=== PATIENT | male | born 1965 | race Caucasian/White ===

== ENCOUNTER 2017-10-27 00:10 | Inpatient (IN) | payer OTHER ==
--- NOTE | 2017-10-27 00:38 | PDOC ---
History of Present Illness - General History Source: Patient, Family Exam Limitations: Intoxication - History of Present Illness Initial Comments: 10/27/17 01:08 The patient is a 52 year old male, with a significant past medical history of colitis, who presents to the emergency department s/p syncopal episode at approximately 23:00 yesterday night. As per partner, the patient returned home from work intoxicated. Partner reports, patient went in to shower, when she heard a thud and a gurgling noise. Partner reports opening the bathroom door where she found the patient unconscious and cyanotic at the upper and lower extremities. EMS was activated. When EMS arrived on scene, patient was given 0.4 mg of Narcan. During transport patient admits to taking 4 Percocets and drinking 1.5 pints of alcohol. Patient states his Percocet was prescribed after a tooth extraction 6 months ago. However, as per partner, patient was only given Tylenol at the time. Partner also notes patient hit his head and was bleeding from his forehead at the time of the incident. Patient denies any headache, dizziness, or lightheadedness. He denies any abdominal pain, nausea, or vomiting. He reports some shortness of breath, but denies any chest pain, diaphoresis, or palpitations. He denies any fever, chills, or cough. Patient is not on any blood thinners. Allergies: NKDA Past Surgical History: Colon surgery Social History: Current everyday smoker( 1 pack per day since the age of 14.) ETOH abuse. Percocet use. <Hugo Lam - Last Filed: 10/27/17 02:15> <Madalyn Jiménez - Last Filed: 10/28/17 10:10> - General Stated Complaint: FALL Time Seen by Provider: 10/27/17 00:38 Past History <Hugo Lam - Last Filed: 10/27/17 02:15> - Past Medical History GI Disorders: Yes (COLITIS) - Surgical History Abdominal Surgery: Yes (COLON SURGERY 1989) - Suicide/Smoking/Psychosocial Hx Smoking Status: Yes Smoking History: Current every day smoker Number of Cigarettes Smoked Daily: 5 Hx Alcohol Use: Yes (OCCASIONALLY) Substance Use Type: Alcohol <Madalyn Jiménez - Last Filed: 10/28/17 10:10> - Past Medical History Allergies/Adverse Reactions: Allergies Allergy/AdvReac Type Severity Reaction Status Date / Time shellfish derived Allergy Verified 11/24/13 14:27 Home Medications: Ambulatory Orders No Home Medications 0 dose .ROUTE UTDICT 12/31/12 Review of Systems - Review of Systems Able to Perform ROS?: Yes Comments:: 10/27/17 01:09 GENERAL/CONSTITUTIONAL: +Intoxication. No fever or chills. No weakness. HEAD, EYES, EARS, NOSE AND THROAT: +Forehead laceration. No change in vision. No ear pain or discharge. No sore throat. CARDIOVASCULAR: +Shortness of breath. No chest pain or palpitations. RESPIRATORY: No cough, wheezing, or hemoptysis. GASTROINTESTINAL: No nausea, vomiting, diarrhea or constipation. GENITOURINARY: No dysuria, frequency, or change in urination. MUSCULOSKELETAL: No joint or muscle swelling or pain. No neck or back pain. SKIN: +Cyanotic. No rash NEUROLOGIC: +Loss of consciousness. No headache, vertigo, or change in strength/ sensation. ENDOCRINE: No increased thirst. No abnormal weight change. HEMATOLOGIC/LYMPHATIC: No anemia, easy bleeding, or history of blood clots. ALLERGIC/IMMUNOLOGIC: No hives or skin allergy. <Hugo Lam - Last Filed: 10/27/17 02:15> *Physical Exam - Physical Exam Comments: 10/27/17 01:45 GENERAL: Lethargic, arousable to sternal rub. In no acute distress HEAD: 2 lacerations above right eyebrow 2 cm and 1.5 cm respectively. No other signs of trauma EYES: PERRLA, EOMI, sclera anicteric, conjunctiva clear ENT: Auricles normal inspection, hearing grossly normal, nares patent, oropharynx clear without exudates. Moist mucosa NECK: Normal ROM, supple, no lymphadenopathy, JVD, or masses. No midline tenderness. LUNGS: +Diffuse ronchi bilaterally. No wheezes, rales, and no crackles HEART: +Tachycardic. Regular rhythm, normal S1 and S2, no murmurs, rubs or gallops ABDOMEN: Soft, nontender, normoactive bowel sounds. No guarding, no rebound. No masses EXTREMITIES: +Clubbing of fingers bilaterally. Normal range of motion, no edema. No cords, erythema, or tenderness NEUROLOGICAL: Lethargic, but arousable. Moving all extremities. Orientedx2. Cranial nerves II through XII grossly intact. SKIN: Warm, Dry, normal turgor, no rashes or lesions noted. <Hugo Lam - Last Filed: 10/27/17 02:15> ED Treatment Course - LABORATORY CBC & Chemistry Diagram: 10/27/17 00:50 10/27/17 00:50 - ADDITIONAL ORDERS Additional order review: Laboratory Results 10/27/17 00:42 Urine Color Yellow Urine Appearance Slcloudy Urine pH 5.0 Ur Specific [place] 1.017 Urine Protein 3+ H Urine Glucose (UA) 1+ H Urine Ketones Negative Urine Blood Negative Urine Nitrite Negative Urine Bilirubin Negative Urine Urobilinogen Negative Ur Leukocyte Esterase Negative Urine WBC (Auto) 10 Urine RBC (Auto) 7 Ur Epithelial Cells Few Hyaline Casts 3 Urine Mucus Rare 10/27/17 00:50 RBC 4.83 MCV 95.0 MCHC 33.7 RDW 13.3 MPV 8.0 Neutrophils % 55.1 Lymphocytes % 35.6 Monocytes % 7.3 Eosinophils % 1.4 Basophils % 0.6 - RADIOLOGY Radiograph Interpretation: 10/27/17 02:16 EXAM: Head CT INTERPRETED BY: Dr. Puma French REVIEWED BY: Dr. Jiménez IMPRESSION:1. There is no intracranial bleed, extra-axial fluid collection, mass effect, midline shift, hydrocephalus, acute territorial infarct or depressed skull fracture. 2. Left maxillary sinus disease/sinusitis. <Hugo Lam - Last Filed: 10/27/17 02:15> - LABORATORY CBC & Chemistry Diagram: 10/27/17 06:00 10/27/17 06:00 <Madalyn Jiménez - Last Filed: 10/28/17 10:10> Medical Decision Making - Medical Decision Making 10/27/17 01:51 pt presents to the ED after found minimally responsive by his family. Awoke after narcan by EMS. In the ED, patient is lethargic, requiring repeat doses of narcan. + diffuse rhonchi. CXR checked to rule out PNA and is positive for diffuse left sided infiltrate. Will check Ct head and C spine to rule out intracranial or cervical spinal injury. Will check labs and treat PNA with antibiotics. Will likely admit for inpatient treatemnt of PNA given the extent of the pnumonia and his persistent hypoxia. <Madalyn Jiménez - Last Filed: 10/28/17 10:10> *DC/Admit/Observation/Transfer - Attestations Scribe Attestion: 10/27/17 01:18 Documentation prepared by Hugo Lam, acting as medical practice administrator for Madalyn Jiménez MD. <Hugo Lam - Last Filed: 10/27/17 02:15> - Discharge Dispostion Admit: Yes <Madalyn Jiménez - Last Filed: 10/28/17 10:10> Diagnosis at time of Disposition: Intoxication, Laceration Pneumonia Qualifiers: Pneumonia type: due to unspecified organism Laterality: left Lung location: lower lobe of lung Qualified Code(s): J18.1 - Lobar pneumonia, unspecified organism - Discharge Dispostion Condition at time of disposition: Stable
[2017-10-27] MEDS ORDERED: NALOXONE HCL 0.4 MG/ML VIAL ONE ×2 (00:55→02:07)
[2017-10-27 00:56] LABS: URINE APPEARANCE SLCLOUDY; URINE BILIRUBIN NEGATIVE (NEGATIVE); URINE BLOOD NEGATIVE (NEGATIVE); URINE COLOR YELLOW; URINE GLUCOSE (UA) 1+ (NEGATIVE); URINE KETONE NEGATIVE (NEGATIVE); URINE LEUK ESTERASE NEGATIVE (NEGATIVE); URINE NITRITE NEGATIVE (NEGATIVE); URINE UROBILINOGEN NEGATIVE mg/dL (0.2-1.0)
[2017-10-27 00:58] LABS: URINE PROTEIN 3+ (NEGATIVE)
[2017-10-27 00:59] LABS: BASO % 0.6 % (0-2.0); EOS % 1.4 % (0-4.5); HEMATOCRIT 45.9 % (35.4-49); HEMOGLOBIN 15.5 GM/dL (11.7-16.9); LYMPH % 35.6 % (8-40); MCHC 33.7 g/dl (32.0-35.9); MONO % 7.3 % (3.8-10.2); NEUT % 55.1 % (42.8-82.8); PLATELET COUNT 302 K/MM3 (134-434); RBC 4.83 M/mm3 (4.00-5.60); RDW 13.3 % (11.9-15.9); WHITE BLOOD COUNT 16.1 K/mm3 (4.0-10.0)
[2017-10-27 01:01] LABS: EPI CELLS FEW /HPF (FEW); URINE HYALINE CAST 3 /lpf; URINE MUCUS RARE
[2017-10-27] MEDS ORDERED: NALOXONE HCL 0.4 MG/ML VIAL IVPUSH ONE (01:19)
[2017-10-27] MEDS ORDERED: ALBUTEROL SO4 2.5/IPRATROPIUM 0.5 INH SOL 3 ML VIAL.NEB. NEB ONE (01:27)
[2017-10-27 01:30] LABS: ALBUMIN 4.3 g/dl (3.4-5.0); ANION GAP 12 (8-16); BILIRUBIN,TOTAL 0.6 mg/dL (0.2-1.0); BLOOD UREA NITROGEN 16 mg/dL (7-18); CALCIUM 8.5 mg/dL (8.5-10.1); CHLORIDE 104 mmol/L (98-107); CO2 24 mmol/L (21-32); CREATININE 0.8 mg/dL (0.7-1.3); GLUCOSE,RANDOM 192 mg/dL (74-106); POTASSIUM 3.5 mmol/L (3.5-5.1); SGOT/AST 148 U/L (15-37); SGPT/ALT 111 U/L (12-78); SODIUM 140 mmol/L (136-145); TOT PROT 7.7 g/dl (6.4-8.2)
[2017-10-27 01:31] LABS: ALK PHOS 98 U/L (45-117)
[2017-10-27] MEDS ORDERED: CEFTRIAXONE 1 GM in DEXTROSE 5%-WATER - 50 ML IVPB ONE (01:44)
[2017-10-27] MEDS ORDERED: AZITHROMYCIN IVPB 500 MG in DEXTROSE 5%-WATER - 250 ML IVPB ONE (01:44)
[2017-10-27] MEDS ORDERED: LIDOCAINE 1%/EPI 1:100000 (20 ML MULTI DOSE VIAL) INF ONE (01:47)
[2017-10-27] MEDS ORDERED: LIDOCAINE 1%/EPI 1:100000 (20 ML MULTI DOSE VIAL) ONE (01:47)
[2017-10-27] MEDS ORDERED: CEFTRIAXONE 1 GM/50 ML BAG ONE (01:48)
[2017-10-27] MEDS ORDERED: AZITHROMYCIN IVPB 250 ML IVPB ONE (01:48)
[2017-10-27] MEDS ORDERED: DIPHTH,PERTUSS(ACELL),TET 0.5 ML DISP.SYRIN IM ONE (01:51)
[2017-10-27 02:28] LABS: METHADONE, UR NEGATIVE ng/ml (CUTOFF=300); PHENCYCLIDINE,URINE NEGATIVE ng/ml (CUTOFF=25); URINE AMPHETAMINES NEGATIVE ng/ml (CUTOFF=500); URINE BARBITURATES NEGATIVE ng/ml (CUTOFF=200); URINE BENZODIAZEPINES NEGATIVE ng/ml (CUTOFF=200)
[2017-10-27 02:34] LABS: COCAINE, UR POSITIVE ng/ml (CUTOFF=300)
[2017-10-27 02:35] LABS: OPIATES, URI POSITIVE ng/ml (CUTOFF=300)
--- NOTE | 2017-10-27 03:07 | PDOC ---
*Physical Exam - Vital Signs Last Vital Signs Temp Pulse Resp BP Pulse Ox 98.6 F 113 H 14 150/70 95 10/27/17 01:02 10/27/17 02:20 10/27/17 02:20 10/27/17 02:20 10/27/17 02:20 ED Treatment Course - LABORATORY CBC & Chemistry Diagram: 10/27/17 00:50 10/27/17 00:50 - ADDITIONAL ORDERS Additional order review: Laboratory Results 10/27/17 10/27/17 10/27/17 01:42 00:50 00:50 Sodium 140 Potassium 3.5 Chloride 104 Carbon Dioxide 24 Anion Gap 12 BUN 16 Creatinine 0.8 Creat Clearance w eGFR > 60 Random Glucose 192 H Calcium 8.5 Total Bilirubin 0.6 AST 148 H ALT 111 H Alkaline Phosphatase 98 Creatine Kinase 333 H Creatine Kinase Index 1.2 CK-MB (CK-2) 4.117 H Troponin I < 0.02 Total Protein 7.7 Albumin 4.3 Urine Color Urine Appearance Urine pH Ur Specific [place] Urine Protein Urine Glucose (UA) Urine Ketones Urine Blood Urine Nitrite Urine Bilirubin Urine Urobilinogen Ur Leukocyte Esterase Urine WBC (Auto) Urine RBC (Auto) Ur Epithelial Cells Hyaline Casts Urine Mucus Opiates Screen Methadone Screen Acetaminophen < 2 L Barbiturate Screen Phencyclidine Screen Ur Amphetamines Screen MDMA (Ecstasy) Screen Benzodiazepines Screen Cocaine Screen U Marijuana (THC) Screen Alcohol, Quantitative 123.9 H* 10/27/17 10/27/17 00:42 00:42 Sodium Potassium Chloride Carbon Dioxide Anion Gap BUN Creatinine Creat Clearance w eGFR Random Glucose Calcium Total Bilirubin AST ALT Alkaline Phosphatase Creatine Kinase Creatine Kinase Index CK-MB (CK-2) Troponin I Total Protein Albumin Urine Color Yellow Urine Appearance Slcloudy Urine pH 5.0 Ur Specific [place] 1.017 Urine Protein 3+ H Urine Glucose (UA) 1+ H Urine Ketones Negative Urine Blood Negative Urine Nitrite Negative Urine Bilirubin Negative Urine Urobilinogen Negative Ur Leukocyte Esterase Negative Urine WBC (Auto) 10 Urine RBC (Auto) 7 Ur Epithelial Cells Few Hyaline Casts 3 Urine Mucus Rare Opiates Screen Positive Methadone Screen Negative Acetaminophen Barbiturate Screen Negative Phencyclidine Screen Negative Ur Amphetamines Screen Negative MDMA (Ecstasy) Screen Negative Benzodiazepines Screen Negative Cocaine Screen Positive U Marijuana (THC) Screen Negative Alcohol, Quantitative 10/27/17 00:50 RBC 4.83 MCV 95.0 MCHC 33.7 RDW 13.3 MPV 8.0 Neutrophils % 55.1 Lymphocytes % 35.6 Monocytes % 7.3 Eosinophils % 1.4 Basophils % 0.6 - Medications Given in the ED: ED Medications Discontinued Medications Generic Name Dose Route Start Last Admin Trade Name Elvinq PRN Reason Stop Dose Admin Albuterol/Ipratropium 1 amp 10/27/17 01:27 10/27/17 01:32 Duoneb - NEB 10/27/17 01:28 1 amp ONCE ONE Administration Diphtheria/Tetanus/Acell Pertussis 0.5 ml 10/27/17 01:51 10/27/17 02:04 Boostrix - IM 10/27/17 01:52 0.5 ml .ONCE ONE Administration Azithromycin 500 mg/ Dextrose 250 mls @ 250 mls/hr 10/27/17 01:44 10/27/17 02 :03 IVPB 10/27/17 02:43 250 mls/hr ONCE ONE Administration Ceftriaxone Sodium 1 gm/ 50 mls @ 100 mls/hr 10/27/17 01:44 10/27/17 02:03 Dextrose IVPB 10/27/17 02:13 100 mls/hr ONCE ONE Administration Lidocaine/Epinephrine 10 ml 10/27/17 01:47 10/27/17 02:04 Xylocaine 1%-Epi 1:100,000 INF 10/27/17 01:48 10 ml ONCE ONE Administration Naloxone HCl 0.4 mg 10/27/17 01:19 10/27/17 01:19 Narcan - IVPUSH 10/27/17 01:20 0.4 mg NOW ONE Administration Medical Decision Making - Medical Decision Making 10/27/17 03:[address] butts agree with admission for further management of pna and hypoxia, and intoxication Case discussed in detail with admitting physician including history, physical exam and ancillary studies. Admitting physician has assumed care for the patient, will follow all pending diagnostics and will complete the evaluation and treatment. *DC/Admit/Observation/Transfer Diagnosis at time of Disposition: Intoxication, Laceration Pneumonia Qualifiers: Pneumonia type: due to unspecified organism Laterality: left Lung location: lower lobe of lung Qualified Code(s): J18.1 - Lobar pneumonia, unspecified organism - Discharge Dispostion Condition at time of disposition: Stable Admit: Yes - Referrals - Patient Instructions - Post Discharge Activity
--- NOTE | 2017-10-27 03:29 | HP ---
CHIEF COMPLAINT: " brought in by EMS after he was found unconscious in the bathroom floor" PCP: Dr. Frost HISTORY OF PRESENT ILLNESS: Patient is a 52 year old male was brought in by EMS after he was found unconscious in the bathroom floor last night. As per the patient, he has a green party after work where he drank alcohol, snorted a bag of heroine and cocaine, came home and was in the bathroom to take shower and passed out. Doesn't remember the incidences post fall. Denies headache, shaking of the body, urine or stool incontinence, tongue bite. Patients reports she heard a loud noise in the bathroom and found the patient lying on the floor, making a gurgling sound with cyanosis of the tips of the extremities. EMS was called immediately, saturation was in mid 80's, narcan was given and patient regained consciouness. Complaints of dry cough, dry cough, night sweats on /off since a couple of months . No sick contacts. Denies fever, chills, rigors, sweating, chest pain, sob, palpitation, abdominal pain. Had one episode of vomiting in the ED. Bowel/Bladder habit normal; sleep/Appetite normal prior illness. Patient had a laceration in the right eyebrow approx 2 x 1.5 cm and it was sutured in the ED. ER course was notable for: (1) Afebrile, hemodynamically stable, leukocytosis of 16.1, HR 113 bpm, u tox positive for cocaine, opiates, alcohol level 123.9 (2) CT head, CXR, CT spine (3) Azithromycin, Ceftriaxone, Tetanus, Duoneb. 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 Drugs: Cocaine, heroine Family History: Non contributory Allergies shellfish derived Allergy (Verified 11/24/13 14:27) HOME MEDICATIONS: Home Medications Medication Instructions Recorded No Home Medications 0 dose .ROUTE UTDICT 12/31/12 REVIEW OF SYSTEMS CONSTITUTIONAL: Absent: fever, chills, diaphoresis, generalized weakness, malaise, loss of appetite, weight change HEENT: Absent: rhinorrhea, nasal congestion, throat pain, throat swelling, difficulty swallowing, mouth swelling, ear pain, eye pain, visual changes CARDIOVASCULAR: Absent: chest pain, syncope, palpitations, irregular heart rate, lightheadedness , peripheral edema RESPIRATORY: Absent: cough, shortness of breath, dyspnea with exertion, orthopnea, wheezing, stridor, hemoptysis GASTROINTESTINAL: Present: Nausea Absent: abdominal pain, abdominal distension, nausea, vomiting, diarrhea, constipation, melena, hematochezia GENITOURINARY: Absent: dysuria, frequency, urgency, hesitancy, hematuria, flank pain, genital pain MUSCULOSKELETAL: Absent: myalgia, arthralgia, joint swelling, back pain, neck pain SKIN: Absent: rash, itching, pallor HEMATOLOGIC/IMMUNOLOGIC: Absent: easy bleeding, easy bruising, lymphadenopathy, frequent infections ENDOCRINE: Absent: unexplained weight gain, unexplained weight loss, heat intolerance, cold intolerance NEUROLOGIC: Present: LOC Absent: headache, focal weakness or paresthesias, dizziness, unsteady gait, seizure, mental status changes, bladder or bowel incontinence PSYCHIATRIC: Absent: anxiety, depression, suicidal or homicidal ideation, hallucinations. PHYSICAL EXAMINATION Vital Signs - 24 hr 10/27/17 10/27/17 01:02 02:20 Temperature 98.6 F Pulse Rate 113 H Pulse Rate [ 113 H Apical] Respiratory 17 14 Rate Blood Pressure 165/89 Blood Pressure 150/70 [Left Arm] O2 Sat by Pulse 95 95 Oximetry (%) GENERAL: Patient is sitting in bed, comfortably, drowsy but arousable, slurring of speech due to intoxication and fully oriented, in no acute distress. HEAD: Laceration on the right eyebrow approx 2x 1.5 cm, Normal with no signs of trauma. EYES: EOM intact, no pallor or icterus. EARS, NOSE, THROAT: Ears normal. Moist mucous membranes. NECK: Supple. LUNGS: Breath sounds equal, clear to auscultation bilaterally. No wheezes, and no crackles. No accessory muscle use. HEART: Tachycardic, Regular rate and rhythm, normal S1 and S2 without murmur. ABDOMEN: Soft, nontender, not distended, normoactive bowel sounds, no guarding, no rebound, no masses. No hepatomegaly or splenomegaly. MUSCULOSKELETAL: Normal range of motion at all joints. No bony deformities or tenderness. No CVA tenderness. UPPER EXTREMITIES: 2+ pulses, warm, well-perfused. No cyanosis. No clubbing. No peripheral edema. LOWER EXTREMITIES: 2+ pulses, warm, well-perfused. No calf tenderness. No peripheral edema. NEUROLOGICAL: No facial droop, power 5/5 in all extremities. slurring of speech likely due to intoxication. Gait not observed. PSYCHIATRIC: Cooperative. Good eye contact. Appropriate mood and affect. SKIN: Warm, dry, normal turgor, no rashes or lesions noted, normal capillary refill. Laboratory Results - last 24 hr 10/27/17 10/27/17 10/27/17 00:42 00:42 00:50 WBC RBC Hgb Hct MCV MCH MCHC RDW Plt Count MPV Neutrophils % Lymphocytes % Monocytes % Eosinophils % Basophils % Sodium Potassium Chloride Carbon Dioxide Anion Gap BUN Creatinine Creat Clearance w eGFR Random Glucose Calcium Total Bilirubin AST ALT Alkaline Phosphatase Creatine Kinase Creatine Kinase Index CK-MB (CK-2) Troponin I Total Protein Albumin Urine Color Yellow Urine Appearance Slcloudy Urine pH 5.0 Ur Specific [place] 1.017 Urine Protein 3+ H Urine Glucose (UA) 1+ H Urine Ketones Negative Urine Blood Negative Urine Nitrite Negative Urine Bilirubin Negative Urine Urobilinogen Negative Ur Leukocyte Esterase Negative Urine WBC (Auto) 10 Urine RBC (Auto) 7 Ur Epithelial Cells Few Hyaline Casts 3 Urine Mucus Rare Opiates Screen Positive Methadone Screen Negative Acetaminophen Barbiturate Screen Negative Phencyclidine Screen Negative Ur Amphetamines Screen Negative MDMA (Ecstasy) Screen Negative Benzodiazepines Screen Negative Cocaine Screen Positive U Marijuana (THC) Screen Negative Alcohol, Quantitative 123.9 H* 10/27/17 10/27/17 10/27/17 00:50 00:50 01:42 WBC 16.1 H RBC 4.83 Hgb 15.5 Hct 45.9 MCV 95.0 MCH 32.0 MCHC 33.7 RDW 13.3 Plt Count 302 MPV 8.0 Neutrophils % 55.1 Lymphocytes % 35.6 Monocytes % 7.3 Eosinophils % 1.4 Basophils % 0.6 Sodium 140 Potassium 3.5 Chloride 104 Carbon Dioxide 24 Anion Gap 12 BUN 16 Creatinine 0.8 Creat Clearance w eGFR > 60 Random Glucose 192 H Calcium 8.5 Total Bilirubin 0.6 AST 148 H ALT 111 H Alkaline Phosphatase 98 Creatine Kinase 333 H Creatine Kinase Index 1.2 CK-MB (CK-2) 4.117 H Troponin I < 0.02 Total Protein 7.7 Albumin 4.3 Urine Color Urine Appearance Urine pH Ur Specific [place] Urine Protein Urine Glucose (UA) Urine Ketones Urine Blood Urine Nitrite Urine Bilirubin Urine Urobilinogen Ur Leukocyte Esterase Urine WBC (Auto) Urine RBC (Auto) Ur Epithelial Cells Hyaline Casts Urine Mucus Opiates Screen Methadone Screen Acetaminophen < 2 L Barbiturate Screen Phencyclidine Screen Ur Amphetamines Screen MDMA (Ecstasy) Screen Benzodiazepines Screen Cocaine Screen U Marijuana (THC) Screen Alcohol, Quantitative ASSESSMENT/PLAN: Patient is a 52 year old male with significant past medical history of polysubstance abuse (active smoker, alcohol abuse, cocaine and opiate abuse) and colitis presented to the ED after a syncopal episode following intoxication and was found to have Pneumonia. # Sepsis secondary to possible Community acquired Pneumonia vs aspiration pneumonia Leukocytosis 16.1; Tachycardic 113 bpm with a possible left lower infiltrate vs aspiration Was given Ceftriaxone and Azithromycin in the ED Admitted in Med-Surg/Inpatient IV Banana bag x 1 followed by IV NS @ 100 mls/hr Continue with IV Ceftriaxone and IV Azithromycin (EKG not done, please check Qtc and give azithro only if its normal) Flu swab to be sent to r/o flu Sputum cultures/Blood cultures Urine for legionella antigen repeat cbc in am # Acute hypoxic respiratory failure secondary to possible CAP vs opiate abuse As mentioned above Albuterol PRN Oxygen PRN # Possible maxillary sinusitis no tenderness on palpation of the sinuses Treating with # Alcohol intoxication Alcohol level of 123 Librium protocol cannot be started due to elevated liver enzymes. He is now still intoxicated and no signs of withdrawal at this time. Will give ativan PO 2mg Q4H PRN and Ativan 2mg IV Q2H PRN Banana bag x 1 Detox consult # Elevated liver enzymes Likely secondary to alcohol intake repeat CMP in am. Avoid hepatotoxic drugs. # Polysubstance abuse U tox positive for opiates and cocaine Counseling for cessation Detox consult and once stable to transfer to detox. would like to send patient for a detox # Laceration of forehead s/p mechanical fall after alcohol intoxication Tetanus shot given in the ED Head CT: negative for Bleed or shift, (official read pending) # FEN IV Banana bag x 1 then IV NS @ 100mls/hr Electrolytes to be repeated in AM Regular diet # Prophylaxis For DVT: Heparin 5000 IU sq TID For GI: Not indicated # Code Status: Full Code # Dispo: Admitted in Med-Surg. Duration of stay unknown. Illness, Investigation and Plan of care explained to the patient. He verbalized understanding. Case discussed with Dr. Stokes. Visit type - Emergency Visit Emergency Visit: Yes ED Registration Date: 10/27/17 Care time: The patient presented to the Emergency Department on the above date and was hospitalized for further evaluation of their emergent condition. - New Patient This patient is new to me today: Yes Date on this admission: 10/27/17 - Critical Care Critical Care patient: No
[2017-10-27] MEDS ORDERED: ALBUTEROL SO4 0.083% IH SOL 2.5 MG/3 ML VIAL.NEB. NEB PRN (04:14)
[2017-10-27 04:15] LABS: PHOSPHOROUS 5.1 mg/dL (2.5-4.9)
[2017-10-27] MEDS ORDERED: chlordiazePOXIDE HCL 25 MG CAPSULE PO PRN ×2 (04:25→10:22)
[2017-10-27] MEDS ORDERED: FOLIC ACID INJECTION - 1 MG, THIAMINE HCL 100 MG, MULTIVIT INJECTION ADULT 10 ML in SOD... IVPB ONE (04:30)
--- NOTE | 2017-10-27 04:42 | HP ---
CHIEF COMPLAINT: Intoxicated History taken from both patient and . HISTORY OF PRESENT ILLNESS: Patient is a 52 yo m with a history of Colitis s/p colectomy (), polysubstance abuse, JAYLYN, BIBA after his found him unconscious on bathroom floor. said she was in the room and heard gurgling noises for 5 min. She went to go check on her in the bathroom and found him unconscious and bleeding on the right side of his head. Patient does not remember how he fell. denies shaking body movements. Patient said he drank at work and admitted to snorting cocaine and a bag of heroine. He also admits to taking 4 percocets with 1.5 L of alcohol. Multiple rounds of Narcan given. Patient presented to the ED with O2 sat in the mid 80's. Patient also endorses a dry cough that started 2 days ago. 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 Patient denies headache, chest pain, dizziness, lightheadedness, nausea, vomiting, diarrhea, cough, sore throat or runny nose. ER course was notable for: (1) Afebrile, WBC: 16.1, Tachy 113, possible left lower lobe infiltrate on CXR (2) Azithromycin, Ceftriaxone (3) CT Head, Spine: no acute pathology, pending official read Recent Travel: n/a PAST MEDICAL HISTORY: per HPI PAST SURGICAL HISTORY: s/p colectomy in Social History: Smokin PPD Alcohol: 4-5 times a week, at least 1 pint Drugs: Cocaine, heroine, suboxone Family History: Allergies shellfish derived Allergy (Verified 11/24/13 14:27) HOME MEDICATIONS: Home Medications Medication Instructions Recorded No Home Medications 0 dose .ROUTE UTDICT 12/31/12 REVIEW OF SYSTEMS CONSTITUTIONAL: Absent: fever, chills, diaphoresis, generalized weakness, malaise, loss of appetite, weight change HEENT: Absent: rhinorrhea, nasal congestion, throat pain, throat swelling, difficulty swallowing, mouth swelling, ear pain, eye pain, visual changes CARDIOVASCULAR: syncope Absent: chest pain, palpitations, irregular heart rate, lightheadedness, peripheral edema RESPIRATORY: Absent: cough, shortness of breath, dyspnea with exertion, orthopnea, wheezing, stridor, hemoptysis GASTROINTESTINAL: Absent: abdominal pain, abdominal distension, nausea, vomiting, diarrhea, constipation, melena, hematochezia GENITOURINARY: Absent: dysuria, frequency, urgency, hesitancy, hematuria, flank pain, genital pain MUSCULOSKELETAL: Absent: myalgia, arthralgia, joint swelling, back pain, neck pain SKIN: Absent: rash, itching, pallor HEMATOLOGIC/IMMUNOLOGIC: Absent: easy bleeding, easy bruising, lymphadenopathy, frequent infections ENDOCRINE: Absent: unexplained weight gain, unexplained weight loss, heat intolerance, cold intolerance NEUROLOGIC: Absent: headache, focal weakness or paresthesias, dizziness, unsteady gait, seizure, mental status changes, bladder or bowel incontinence PSYCHIATRIC: Absent: anxiety, depression, suicidal or homicidal ideation, hallucinations. PHYSICAL EXAMINATION Vital Signs - 24 hr 10/27/17 10/27/17 01:02 02:20 Temperature 98.6 F Pulse Rate 113 H Pulse Rate [ 113 H Apical] Respiratory 17 14 Rate Blood Pressure 165/89 Blood Pressure 150/70 [Left Arm] O2 Sat by Pulse 95 95 Oximetry (%) GENERAL: Awake, alert, and fully oriented, in no acute distress. Somnolent towards end of physical. HEAD: sutured 2cm and 1cm laceration above right eyebrow. No signs of other trauma. EYES: Pupils equal, round and reactive to light, extraocular movements intact, sclera anicteric, conjunctiva clear. EARS, NOSE, THROAT: oropharynx clear without exudates, poor dentition. Moist mucous membranes. NECK: supple without lymphadenopathy, JVD, or masses. LUNGS: Breath sounds equal, clear to auscultation bilaterally. No wheezes, and no crackles. HEART: tachy, regular rhythm, normal S1 and S2 without murmur, rub or gallop. ABDOMEN: Soft, nontender, not distended, normoactive bowel sounds, no guarding, no rebound, no masses. UPPER EXTREMITIES: 2+ pulses, warm, well-perfused. No tremors. No cyanosis. No clubbing. No peripheral edema. LOWER EXTREMITIES: 2+ pulses, warm, well-perfused. No calf tenderness. No peripheral edema. NEUROLOGICAL: Cranial nerves II-XII intact. Normal speech. Normal gait. SKIN: Warm, dry, normal turgor, no rashes or lesions noted, normal capillary refill. Laboratory Results - last 24 hr 10/27/17 10/27/17 10/27/17 00:42 00:42 00:50 WBC RBC Hgb Hct MCV MCH MCHC RDW Plt Count MPV Neutrophils % Lymphocytes % Monocytes % Eosinophils % Basophils % Sodium Potassium Chloride Carbon Dioxide Anion Gap BUN Creatinine Creat Clearance w eGFR Random Glucose Calcium Phosphorus Magnesium Total Bilirubin AST ALT Alkaline Phosphatase Creatine Kinase Creatine Kinase Index CK-MB (CK-2) Troponin I Total Protein Albumin Urine Color Yellow Urine Appearance Slcloudy Urine pH 5.0 Ur Specific [place] 1.017 Urine Protein 3+ H Urine Glucose (UA) 1+ H Urine Ketones Negative Urine Blood Negative Urine Nitrite Negative Urine Bilirubin Negative Urine Urobilinogen Negative Ur Leukocyte Esterase Negative Urine WBC (Auto) 10 Urine RBC (Auto) 7 Ur Epithelial Cells Few Hyaline Casts 3 Urine Mucus Rare Opiates Screen Positive Methadone Screen Negative Acetaminophen Barbiturate Screen Negative Phencyclidine Screen Negative Ur Amphetamines Screen Negative MDMA (Ecstasy) Screen Negative Benzodiazepines Screen Negative Cocaine Screen Positive U Marijuana (THC) Screen Negative Alcohol, Quantitative 123.9 H* 10/27/17 10/27/17 10/27/17 00:50 00:50 00:50 WBC 16.1 H RBC 4.83 Hgb 15.5 Hct 45.9 MCV 95.0 MCH 32.0 MCHC 33.7 RDW 13.3 Plt Count 302 MPV 8.0 Neutrophils % 55.1 Lymphocytes % 35.6 Monocytes % 7.3 Eosinophils % 1.4 Basophils % 0.6 Sodium 140 Potassium 3.5 Chloride 104 Carbon Dioxide 24 Anion Gap 12 BUN 16 Creatinine 0.8 Creat Clearance w eGFR > 60 Random Glucose 192 H Calcium 8.5 Phosphorus 5.1 H Magnesium 2.0 Total Bilirubin 0.6 AST 148 H ALT 111 H Alkaline Phosphatase 98 Creatine Kinase 333 H Creatine Kinase Index 1.2 CK-MB (CK-2) 4.117 H Troponin I < 0.02 Total Protein 7.7 Albumin 4.3 Urine Color Urine Appearance Urine pH Ur Specific [place] Urine Protein Urine Glucose (UA) Urine Ketones Urine Blood Urine Nitrite Urine Bilirubin Urine Urobilinogen Ur Leukocyte Esterase Urine WBC (Auto) Urine RBC (Auto) Ur Epithelial Cells Hyaline Casts Urine Mucus Opiates Screen Methadone Screen Acetaminophen Barbiturate Screen Phencyclidine Screen Ur Amphetamines Screen MDMA (Ecstasy) Screen Benzodiazepines Screen Cocaine Screen U Marijuana (THC) Screen Alcohol, Quantitative 10/27/17 01:42 WBC RBC Hgb Hct MCV MCH MCHC RDW Plt Count MPV Neutrophils % Lymphocytes % Monocytes % Eosinophils % Basophils % Sodium Potassium Chloride Carbon Dioxide Anion Gap BUN Creatinine Creat Clearance w eGFR Random Glucose Calcium Phosphorus Magnesium Total Bilirubin AST ALT Alkaline Phosphatase Creatine Kinase Creatine Kinase Index CK-MB (CK-2) Troponin I Total Protein Albumin Urine Color Urine Appearance Urine pH Ur Specific [place] Urine Protein Urine Glucose (UA) Urine Ketones Urine Blood Urine Nitrite Urine Bilirubin Urine Urobilinogen Ur Leukocyte Esterase Urine WBC (Auto) Urine RBC (Auto) Ur Epithelial Cells Hyaline Casts Urine Mucus Opiates Screen Methadone Screen Acetaminophen < 2 L Barbiturate Screen Phencyclidine Screen Ur Amphetamines Screen MDMA (Ecstasy) Screen Benzodiazepines Screen Cocaine Screen U Marijuana (THC) Screen Alcohol, Quantitative CT HEAD: Pending official read. No acute bleeding. Suspicious for Left maxillary sinusitis. ASSESSMENT/PLAN: Patient is a 52 year old male with significant past medical history of colitis s /p colectomy, polysubstance abuse (active smoker, alcohol abuse, cocaine, suboxone ,heroine) presented to the ED after a syncopal episode following drug and alcohol intoxication and was found to have Pneumonia. #Sepsis secondary to CAP vs Aspiration -Leukocytosis 16.1, Tachy -CXR with possible LLL infiltrate -Cont. IV Abx: Azithromycin, Ceftriaxone (Day 1) -FU Bcx, Ucx, urine antigens, sputum cultures -IV Fluids NS @100 ml/hour -Flu swab to be sent -FU am labs #Acute Hypoxic Respiratory failure -likely secondary to drug overdose and superimposed CAP -02 sat in the mid 80's on arrival, 97% on non-rebreather -Cont. IV abx -Cont. Duonebs -Cont. O2 -Maintain O2 sat >90% #Alcohol intoxication -CIWA 2 -Alcohol Level 123 -No withrdrawals at this time -Monitor for signs of withdrawal -Consider Librium protocol -Banana bag #Polysubstance abuse -Cocaine, heroine, suboxone -consulted [facility] -counseling for cessation #Elevated LFT's -liver U/S -follow up AM labs #Laceration of forehead -s/p mechanical fall after alcohol intoxication -Tetanus shot given in the ED -Head CT: negative for Bleed or shift, (official read pending) #FEN -NS @ 100 NS, 1x Banana bag -WNL -Regular diet #DVT -Hep SQ Dispo: Med-surge, unknown duration of stay Visit type - Emergency Visit Emergency Visit: Yes ED Registration Date: 10/27/17 Care time: The patient presented to the Emergency Department on the above date and was hospitalized for further evaluation of their emergent condition. - New Patient This patient is new to me today: No - Critical Care Critical Care patient: No
[2017-10-27 05:05] VITALS: BMI 26.2
--- NOTE | 2017-10-27 05:47 | PN ---
Teaching Attending Note Name of Resident: Kassie Kaye ATTENDING PHYSICIAN STATEMENT I saw and evaluated the patient. I reviewed the resident's note and discussed the case with the resident. I agree with the resident's findings and plan as documented. SUBJECTIVE:52 y/o M Brought in by who found him unconscious on bathroom floor. Patient states he drank at work and used suboxone, cocaine and heroine. PMH:Colitis s/p colectomy , polysubstance abuse, JAYLYN, OBJECTIVE: GEN: Arousable, cooperative, fidgety Heent: right supraorbital lacertions s/p sutures, PERRLA, EOMI, dry mucous membranes Lungs: CTA CVS: Tachycardic Abd: Soft, NT, ND, BS+ Ext: Nl ROM, 2+pulse CBCD WBC 16.1 K/mm3 (4.0-10.0) H 10/27/17 00:50 RBC 4.83 M/mm3 (4.00-5.60) 10/27/17 00:50 Hgb 15.5 GM/dL (11.7-16.9) 10/27/17 00:50 Hct 45.9 % (35.4-49) 10/27/17 00:50 MCV 95.0 fl (80-96) 10/27/17 00:50 MCHC 33.7 g/dl (32.0-35.9) 10/27/17 00:50 RDW 13.3 % (11.9-15.9) 10/27/17 00:50 Plt Count 302 K/MM3 (134-434) 10/27/17 00:50 MPV 8.0 fl (7.5-11.1) 10/27/17 00:50 CMP Sodium 140 mmol/L (136-145) 10/27/17 00:50 Potassium 3.5 mmol/L (3.5-5.1) 10/27/17 00:50 Chloride 104 mmol/L (98-107) 10/27/17 00:50 Carbon Dioxide 24 mmol/L (21-32) 10/27/17 00:50 Anion Gap 12 (8-16) 10/27/17 00:50 BUN 16 mg/dL (7-18) 10/27/17 00:50 Creatinine 0.8 mg/dL (0.7-1.3) 10/27/17 00:50 Creat Clearance w eGFR > 60 (>60) 10/27/17 00:50 Random Glucose 192 mg/dL (74-106) H 10/27/17 00:50 Calcium 8.5 mg/dL (8.5-10.1) 10/27/17 00:50 Total Bilirubin 0.6 mg/dL (0.2-1.0) 10/27/17 00:50 AST 148 U/L (15-37) H 10/27/17 00:50 ALT 111 U/L (12-78) H 10/27/17 00:50 Alkaline Phosphatase 98 U/L (45-117) 10/27/17 00:50 Total Protein 7.7 g/dl (6.4-8.2) 10/27/17 00:50 Albumin 4.3 g/dl (3.4-5.0) 10/27/17 00:50 CARDIAC ENZYMES Creatine Kinase 333 IU/L (39-308) H 10/27/17 00:50 Troponin I < 0.02 ng/ml (0.00-0.05) 10/27/17 00:50 ASSESSMENT AND PLAN: Admitted for acute hypoxic respiratory failure secondary to drug abuse with fall. Patient also found to be septic possibly secondary to CAP continue ceftriaxone and azithromycin. Impending alcohol withdrawal IVF banana bag, MVT, Folate and thiamine. Patient counselled on polysubstance abuse. Continue care as documented in H&P.
[2017-10-27] MEDS: HEPARIN NA (PORCINE) 5,000 UNITS/ML 1ML VIAL SQ SCH ×3 (05:51→22:07)
[2017-10-27] MEDS ORDERED: LORazepam 2 MG/ML SDV VIAL IVPUSH PRN (06:48)
[2017-10-27] MEDS ORDERED: LORazepam 1 MG TABLET PO PRN (06:48)
[2017-10-27 07:48] LABS: HEMATOCRIT 47.4 % (35.4-49); HEMOGLOBIN 15.4 GM/dL (11.7-16.9); MCH 31.4 pg (25.7-33.7); MCHC 32.5 g/dl (32.0-35.9); MEAN CELL VOLUME 96.8 fl (80-96); MEAN PLT VOLUME 8.7 fl (7.5-11.1); PLATELET COUNT 284 K/MM3 (134-434); RDW 13.2 % (11.9-15.9); WHITE BLOOD COUNT 25.3 K/mm3 (4.0-10.0)
[2017-10-27 08:41] LABS: ALBUMIN 4.5 g/dl (3.4-5.0); ANION GAP 11 (8-16); BILIRUBIN,TOTAL 0.5 mg/dL (0.2-1.0); BLOOD UREA NITROGEN 17 mg/dL (7-18); CALCIUM 8.5 mg/dL (8.5-10.1); CHLORIDE 103 mmol/L (98-107); CO2 26 mmol/L (21-32); CREATININE 0.9 mg/dL (0.7-1.3); GLUCOSE,RANDOM 96 mg/dL (74-106); POTASSIUM 4.4 mmol/L (3.5-5.1); SGOT/AST 95 U/L (15-37); SGPT/ALT 103 U/L (12-78); SODIUM 140 mmol/L (136-145); TOT PROT 8.1 g/dl (6.4-8.2)
[2017-10-27 08:42] LABS: ALK PHOS 98 U/L (45-117)
--- NOTE | 2017-10-27 08:50 | EKG ---
Test Reason : Blood Pressure : / mmHG Vent. Rate : 098 BPM Atrial Rate : 098 BPM P-R Int : 140 ms QRS Dur : 088 ms QT Int : 366 ms P-R-T Axes : 053 -29 067 degrees QTc Int : 467 ms NORMAL SINUS RHYTHM POSSIBLE LEFT ATRIAL ENLARGEMENT LEFT VENTRICULAR HYPERTROPHY ABNORMAL ECG NO PREVIOUS ECGS AVAILABLE Confirmed by SUSAN CASE MD ([id number]) on 10/27/2017 8:49:58 AM Referred By: Confirmed By:SUSAN CASE MD
--- NOTE | 2017-10-27 10:12 | CONSULT ---
"Consult Detox [facility] Reason for Current Admission/Consult: polysubstance use Referred by:: Anabell Fairchild - History History of Present Illness: Osmin Fermin | Reference #: [id number] Others' Prescriptions Patient Name: Tony Ellis Date: 1965 Address: [address] [place] [address] Sex: Male Rx Written Rx Dispensed Drug Quantity Days Supply Prescriber Name 08/20/2017 08/20/2017 acetaminophen-cod #3 tablet 15 5 Elvi Conrad DDS 07/11/2017 07/11/2017 acetaminophen-cod #3 tablet 10 3 Elvi Conrad DDS 52 yo m who overdosed on opioids, benzodiazepines, cocaine and alcohol, brought to ed od shawn Leong admitted for treatment of pneumonia. Pateint reports opioid use, prescription medications in past and daily alcohol use. with occasional benzo and cocaine abuse. has been in treatment in past, reports withdrawal sx when he deos nto use and was tremulous in ED and on floor . inititally responded well to detox regimen ordered meth/librium for opioid dependence but became drowsy and methadone d/c and libirum dose decreased becasue or presumed low opioid tolerance. now doing well no complaints. smokes 1 PPD, requesting patch/gum - History Source History Provided By: Patient, Medical Record, Caregiver Limitations to Obtaining History: No Limitations - Alcohol/Substance Use Hx Alcohol Use: Yes (daily) Hx Substance Use: Yes (coaine, prescription opioids, benzodiazepines abuse) Hx Substance Use Treatment: Yes (yes, new focus) - Current Drug/Alcohol Use Alcohol Route: Oral Frequency: Daily Amount used: 6 beers Age of first use: 22 Date of Last Use: 10/27/17 - Significant Medical Findings: 52 yo m with h/o chronic alcoholism and polysubstance use overdoed from opioids , benzodiazepines, cocaien and alcohol now admitted for treatment of aspiration pneumonia and alcohol detox and possible opioid withdrawla sx. COWS - Scale Resting Pulse: 1= LA 81-100 Sweatin= Chills/Flushing Restless Observation: 1= Difficult to Sit Still Pupil Size: 1= Pupils >than Normal Bone or Joint Aches: 1= Mild Discomfort Runny Nose/ Eye Tearin= Nasal Congestion GI Upset > 30mins: 1= Stomach Cramp Tremor Observation: 1= Tremor [place], Not Seen Yawning Observation: 0= None Anxiety or Irritability: 1=Feels Anxious/Irritable Goose Flesh Skin: 0=Smooth Skin COWS Score: 9 CIWA Score - CIWA Score Nausea/Vomitin-No Nausea/No Vomiting Muscle Tremors: 1-None Visible, but [place] Anxiety: 1-Mildly Anxious Agitation: 1-Slight > Activity Paroxysmal Sweats: No Perspiration Orientation: 0-Oriented Tacttile Disturbances: 0-None Auditory Disturbances: 0-None Visual Disturbances: 0-None Headache: 0-None Present CIWA-Ar Total Score: 3 Assessment Plan - Diagnosis (1) Acute hypoxemic respiratory failure Status: Acute (2) Alcohol dependence with uncomplicated withdrawal Status: Acute (3) Cocaine abuse Status: Acute (4) Elevated liver enzymes Status: Acute (5) Intoxication Status: Acute (6) Nicotine dependence Status: Acute (7) Opioid abuse Status: Acute (8) Pneumonia Status: Acute - Plan Plan: Chart reviewed, labs and imaging reviewed. Patient examined and history taken, Called by nurse over weekend, patient appears drowsy on current methadone and librium detox regimen. Recommend: 1. Fluids, mvi, folic acid thiamine as ordered. 2. will d/c methadone detox, hold librium dose, d/c prn medications and clonidine, decrease libirum dose used for detox/taper. Patient no longer tremulous as reported by nurse prior to detox medications being administered. 3. will follow. 4, Inpatient rehab recommended, but patient needs ot return to work and is already patient at [facility] where he would like to return. Osmin Fermin MD [phone] - Medication Detox Regimen/Protocol: Librium"
[2017-10-27] MEDS ORDERED: chlordiazePOXIDE HCL 25 MG CAPSULE PO ONE (10:22)
[2017-10-27] MEDS ORDERED: chlordiazePOXIDE HCL 25 MG CAPSULE PO SCH (11:00)
[2017-10-27] MEDS ORDERED: METHADONE HCL 10 MG TABLET (FOR DETOX USE ONLY) PO ONE (11:30)
[2017-10-27] MEDS ORDERED: METHADONE HCL 10 MG TABLET PO ONE ×2 (11:30→23:00)
[2017-10-27] MEDS: SODIUM CHLORIDE 1,000 ML IV SCH (11:36)
[2017-10-27] MEDS: chlordiazePOXIDE HCL 25 MG CAPSULE PO SCH ×3 (11:37→22:06)
[2017-10-27] MEDS: cloNIDine HCL 0.1 MG TABLET PO SCH ×2 (11:39→22:02)
--- NOTE | 2017-10-27 13:34 | PN ---
Progress Note, Physician - Current Medication List Current Medications: Active Medications Albuterol Sulfate (Ventolin 0.083% Nebulizer Soln -) 1 amp NEB Q4H PRN PRN Reason: SHORT OF BREATH/WHEEZING Chlordiazepoxide HCl (Librium -) 50 mg PO [id number] [facility] Stop: 10/28/17 05:01 Last Admin: 10/27/17 11:37 Dose: 50 mg Chlordiazepoxide HCl (Librium -) 25 mg PO [id number] [facility] Stop: 10/29/17 05:01 Chlordiazepoxide HCl (Librium -) 15 mg PO [id number] [facility] Stop: 10/30/17 05:01 Chlordiazepoxide HCl (Librium -) 25 mg PO Q4H PRN PRN Reason: WITHDRAWAL(CONT SUBST) Stop: 10/30/17 10:25 Clonidine (Catapres -) 0.1 mg PO BID [facility] Last Admin: 10/27/17 11:39 Dose: 0.1 mg Heparin Sodium (Porcine) (Heparin -) 5,000 unit SQ TID [facility] Last Admin: 10/27/17 05:51 Dose: 5,000 unit Sodium Chloride (Normal Saline -) 1,000 mls @ 100 mls/hr IV ASDIR [facility] Last Admin: 10/27/17 11:36 Dose: 100 mls/hr Azithromycin 500 mg/ Dextrose 250 mls @ 250 mls/hr IVPB DAILY [facility] CEFTRIAXONE IN IS-OSM DEXTROSE (Ceftriaxone 2 Gm-D5w Bag) 2 gm in 50 mls @ 100 mls/hr IVPB DAILY [facility] Methadone HCl (Dolophine -) 10 mg PO ONCE@2300 ONE Stop: 10/27/17 23:01 Methadone HCl (Dolophine -) 5 mg PO DAILY@0600 [facility] Stop: 11/01/17 06:01 Methadone HCl (Dolophine -) 15 mg PO DAILY [facility] Stop: 10/30/17 10:01 Methadone HCl (Dolophine -) 10 mg PO DAILY [facility] Stop: 10/31/17 10:01 Methadone HCl (Dolophine -) 20 mg PO DAILY [facility] Stop: 10/28/17 10:01 Multivit/Folic Acid/Iron ( Vitamins (Sjr) -) 1 tab PO DAILY [facility] Thiamine HCl (Vitamin B1 -) 100 mg PO [facility] - Objective Vital Signs: Vital Signs Temperature 98.5 F 10/27/17 06:00 Pulse Rate 118 H 10/27/17 06:00 Respiratory Rate 20 10/27/17 06:00 Blood Pressure 142/92 10/27/17 06:00 O2 Sat by Pulse Oximetry (%) 95 10/27/17 05:18 Cardiovascular: Yes: Regular Rate and Rhythm Respiratory: Yes: Rhonchi Gastrointestinal: Yes: Normal Bowel Sounds, Soft Labs: CBC, BMP 10/27/17 06:00 10/27/17 06:00 Assessment/Plan #Acute Hypoxic Respiratory failure -likely secondary to drug overdose and superimposed CAP -02 sat in the mid 80's on arrival, 97% on non-rebreather -pulmonary consult -Cont. IV abx -Cont. Duonebs -Cont. O2 -Maintain O2 sat >90% #Alcohol intoxication -CIWA 2 -Alcohol Level 123 -No withrdrawals at this time -Monitor for signs of withdrawal -Librium protocol -Banana bag #Polysubstance abuse -Cocaine, heroine, suboxone -consulted [facility] -counseling for cessation #Elevated LFT's -liver U/S--fatty liver -gi consult -follow up AM labs #Laceration of forehead -s/p mechanical fall after alcohol intoxication -Tetanus shot given in the ED -Head CT: negative for Bleed or shift, (official read pending) #FEN -NS @ 100 NS, 1x Banana bag -WNL -Regular diet #DVT -Hep SQ
--- NOTE | 2017-10-27 14:41 | PN ---
Progress Note (short form) - Note Progress Note: PULMONARY CONSULTATION DICTATED 10/27/17 IMP ACUTE HYPOXEMIC RESPIRATORY FAILURE S/P SYNCOPE SECONDARY TO ETOH,NARCOTICS LIKELY ASPIRATION PNEUMONIA ETOH ABUSE LIKELY OSAS TOBACCO ABUSE PLAN O2 ANTIBIOTICS F/U CHEST X-RAY INHALED BRONCHODILATORS DETOX PROTOCOL LIBRIUM,THIAMINE SLEEP STUDIES OUTPATIENT SMOKING CESSATION COUNSELED Problem List - Problems (1) Acute hypoxemic respiratory failure Code(s): J96.01 - ACUTE RESPIRATORY FAILURE WITH HYPOXIA (2) Pneumonia Code(s): J18.9 - PNEUMONIA, UNSPECIFIED ORGANISM (3) ETOH abuse Code(s): F10.10 - ALCOHOL ABUSE, UNCOMPLICATED (4) Syncope and collapse Code(s): R55 - SYNCOPE AND COLLAPSE (5) Laceration Code(s): T14.8 - OTHER INJURY OF UNSPECIFIED BODY REGION * DO NOT USE * (6) Tobacco abuse Code(s): Z72.0 - TOBACCO USE (7) Tobacco abuse counseling Code(s): Z71.6 - TOBACCO ABUSE COUNSELING
--- NOTE | 2017-10-27 15:22 | CON.GI ---
Consult Consult Specialty:: GI: Dr. Pavan Reyes (Dr. Madalyn Jones) Referred by:: Dr. Fiorella Ruffin Reason for Consultation:: Abnormal LFT's - History of Present Illness Chief Complaint: Patient found: s/p fall in shower after ingestion of unprescribed percocet x 2, alcohol, unprescribed suboxone and cocaine 2 days ago History of Present Illness: 52M BIBEMS after patient's found him passed put in the shower yesterday evening. He says that due to pain from recent dental work, he took unprescribed percocet x 2, 1.5 pints of vodka, unprescribed suboxone yesterday and cocaine 2 days ago. describes him gurgling when she found him with his face appearing purple with purple fingers. There was no vomitus. Asked to evaluate improving transaminitis. He denies any abdominal pain. On admission CPK was elevated as well. He denies IVDU. He thinks he may have been tested for infectious hepatitis in the past but is unsure. He drinks 1 pint of vodka daily for multiple years and denies h/o blood trnsfusions. There is no family history of liver disease. His maternal Grandfather had colon cancer in his 60' s and Mr. Ellis describes being told of colitis from a colonoscopy biopsy in 1990. he is not on standing medications for IBD and denies rectal bleeding, change in bowel habits, rectal bleeding, melena. Abdominal US on admission revealed fatty liver. 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 opiates, intranasal cocaine) - Past Surgical History Past Surgical History: Yes: None - Alcohol/Substance Use Hx Alcohol Use: Yes (1 pint vodka daily) History of Substance Use: reports: Cocaine, Prescription (opiates) - Smoking History Smoking history: Current every day smoker Have you smoked in the past 12 months: Yes Aproximately how many cigarettes per day: 20 - Social History Usual Living Arrangement: With Spouse (common law ) ADL: Independent Occupation: Works in [employer] Place of : [facility] History of Recent Travel: No Home Medications - Allergies Allergies/Adverse Reactions: Allergies Allergy/AdvReac Type Severity Reaction Status Date / Time shellfish derived Allergy Verified 11/24/13 14:27 - Home Medications Home Medications: Ambulatory Orders No Home Medications 0 dose .ROUTE UTDICT 12/31/12 Family Disease History - Family Disease History Family Disease History: Other: Father ( in pt. childhood. unclear age or cause), Mother (: 65 PNA), Brother (2, healthy), Sister (1, healthy), Son ( None), Daughter (None) Other Family History: Maternal GF with colon cancer age 62. No family history of liver disease Review of Systems - Review of Systems Constitutional: reports: Unintentional Wgt. Loss. denies: Chills Cardiovascular: denies: Chest Pain Respiratory: reports: SOB Gastrointestinal: denies: Abdominal Pain, Diarrhea, Dysphagia, Melena, Nausea, Rectal Bleeding, Vomiting, Vomiting Blood Physical Exam-GI Vital Signs: Vital Signs Temperature 98.5 F 10/27/17 15:05 Pulse Rate 108 H 10/27/17 15:05 Respiratory Rate 20 10/27/17 15:05 Blood Pressure 142/92 10/27/17 06:00 O2 Sat by Pulse Oximetry (%) 95 10/27/17 05:18 Constitutional: Yes: Calm Eyes: No: Sclera Icterus Cardiovascular: Yes: Regular Rate and Rhythm Respiratory: Yes: CTA Bilaterally, Wheezes (mild exp wheezing L>R) Gastrointestinal Inspection: Yes: Scars (right flank/lower abdomen (childhood injury)). No: Distention ...Auscultate: Yes: Normoactive Bowel Sounds ...Palpate: No: Hepatomegaly, Soft, Splenomegaly, Tenderness ...Percussion: No: Tympanitic Edema: No (No LE edema) Neurological: Yes: Alert, Oriented Labs: CBC, BMP 10/27/17 06:00 10/27/17 06:00 Imaging - Results Ultrasound: Report Reviewed Problem List - Problems (1) Transaminitis Assessment/Plan: Isolated transaminitis: Suspect multifactorial including recent alcohol ingestion, ? component of hypoxia given description of presentation, medication induced and component of rhabdomyolysis given CPK elevation and description of presentation Advise: Avoidance of hepatotoxic agents Monitor liver chemistries Screening for infectious hepatitis: Hepatitis A/B panel, hepatitis C antibody Outpatient follow-up for further liver work-up pending the above Outpatient follow-up to discuss age appropriate screening colonoscopy Advised complete alcohol abstinence as well as cessation of his prescription/ illicit drug use Eval of hematuria/proteinuria per PMD Code(s): R74.0 - NONSPEC ELEV OF LEVELS OF TRANSAMNS & LACTIC ACID DEHYDRGNSE
[2017-10-27] MEDS: THIAMINE HCL 100 MG TABLET (FP) PO SCH (22:02)
[2017-10-28] MEDS: SODIUM CHLORIDE 1,000 ML IV SCH ×3 (01:00→11:55)
[2017-10-28] MEDS: chlordiazePOXIDE HCL 25 MG CAPSULE PO SCH (05:58)
[2017-10-28] MEDS: HEPARIN NA (PORCINE) 5,000 UNITS/ML 1ML VIAL SQ SCH ×3 (05:58→22:18)
--- NOTE | 2017-10-28 07:29 | CONS ---
DATE OF CONSULTATION: 10/27/2017 PULMONARY CONSULTATION REFERRING PHYSICIAN: Fiorella Ruffin M.D. HISTORY OF PRESENT ILLNESS: The patient is A 52-year-old white male with a past medical history of colitis, status post colectomy in 1989; history of tobacco use, 1 pack per day since age 14, currently still smoking; ethanol abuse. He was admitted to [facility] status post syncopal episode. According to the patient's partner, the patient returned home from work intoxicated. He apparently had a tooth extracted recently. Apparently he had pain secondary to the extraction and took some old Percocet. He also was drinking excessively. The patient's partner heard a gurgling sound. When she went to open the bathroom door, she found the patient unconscious and cyanotic in the upper and lower extremities. EMS was called, and the patient was given 0.4 mg of Narcan, with good response. The patient denied any fever or chills. He denied any chest pain or palpitations prior to this episode. According to the patient's partner, he has a history of excessive snoring and has witnessed apneic episodes, although he has never been tested for sleep apnea. He denies a history of occupational exposure to chemicals or fumes. There is no history of DVT or PE in the past. There is no history of recent travel. The patient also apparently hit his head and was bleeding from his forehead at the time of the incident. PAST MEDICAL HISTORY: Again includes colitis, status post colon surgery in 1989. SOCIAL HISTORY: History of tobacco use, 1 pack per day since age 14, currently still smoking. Positive ethanol. REVIEW OF SYSTEMS: No orthopnea. No PND. No chest pain. No palpitations at this time. No cough. No hemoptysis. No fevers. No chills. Positive nausea and vomiting x1. CURRENT MEDICATIONS: Zithromax, heparin, Librium, albuterol, Catapres, ceftriaxone, methadone. LABORATORY STUDIES: WBC 25.3, hemoglobin 15.4, hematocrit 7.4; platelet count 284,000. Chemistries: BUN 17, creatinine 0.9. AST 95, ALT 103. MB fraction 4.11. CK index 1.2. Troponin less than Toxicology screen positive for alcohol 123.9, also positive for cocaine as well as opiates. PHYSICAL EXAMINATION: General: The patient is a well-developed, well-nourished male, awake, alert, currently in no acute distress. Vitals: He is currently afebrile. Blood pressure 142/92, respiratory rate 20. O2 saturation 96% on 2 L nasal cannula. HEENT: Normocephalic, atraumatic. Neck: Supple. Heart: Regular S1, S2. Chest: A few crackles on the left. Abdomen: Soft. Bowel sounds are positive. Extremities: No cyanosis or edema. DIAGNOSTIC STUDIES: Chest x-ray reveals congestive changes, poor inspiratory effort, mild congestion, and increased markings on the left lung field. IMPRESSION: 1. Acute hypoxemia. 2. Respiratory failure secondary to problem 1. 3. Drug overdose, which includes opiates, ethanol as well as cocaine. 4. Likely aspiration pneumonia. 5. Ethanol withdrawal, ethanol abuse. 6. Tobacco abuse. PLAN: Continue antibiotic therapy. Obtain a follow-up chest x-ray. Supplemental oxygen, inhaled bronchodilators. Agree with Librium. Detox consultation. DEYANIRA NAZARIO M.D. [id number]
[2017-10-28 08:04] LABS: ALBUMIN 3.5 g/dl (3.4-5.0)
[2017-10-28 08:10] LABS: BILIRUBIN,DIRECT 0.3 mg/dL (0.0-0.2); BILIRUBIN,TOTAL 0.8 mg/dL (0.2-1.0); TOT PROT 6.5 g/dl (6.4-8.2)
[2017-10-28] MEDS ORDERED: PIPERACILLIN/TAZOB 4.5 GM/100 ML PRE-DOCKED IVPB SCH (09:00)
--- NOTE | 2017-10-28 09:00 | CON.ID ---
Consult Consult Specialty:: infectious disease Referred by:: sivakumar Reason for Consultation:: leukocytosis - History of Present Illness Chief Complaint: syncope History of Present Illness: 52 year old man admitted fo home after bieing found passed out in the shower. He had used ETOH (vodka) and percocet. No IVDU he reports one episode of vomiting after admission constipation for 2 days noted to have elevated wbc, no fevers reports 2 days of coughing prior to admission +cigarette smoker was in an accident in the fall and has lost some teeth no dental infections drinks one pint of vodka daily had a right eyebrow laceration sutured in ED question of left sided pneumonia on cxray head ct with left maxillary sinusitis with small air fluid level - History Source History Provided By: Patient, Medical Record Limitations to Obtaining History: No Limitations - Past Medical History Gastrointestinal: Yes: Other (colitis) Psych: Yes: Addictions (Alcohol, ? opiates, intranasal cocaine) - Past Surgical History Past Surgical History: Yes: Colectomy (1998) - Alcohol/Substance Use Hx Alcohol Use: Yes (1 pint vodka daily) History of Substance Use: reports: Cocaine, Prescription (opiates) - Smoking History Smoking history: Current every day smoker Have you smoked in the past 12 months: Yes Aproximately how many cigarettes per day: 20 - Social History Usual Living Arrangement: With Spouse (common law ) ADL: Independent Occupation: Works in [id number] History of Recent Travel: No Home Medications - Allergies Allergies/Adverse Reactions: Allergies Allergy/AdvReac Type Severity Reaction Status Date / Time shellfish derived Allergy Verified 11/24/13 14:27 - Home Medications Home Medications: Ambulatory Orders No Home Medications 0 dose .ROUTE UTDICT 12/31/12 Family Disease History - Family Disease History Family Disease History: Other: Father ( in pt. childhood. unclear age or cause), Mother (: 65 PNA), Brother (2, healthy), Sister (1, healthy), Son ( None), Daughter (None) Other Family History: Maternal GF with colon cancer age 62. No family history of liver disease Review of Systems - Review of Systems Constitutional: denies: Chills, Fever Eyes: reports: No Symptoms HENT: reports: No Symptoms Neck: reports: No Symptoms Cardiovascular: denies: Chest Pain Respiratory: reports: Cough Gastrointestinal: reports: No Symptoms, Constipation. denies: Abdominal Pain, Diarrhea Genitourinary: reports: No Symptoms. denies: Burning, Discharge Physical Exam Vital Signs: Vital Signs Temperature 100 F H 10/28/17 06:00 Pulse Rate 98 H 10/28/17 06:00 Respiratory Rate 20 10/28/17 06:00 Blood Pressure 120/85 10/28/17 06:00 O2 Sat by Pulse Oximetry (%) 95 10/27/17 21:00 Constitutional: Yes: Well Nourished, No Distress, Calm Eyes: Yes: Conjunctiva Clear, EOM Intact HENT: Yes: Atraumatic, Normocephalic. No: Pharyngeal Erythema, Thrush Neck: Yes: Supple, Trachea Midline Cardiovascular: Yes: Regular Rate and Rhythm Respiratory: Yes: Regular, Other (crackles right base) Gastrointestinal: Yes: Normal Bowel Sounds, Soft. No: Tenderness, Tenderness, Epigastrium ...Rectal Exam: Yes: Deferred Renal/: No: CVA Tenderness - Left, CVA Tenderness - Right Musculoskeletal: Yes: WNL Extremities: Yes: WNL Edema: No Integumentary: No: Rash Neurological: Yes: Alert, Oriented Labs: CBC, BMP 10/27/17 06:00 10/27/17 06:00 Microbiology 10/27/17 03:53 Blood - Peripheral Venous Blood Culture - Preliminary Pending Organism 10/27/17 03:53 Blood - Peripheral Venous Blood Culture - Preliminary NO GROWTH OBTAINED AFTER 24 HOURS, INCUBATION TO CONTINUE FOR 4 DAYS. Imaging - Results Chest X-ray: Report Reviewed, Image Reviewed Problem List - Problems (1) Gram-negative bacteremia Code(s): R78.81 - BACTEREMIA (2) Syncope and collapse Code(s): R55 - SYNCOPE AND COLLAPSE (3) Pneumonia Code(s): J18.9 - PNEUMONIA, UNSPECIFIED ORGANISM (4) ETOH abuse Code(s): F10.10 - ALCOHOL ABUSE, UNCOMPLICATED (5) Tobacco abuse Code(s): Z72.0 - TOBACCO USE Assessment/Plan gram negative bacteremia not sure of source ?aspiration for repeat cxray today would consider ct scan of abd/pelvis to look for source of bacteremia (prior history of colitis0 switch to zosyn f/u cultures on librium taper for ETOH use should be HIV tested- will d/w patient when is not present
[2017-10-28] MEDS ORDERED: AZITHROMYCIN IVPB 500 MG in DEXTROSE 5%-WATER - 250 ML IVPB SCH (10:00)
[2017-10-28] MEDS ORDERED: METHADONE HCL 10 MG TABLET PO SCH (10:00)
[2017-10-28] MEDS ORDERED: CEFTRIAXONE IN IS-OSM DEXTROSE 2 GM/50 ML BAG IVPB SCH (10:00)
[2017-10-28] MEDS ORDERED: CEFTRIAXONE 2 GM in DEXTROSE 5%-WATER - 100 ML IVPB SCH (10:00)
--- NOTE | 2017-10-28 10:09 | PN ---
Progress Note, Physician Chief Complaint: syncope, fall History of Present Illness: NAD, seen for detox GI for abn liver enz, elevated bilirubin -seen by ID for leukocytosis -CXR possible left infiltrate, aspiration? - Current Medication List Current Medications: Active Medications Albuterol Sulfate (Ventolin 0.083% Nebulizer Soln -) 1 amp NEB Q4H PRN PRN Reason: SHORT OF BREATH/WHEEZING Chlordiazepoxide HCl (Librium -) 25 mg PO [id number] [facility] Stop: 10/29/17 05:01 Chlordiazepoxide HCl (Librium -) 15 mg PO Q6M-UNP [facility] Stop: 10/30/17 05:01 Chlordiazepoxide HCl (Librium -) 25 mg PO Q4H PRN PRN Reason: WITHDRAWAL(CONT SUBST) Stop: 10/30/17 10:25 Clonidine (Catapres -) 0.1 mg PO BID [facility] Last Admin: 10/27/17 22:02 Dose: 0.1 mg Heparin Sodium (Porcine) (Heparin -) 5,000 unit SQ TID [facility] Last Admin: 10/28/17 05:58 Dose: 5,000 unit Sodium Chloride (Normal Saline -) 1,000 mls @ 100 mls/hr IV ASDIR [facility] Last Admin: 10/28/17 01:00 Dose: 100 mls/hr Piperacillin Sod/Tazobactam (Sod 4.5 gm/ Dextrose) 100 mls @ 200 mls/hr IVPB Q8H-IV [facility] Vancomycin HCl 1,000 mg/ (Dextrose) 250 mls @ 250 mls/hr IVPB BID [facility] PRN Reason: Protocol Methadone HCl (Dolophine -) 5 mg PO DAILY@0600 [facility] Stop: 11/01/17 06:01 Methadone HCl (Dolophine -) 15 mg PO DAILY [facility] Stop: 10/30/17 10:01 Methadone HCl (Dolophine -) 10 mg PO DAILY [facility] Stop: 10/31/17 10:01 Multivit/Folic Acid/Iron ( Vitamins (Sjr) -) 1 tab PO DAILY [facility] Thiamine HCl (Vitamin B1 -) 100 mg PO HS [facility] Last Admin: 10/27/17 22:02 Dose: 100 mg - Objective Vital Signs: Vital Signs Temperature 100 F H 10/28/17 06:00 Pulse Rate 98 H 10/28/17 06:00 Respiratory Rate 20 10/28/17 06:00 Blood Pressure 120/85 10/28/17 06:00 O2 Sat by Pulse Oximetry (%) 95 10/27/17 21:00 Constitutional: Yes: Well Nourished, No Distress, Calm Cardiovascular: Yes: Regular Rate and Rhythm Respiratory: Yes: Regular Gastrointestinal: Yes: Normal Bowel Sounds Musculoskeletal: Yes: WNL Extremities: Yes: WNL Edema: No Peripheral Pulses WNL: Yes Integumentary: Yes: Laceration (right brow) Neurological: Yes: Alert, Oriented Psychiatric: Yes: Alert, Oriented Labs: CBC, BMP 10/27/17 06:00 10/27/17 06:00 Problem List - Problems (1) ETOH abuse Assessment/Plan: -Detox -on methadone,librium,thiamine, multivitamin Code(s): F10.10 - ALCOHOL ABUSE, UNCOMPLICATED (2) Pneumonia Assessment/Plan: -seen by ID -IV abx -repeat cxr in AM Code(s): J18.9 - PNEUMONIA, UNSPECIFIED ORGANISM (3) Transaminitis Assessment/Plan: -seen by GI -monitor bili and liver enz -U/S abd reviewed Code(s): R74.0 - NONSPEC ELEV OF LEVELS OF TRANSAMNS & LACTIC ACID DEHYDRGNSE (4) Laceration Assessment/Plan: -sutures Code(s): T14.8 - OTHER INJURY OF UNSPECIFIED BODY REGION * DO NOT USE * Assessment/Plan see problem list
[2017-10-28] MEDS ORDERED: chlordiazePOXIDE HCL 25 MG CAPSULE PO SCH ×2 (11:00)
[2017-10-28] MEDS: VANCOMYCIN 1,000 MG in DEXTROSE 5%-WATER - 250 ML IVPB SCH ×2 (11:55→22:19)
[2017-10-28] MEDS: PRENATAL VITAMINS W/ FOLIC ACID TABLET (FP) PO SCH (11:55)
--- NOTE | 2017-10-28 14:59 | PN ---
Progress Note, Physician History of Present Illness: pulmonary alert,no distress,-sob,mild cough - Current Medication List Current Medications: Active Medications Albuterol Sulfate (Ventolin 0.083% Nebulizer Soln -) 1 amp NEB Q4H PRN PRN Reason: SHORT OF BREATH/WHEEZING Chlordiazepoxide HCl (Librium -) 15 mg PO [id number] [facility] Stop: 10/29/17 05:01 Chlordiazepoxide HCl (Librium -) 10 mg PO [id number] [facility] Stop: 10/30/17 05:01 Heparin Sodium (Porcine) (Heparin -) 5,000 unit SQ TID [facility] Last Admin: 10/28/17 05:58 Dose: 5,000 unit Sodium Chloride (Normal Saline -) 1,000 mls @ 100 mls/hr IV ASDIR [facility] Last Admin: 10/28/17 11:55 Dose: 100 mls/hr Piperacillin Sod/Tazobactam (Sod 4.5 gm/ Dextrose) 100 mls @ 200 mls/hr IVPB Q8H-IV [facility] Vancomycin HCl 1,000 mg/ (Dextrose) 250 mls @ 166.667 mls/hr IVPB BID [facility] PRN Reason: Protocol Last Admin: 10/28/17 11:55 Dose: 166.667 mls/hr Multivit/Folic Acid/Iron ( Vitamins (Sjr) -) 1 tab PO DAILY [facility] Last Admin: 10/28/17 11:55 Dose: 1 tab Thiamine HCl (Vitamin B1 -) 100 mg PO HS [facility] Last Admin: 10/27/17 22:02 Dose: 100 mg - Objective Vital Signs: Vital Signs Temperature 99.9 F H 10/28/17 11:52 Pulse Rate 91 H 10/28/17 11:52 Respiratory Rate 18 10/28/17 11:52 Blood Pressure 123/71 10/28/17 11:52 O2 Sat by Pulse Oximetry (%) 95 10/27/17 21:00 Constitutional: Yes: Well Nourished, Calm Eyes: Yes: WNL HENT: Yes: WNL Neck: Yes: WNL Cardiovascular: Yes: Regular Rate and Rhythm, S1, S2 Respiratory: Yes: Rhonchi (scattered enrique rhonchi) Gastrointestinal: Yes: Normal Bowel Sounds, Soft Extremities: Yes: WNL Edema: No Labs: CBC, BMP 10/27/17 06:00 02/10/18 06:00 - ....Imaging Chest X-ray: Report Reviewed, Image Reviewed (improving infiltrates) Problem List - Problems (1) Acute hypoxemic respiratory failure Code(s): J96.01 - ACUTE RESPIRATORY FAILURE WITH HYPOXIA (2) Pneumonia Code(s): J18.9 - PNEUMONIA, UNSPECIFIED ORGANISM (3) ETOH abuse Code(s): F10.10 - ALCOHOL ABUSE, UNCOMPLICATED (4) Syncope and collapse Code(s): R55 - SYNCOPE AND COLLAPSE (5) Laceration Code(s): T14.8 - OTHER INJURY OF UNSPECIFIED BODY REGION * DO NOT USE * (6) Tobacco abuse Code(s): Z72.0 - TOBACCO USE (7) Tobacco abuse counseling Code(s): Z71.6 - TOBACCO ABUSE COUNSELING Assessment/Plan IMP ACUTE HYPOXEMIC RESPIRATORY FAILURE IMPROVED S/P SYNCOPE SECONDARY TO ETOH,NARCOTICS LIKELY ASPIRATION PNEUMONIA ETOH ABUSE LIKELY OSAS TOBACCO ABUSE PLAN O2 ANTIBIOTICS PER ID F/U CHEST X-RAY INHALED BRONCHODILATORS DETOX PROTOCOL LIBRIUM,THIAMINE SLEEP STUDIES OUTPATIENT SMOKING CESSATION COUNSELED Problem List - Problems (1) Acute hypoxemic respiratory failure Code(s): J96.01 - ACUTE RESPIRATORY FAILURE WITH HYPOXIA (2) Pneumonia Code(s): J18.9 - PNEUMONIA, UNSPECIFIED ORGANISM (3) ETOH abuse Code(s): F10.10 - ALCOHOL ABUSE, UNCOMPLICATED (4) Syncope and collapse Code(s): R55 - SYNCOPE AND COLLAPSE (5) Laceration Code(s): T14.8 - OTHER INJURY OF UNSPECIFIED BODY REGION * DO NOT USE * (6) Tobacco abuse Code(s): Z72.0 - TOBACCO USE (7) Tobacco abuse counseling Code(s): Z71.6 - TOBACCO ABUSE COUNSELING
[2017-10-28] MEDS ORDERED: PT OWN MED DRAWER 7, Y5N ONE ×2 (15:25→20:31)
[2017-10-28] MEDS: cloNIDine HCL 0.1 MG TABLET PO SCH (15:34)
[2017-10-28] MEDS: PIPERACILLIN/TAZOB 4.5 GM 4.5 GM in DEXTROSE 5%-WATER - 100 ML IVPB SCH ×2 (18:05→18:07)
[2017-10-28] MEDS: chlordiazePOXIDE 5 MG CAPSULE PO SCH ×3 (18:09→23:26)
[2017-10-28] MEDS: ALBUTEROL SO4 2.5/IPRATROPIUM 0.5 INH SOL 3 ML VIAL.NEB. NEB SCH (21:10)
[2017-10-28] MEDS: THIAMINE HCL 100 MG TABLET (FP) PO SCH (22:19)
[2017-10-29] MEDS: PIPERACILLIN/TAZOB 4.5 GM 4.5 GM in DEXTROSE 5%-WATER - 100 ML IVPB SCH ×3 (01:57→17:53)
[2017-10-29] MEDS: chlordiazePOXIDE 5 MG CAPSULE PO SCH ×4 (06:17→23:09)
[2017-10-29] MEDS: HEPARIN NA (PORCINE) 5,000 UNITS/ML 1ML VIAL SQ SCH ×3 (06:17→21:45)
[2017-10-29] MEDS: SODIUM CHLORIDE 1,000 ML IV SCH ×3 (06:21→21:39)
[2017-10-29] MEDS: ALBUTEROL SO4 2.5/IPRATROPIUM 0.5 INH SOL 3 ML VIAL.NEB. NEB SCH ×4 (07:15→21:09)
[2017-10-29 07:20] LABS: HEMATOCRIT 38.6 % (35.4-49); HEMOGLOBIN 12.8 GM/dL (11.7-16.9); MCH 31.8 pg (25.7-33.7); MCHC 33.1 g/dl (32.0-35.9); MEAN PLT VOLUME 8.7 fl (7.5-11.1); PLATELET COUNT 191 K/MM3 (134-434); RBC 4.03 M/mm3 (4.00-5.60); RDW 12.6 % (11.9-15.9); WHITE BLOOD COUNT 11.3 K/mm3 (4.0-10.0)
[2017-10-29 07:37] LABS: ALK PHOS 96 U/L (45-117); ANION GAP 7 (8-16); BILIRUBIN,TOTAL 1.6 mg/dL (0.2-1.0); BLOOD UREA NITROGEN 8 mg/dL (7-18); CALCIUM 8.4 mg/dL (8.5-10.1); CHLORIDE 102 mmol/L (98-107); CO2 30 mmol/L (21-32); CREATININE 0.6 mg/dL (0.7-1.3); GLUCOSE,RANDOM 113 mg/dL (74-106); SGOT/AST 53 U/L (15-37); SGPT/ALT 68 U/L (12-78); SODIUM 139 mmol/L (136-145); TOT PROT 6.3 g/dl (6.4-8.2)
[2017-10-29] MEDS ORDERED: PT OWN MED DRAWER 7, Y5N ONE ×2 (08:53→17:49)
[2017-10-29] MEDS: PRENATAL VITAMINS W/ FOLIC ACID TABLET (FP) PO SCH (08:59)
[2017-10-29] MEDS: VANCOMYCIN 1,000 MG in DEXTROSE 5%-WATER - 250 ML IVPB SCH ×2 (09:28→21:45)
[2017-10-29] MEDS ORDERED: METHADONE HCL 5 MG TABLET PO SCH (10:00)
--- NOTE | 2017-10-29 10:35 | PN ---
Progress Note (short form) - Note Progress Note: awake and alert today he was quite sleepy yesterday reports dental work multiple extractions about 2 weeks ago- took amox at the time Vital Signs Period Temp Pulse Resp BP Sys/Bautista Pulse Ox Last 24 Hr 97.8 F-100.1 F 85-94 18-20 123-142/68-85 cor-rrr lungs scattred rhonchi abd soft,nt ext no edema CBC, BMP 10/29/17 06:30 10/29/17 06:30 Microbiology 10/27/17 03:53 Blood - Peripheral Venous Blood Culture - Preliminary Staphylococcus Coagulase Neg 10/27/17 03:53 Blood - Peripheral Venous Blood Culture - Preliminary Gram Negative Dwight a/p gram negative bacteremia- ? aspiration pneumonia, ?gi source ct scans pending suspect SCN in blood is contaminant repeat blood cultures before vancomycin sent continue vanco/zosyn f/u cultures etoh use syncope Problem List - Problems (1) Gram-negative bacteremia Code(s): R78.81 - BACTEREMIA (2) Syncope and collapse Code(s): R55 - SYNCOPE AND COLLAPSE (3) Pneumonia Code(s): J18.9 - PNEUMONIA, UNSPECIFIED ORGANISM (4) ETOH abuse Code(s): F10.10 - ALCOHOL ABUSE, UNCOMPLICATED (5) Tobacco abuse Code(s): Z72.0 - TOBACCO USE
[2017-10-29] MEDS ORDERED: chlordiazePOXIDE 5 MG CAPSULE PO SCH ×2 (11:00)
--- NOTE | 2017-10-29 11:11 | PN ---
Progress Note, Physician Chief Complaint: syncope, fall History of Present Illness: NAD, alert and awake, just returned from [place] self ambulatory states he does not take illicit drugs. he had tooth pain so he took percocet, cocaine and subaxone given by his friend. seen by Dr Fermin CT chest confirms PNE seen by ID already on IV abx- responding well. - Current Medication List Current Medications: Active Medications Albuterol Sulfate (Ventolin 0.083% Nebulizer Soln -) 1 amp NEB Q4H PRN PRN Reason: SHORT OF BREATH/WHEEZING Albuterol/Ipratropium (Duoneb -) 1 amp NEB RQID [facility] Last Admin: 10/29/17 07:15 Dose: 1 amp Chlordiazepoxide HCl (Librium -) 10 mg PO [id number] [facility] Stop: 10/30/17 05:01 Heparin Sodium (Porcine) (Heparin -) 5,000 unit SQ TID [facility] Last Admin: 10/29/17 06:17 Dose: 5,000 unit Sodium Chloride (Normal Saline -) 1,000 mls @ 100 mls/hr IV ASDIR [facility] Last Admin: 10/29/17 08:59 Dose: Not Given Piperacillin Sod/Tazobactam (Sod 4.5 gm/ Dextrose) 100 mls @ 200 mls/hr IVPB Q8H-IV [facility] Last Admin: 10/29/17 08:59 Dose: 200 mls/hr Vancomycin HCl 1,000 mg/ (Dextrose) 250 mls @ 166.667 mls/hr IVPB BID [facility] PRN Reason: Protocol Last Admin: 10/29/17 09:28 Dose: 166.667 mls/hr Multivit/Folic Acid/Iron ( Vitamins (Sjr) -) 1 tab PO DAILY [facility] Last Admin: 10/29/17 08:59 Dose: 1 tab Thiamine HCl (Vitamin B1 -) 100 mg PO HS [facility] Last Admin: 10/28/17 22:19 Dose: 100 mg - Objective Vital Signs: Vital Signs Temperature 99.1 F 10/29/17 05:00 Pulse Rate 87 10/29/17 05:00 Respiratory Rate 20 10/29/17 05:00 Blood Pressure 134/68 10/29/17 05:00 O2 Sat by Pulse Oximetry (%) 95 10/27/17 21:00 Constitutional: Yes: Well Nourished, No Distress, Calm Cardiovascular: Yes: Regular Rate and Rhythm Respiratory: Yes: Regular Gastrointestinal: Yes: Normal Bowel Sounds, Soft Musculoskeletal: Yes: WNL Extremities: Yes: WNL Edema: No Peripheral Pulses WNL: Yes Neurological: Yes: Alert, Oriented Psychiatric: Yes: Alert, Oriented Labs: CBC, BMP 10/29/17 06:30 10/29/17 06:30 Problem List - Problems (1) ETOH abuse Assessment/Plan: -Detox -on methadone,librium,thiamine, multivitamin -recheck blood alcohol level, Nursing staff smells alcohol around him Code(s): F10.10 - ALCOHOL ABUSE, UNCOMPLICATED (2) Pneumonia Assessment/Plan: -seen by ID -IV abx -confirmed by CT chest -WBC decreasing Code(s): J18.9 - PNEUMONIA, UNSPECIFIED ORGANISM (3) Transaminitis Assessment/Plan: -seen by GI -monitor bili and liver enz -U/S abd reviewed -CT abd/pelvis reviewed -outpatient colonoscopy Code(s): R74.0 - NONSPEC ELEV OF LEVELS OF TRANSAMNS & LACTIC ACID DEHYDRGNSE (4) Laceration Assessment/Plan: -sutures Code(s): T14.8 - OTHER INJURY OF UNSPECIFIED BODY REGION * DO NOT USE * Assessment/Plan see problem list
--- NOTE | 2017-10-29 11:30 | PN ---
Progress Note, Physician History of Present Illness: No events. Comfortable. Tolerating diet. Asymptomatic. Awake and alert - Current Medication List Current Medications: Active Medications Albuterol Sulfate (Ventolin 0.083% Nebulizer Soln -) 1 amp NEB Q4H PRN PRN Reason: SHORT OF BREATH/WHEEZING Albuterol/Ipratropium (Duoneb -) 1 amp NEB RQID [facility] Last Admin: 10/29/17 07:15 Dose: 1 amp Chlordiazepoxide HCl (Librium -) 10 mg PO [id number] [facility] Stop: 10/30/17 05:01 Heparin Sodium (Porcine) (Heparin -) 5,000 unit SQ TID [facility] Last Admin: 10/29/17 06:17 Dose: 5,000 unit Sodium Chloride (Normal Saline -) 1,000 mls @ 100 mls/hr IV ASDIR [facility] Last Admin: 10/29/17 08:59 Dose: Not Given Piperacillin Sod/Tazobactam (Sod 4.5 gm/ Dextrose) 100 mls @ 200 mls/hr IVPB Q8H-IV [facility] Last Admin: 10/29/17 08:59 Dose: 200 mls/hr Vancomycin HCl 1,000 mg/ (Dextrose) 250 mls @ 166.667 mls/hr IVPB BID [facility] PRN Reason: Protocol Last Admin: 10/29/17 09:28 Dose: 166.667 mls/hr Multivit/Folic Acid/Iron ( Vitamins (Sjr) -) 1 tab PO DAILY [facility] Last Admin: 10/29/17 08:59 Dose: 1 tab Thiamine HCl (Vitamin B1 -) 100 mg PO HS [facility] Last Admin: 10/28/17 22:19 Dose: 100 mg - Objective Vital Signs: Vital Signs Temperature 99.1 F 10/29/17 05:00 Pulse Rate 87 10/29/17 05:00 Respiratory Rate 20 10/29/17 05:00 Blood Pressure 134/68 10/29/17 05:00 O2 Sat by Pulse Oximetry (%) 95 10/27/17 21:00 Constitutional: Yes: Well Nourished, No Distress, Calm Eyes: Yes: Conjunctiva Clear HENT: Yes: Atraumatic Neck: Yes: Supple Cardiovascular: Yes: Regular Rate and Rhythm Respiratory: Yes: Regular Gastrointestinal: Yes: Normal Bowel Sounds, Soft. No: Ascites, Distention, Tenderness Neurological: Yes: Alert, Oriented. No: Asterixis, Lethargy, Tremors Labs: CBC, BMP 10/29/17 06:30 10/29/17 06:30 CBCD WBC 11.3 K/mm3 (4.0-10.0) H D 10/29/17 06:30 RBC 4.03 M/mm3 (4.00-5.60) 10/29/17 06:30 Hgb 12.8 GM/dL (11.7-16.9) D 10/29/17 06:30 Hct 38.6 % (35.4-49) D 10/29/17 06:30 MCV 96.0 fl (80-96) 10/29/17 06:30 MCHC 33.1 g/dl (32.0-35.9) 10/29/17 06:30 RDW 12.6 % (11.9-15.9) 10/29/17 06:30 Plt Count 191 K/MM3 (134-434) D 10/29/17 06:30 MPV 8.7 fl (7.5-11.1) 10/29/17 06:30 CMP Sodium 139 mmol/L (136-145) 10/29/17 06:30 Potassium 4.0 mmol/L (3.5-5.1) 10/29/17 06:30 Chloride 102 mmol/L (98-107) 10/29/17 06:30 Carbon Dioxide 30 mmol/L (21-32) 10/29/17 06:30 Anion Gap 7 (8-16) L 10/29/17 06:30 BUN 8 mg/dL (7-18) D 10/29/17 06:30 Creatinine 0.6 mg/dL (0.7-1.3) L D 10/29/17 06:30 Creat Clearance w eGFR > 60 (>60) 10/29/17 06:30 Calcium 8.4 mg/dL (8.5-10.1) L 10/29/17 06:30 Total Bilirubin 1.6 mg/dL (0.2-1.0) H D 10/29/17 06:30 AST 53 U/L (15-37) H D 10/29/17 06:30 ALT 68 U/L (12-78) D 10/29/17 06:30 Alkaline Phosphatase 96 U/L (45-117) D 10/29/17 06:30 Total Protein 6.3 g/dl (6.4-8.2) L 10/29/17 06:30 Albumin 3.0 g/dl (3.4-5.0) L 10/29/17 06:30 - ....Imaging Cat Scan: Report Reviewed Ultrasound: Report Reviewed Problem List - Problems (1) Elevated liver enzymes Code(s): R74.8 - ABNORMAL LEVELS OF OTHER SERUM ENZYMES (2) Acute hypoxemic respiratory failure Code(s): J96.01 - ACUTE RESPIRATORY FAILURE WITH HYPOXIA (3) ETOH abuse Code(s): F10.10 - ALCOHOL ABUSE, UNCOMPLICATED (4) Intoxication Code(s): [id number] - (5) Pneumonia Code(s): J18.9 - PNEUMONIA, UNSPECIFIED ORGANISM Assessment/Plan A 52 yom with abnormal liver enzymes, hepatocellular patern, on admission in settings of altered mental status and history of alcohol abuse. Mild cholestasis as AST elevation still present. Normla PLT. ? PT PT/INR Direct bili CMP Will need outpatient-based screening colonoscopy
--- NOTE | 2017-10-29 11:50 | PN ---
Progress Note (short form) - Note Progress Note: Feels overall better. Some mild residual cough. No acute events overnight. Intake & Output 10/26/17 10/27/17 10/28/17 10/29/17 23:59 23:59 23:59 23:59 Intake Total 800 1750 1590 Balance 800 1750 1590 Weight 177 lb 3 oz Last Vital Signs Temp Pulse Resp BP Pulse Ox 98.3 F 86 20 119/74 95 10/29/17 09:00 10/29/17 09:00 10/29/17 09:00 10/29/17 09:00 10/27/17 21:00 Active Medications Albuterol Sulfate (Ventolin 0.083% Nebulizer Soln -) 1 amp NEB Q4H PRN PRN Reason: SHORT OF BREATH/WHEEZING Albuterol/Ipratropium (Duoneb -) 1 amp NEB RQID [facility] Last Admin: 10/29/17 11:38 Dose: 1 amp Chlordiazepoxide HCl (Librium -) 10 mg PO [id number] [facility] Stop: 10/30/17 05:01 Heparin Sodium (Porcine) (Heparin -) 5,000 unit SQ TID [facility] Last Admin: 10/29/17 06:17 Dose: 5,000 unit Sodium Chloride (Normal Saline -) 1,000 mls @ 100 mls/hr IV ASDIR [facility] Last Admin: 10/29/17 08:59 Dose: Not Given Piperacillin Sod/Tazobactam (Sod 4.5 gm/ Dextrose) 100 mls @ 200 mls/hr IVPB Q8H-IV [facility] Last Admin: 10/29/17 08:59 Dose: 200 mls/hr Vancomycin HCl 1,000 mg/ (Dextrose) 250 mls @ 166.667 mls/hr IVPB BID [facility] PRN Reason: Protocol Last Admin: 10/29/17 09:28 Dose: 166.667 mls/hr Multivit/Folic Acid/Iron ( Vitamins (Sjr) -) 1 tab PO DAILY [facility] Last Admin: 10/29/17 08:59 Dose: 1 tab Thiamine HCl (Vitamin B1 -) 100 mg PO HS [facility] Last Admin: 10/28/17 22:19 Dose: 100 mg Constitutional: Yes: NAD Eyes: Yes: WNL HENT: Yes: WNL Neck: Yes: WNL Cardiovascular: Yes: Regular Rate and Rhythm, S1, S2 Respiratory: Yes: Scattered Rhonchi Gastrointestinal: Yes: Normal Bowel Sounds, Soft Extremities: Yes: WNL Edema: No Labs: Laboratory Results - last 24 hr 10/29/17 10/29/17 10/29/17 06:30 06:30 11:25 WBC 11.3 H D RBC 4.03 Hgb 12.8 D Hct 38.6 D MCV 96.0 MCH 31.8 MCHC 33.1 RDW 12.6 Plt Count 191 D MPV 8.7 Sodium 139 Potassium 4.0 Chloride 102 Carbon Dioxide 30 Anion Gap 7 L BUN 8 D Creatinine 0.6 L D Creat Clearance w eGFR > 60 POC Glucometer 133 Random Glucose 113 H Calcium 8.4 L Total Bilirubin 1.6 H D AST 53 H D ALT 68 D Alkaline Phosphatase 96 D Total Protein 6.3 L Albumin 3.0 L Problem List - Problems (1) Acute hypoxemic respiratory failure Code(s): J96.01 - ACUTE RESPIRATORY FAILURE WITH HYPOXIA (2) Pneumonia Code(s): J18.9 - PNEUMONIA, UNSPECIFIED ORGANISM (3) ETOH abuse Code(s): F10.10 - ALCOHOL ABUSE, UNCOMPLICATED (4) Syncope and collapse Code(s): R55 - SYNCOPE AND COLLAPSE (5) Laceration Code(s): T14.8 - OTHER INJURY OF UNSPECIFIED BODY REGION * DO NOT USE * (6) Tobacco abuse Code(s): Z72.0 - TOBACCO USE (7) Tobacco abuse counseling Code(s): Z71.6 - TOBACCO ABUSE COUNSELING Assessment/Plan IMP ACUTE HYPOXEMIC RESPIRATORY FAILURE IMPROVED S/P SYNCOPE SECONDARY TO ETOH,NARCOTICS LIKELY ASPIRATION PNEUMONIA ETOH ABUSE LIKELY OSAS TOBACCO ABUSE PLAN O2 ANTIBIOTICS PER ID INHALED BRONCHODILATORS DETOX PROTOCOL LIBRIUM,THIAMINE SLEEP STUDIES OUTPATIENT SMOKING CESSATION COUNSELED DR VILLARREAL
[2017-10-29] MEDS ORDERED: NICOTINE POLACRILEX 4 MG GUM BUC PRN (12:13)
[2017-10-29 14:17] LABS: HBSAG SCREEN Negative (Negative); HEP B CORE AB, TOT Negative (Negative)
[2017-10-29] MEDS: NICOTINE 21 MG/24 HOURS TOPICAL PATCH TD SCH (15:12)
[2017-10-29 16:41] LABS: URINE APPEARANCE CLEAR; URINE BILIRUBIN NEGATIVE (NEGATIVE); URINE BLOOD NEGATIVE (NEGATIVE); URINE COLOR LTYELLOW; URINE GLUCOSE (UA) NEGATIVE (NEGATIVE); URINE KETONE NEGATIVE (NEGATIVE); URINE LEUK ESTERASE TRACE (NEGATIVE); URINE NITRITE NEGATIVE (NEGATIVE); URINE PROTEIN NEGATIVE (NEGATIVE); URINE UROBILINOGEN NEGATIVE mg/dL (0.2-1.0)
[2017-10-29 17:00] LABS: EPI CELLS RARE /HPF (FEW); URINE MUCUS RARE
[2017-10-29 17:03] LABS: COCAINE, UR NEGATIVE ng/ml (CUTOFF=300); METHADONE, UR NEGATIVE ng/ml (CUTOFF=300); OPIATES, URI NEGATIVE ng/ml (CUTOFF=300); PHENCYCLIDINE,URINE NEGATIVE ng/ml (CUTOFF=25); URINE AMPHETAMINES NEGATIVE ng/ml (CUTOFF=500); URINE BARBITURATES NEGATIVE ng/ml (CUTOFF=200)
[2017-10-29 17:04] LABS: URINE BENZODIAZEPINES POSITIVE ng/ml (CUTOFF=200)
[2017-10-29] MEDS: THIAMINE HCL 100 MG TABLET (FP) PO SCH (21:45)
[2017-10-30] MEDS: PIPERACILLIN/TAZOB 4.5 GM 4.5 GM in DEXTROSE 5%-WATER - 100 ML IVPB SCH ×3 (02:20→18:13)
[2017-10-30] MEDS: HEPARIN NA (PORCINE) 5,000 UNITS/ML 1ML VIAL SQ SCH ×3 (05:21→21:24)
[2017-10-30] MEDS: chlordiazePOXIDE 5 MG CAPSULE PO SCH (05:21)
[2017-10-30 07:29] LABS: BASO % 0.7 % (0-2.0); EOS % 2.1 % (0-4.5); HEMATOCRIT 39.4 % (35.4-49); HEMOGLOBIN 13.4 GM/dL (11.7-16.9); LYMPH % 19.8 % (8-40); MCHC 33.9 g/dl (32.0-35.9); MEAN CELL VOLUME 94.4 fl (80-96); MEAN PLT VOLUME 8.3 fl (7.5-11.1); NEUT % 64.4 % (42.8-82.8); PLATELET COUNT 216 K/MM3 (134-434); RBC 4.17 M/mm3 (4.00-5.60); RDW 12.6 % (11.9-15.9); WHITE BLOOD COUNT 9.4 K/mm3 (4.0-10.0)
[2017-10-30 07:57] LABS: ALBUMIN 2.8 g/dl (3.4-5.0); ANION GAP 8 (8-16); BILIRUBIN,DIRECT 0.5 mg/dL (0.0-0.2); BLOOD UREA NITROGEN 8 mg/dL (7-18); CALCIUM 8.8 mg/dL (8.5-10.1); CHLORIDE 104 mmol/L (98-107); CO2 30 mmol/L (21-32); CREATININE 0.6 mg/dL (0.7-1.3); GLUCOSE,RANDOM 107 mg/dL (74-106); POTASSIUM 3.7 mmol/L (3.5-5.1); SGOT/AST 34 U/L (15-37); SGPT/ALT 66 U/L (12-78); SODIUM 142 mmol/L (136-145)
[2017-10-30 07:58] LABS: ALK PHOS 109 U/L (45-117); BILIRUBIN,TOTAL 1.1 mg/dL (0.2-1.0); TOT PROT 6.3 g/dl (6.4-8.2)
[2017-10-30 08:14] LABS: INR 1.05 (0.82-1.09); PROTHROMBIN TIME (PATIENT) 11.9 SEC (9.98-11.88)
[2017-10-30] MEDS: ALBUTEROL SO4 2.5/IPRATROPIUM 0.5 INH SOL 3 ML VIAL.NEB. NEB SCH ×5 (08:50→21:40)
[2017-10-30] MEDS ORDERED: PT OWN MED DRAWER 7, Y5N ONE ×2 (09:48→18:05)
[2017-10-30] MEDS: NICOTINE 21 MG/24 HOURS TOPICAL PATCH TD SCH (09:50)
[2017-10-30] MEDS: PRENATAL VITAMINS W/ FOLIC ACID TABLET (FP) PO SCH (09:50)
[2017-10-30] MEDS: SODIUM CHLORIDE 1,000 ML IV SCH (09:51)
--- NOTE | 2017-10-30 10:36 | PN ---
Progress Note, Physician Chief Complaint: syncope, fall History of Present Illness: NAD, alert and awake, just returned from Echo self ambulatory - Current Medication List Current Medications: Active Medications Albuterol Sulfate (Ventolin 0.083% Nebulizer Soln -) 1 amp NEB Q4H PRN PRN Reason: SHORT OF BREATH/WHEEZING Last Admin: 10/30/17 06:02 Dose: 1 amp Albuterol/Ipratropium (Duoneb -) 1 amp NEB RQID [facility] Last Admin: 10/30/17 08:50 Dose: 1 amp Heparin Sodium (Porcine) (Heparin -) 5,000 unit SQ TID [facility] Last Admin: 10/30/17 05:21 Dose: 5,000 unit Sodium Chloride (Normal Saline -) 1,000 mls @ 100 mls/hr IV ASDIR [facility] Last Admin: 10/30/17 09:51 Dose: Not Given Piperacillin Sod/Tazobactam (Sod 4.5 gm/ Dextrose) 100 mls @ 200 mls/hr IVPB Q8H-IV [facility] Last Admin: 10/30/17 09:50 Dose: 200 mls/hr Vancomycin HCl 1,000 mg/ (Dextrose) 250 mls @ 166.667 mls/hr IVPB BID [facility] PRN Reason: Protocol Last Admin: 10/29/17 21:45 Dose: 166.667 mls/hr Nicotine (Nicoderm Patch -) 21 mg TD DAILY [facility] Last Admin: 10/30/17 09:50 Dose: 21 mg Nicotine Polacrilex (Nicorette Gum -) 4 mg BUC Q2H PRN PRN Reason: NICOTINE REPLACEMENT RX Multivit/Folic Acid/Iron ( Vitamins (Sjr) -) 1 tab PO DAILY [facility] Last Admin: 10/30/17 09:50 Dose: 1 tab Thiamine HCl (Vitamin B1 -) 100 mg PO HS [facility] Last Admin: 10/29/17 21:45 Dose: 100 mg - Objective Vital Signs: Vital Signs Temperature 98.9 F 10/30/17 05:37 Pulse Rate 87 10/30/17 05:37 Respiratory Rate 18 10/30/17 05:37 Blood Pressure 135/79 10/30/17 05:37 O2 Sat by Pulse Oximetry (%) 97 10/29/17 20:22 Constitutional: Yes: Well Nourished, No Distress, Calm Cardiovascular: Yes: Regular Rate and Rhythm Respiratory: Yes: Regular Labs: CBC, BMP 10/30/17 06:00 10/30/17 06:00 INR, PTT INR 1.05 (0.82-1.09) 10/30/17 06:00 Problem List - Problems (1) ETOH abuse Assessment/Plan: -Detox -on methadone,librium,thiamine, multivitamin Code(s): F10.10 - ALCOHOL ABUSE, UNCOMPLICATED (2) Pneumonia Assessment/Plan: -seen by ID -IV abx -confirmed by CT chest Code(s): J18.9 - PNEUMONIA, UNSPECIFIED ORGANISM (3) Transaminitis Assessment/Plan: -seen by GI -monitor bili and liver enz -U/S abd reviewed -CT abd/pelvis reviewed -outpatient colonoscopy Code(s): R74.0 - NONSPEC ELEV OF LEVELS OF TRANSAMNS & LACTIC ACID DEHYDRGNSE (4) Laceration Assessment/Plan: -sutures Code(s): T14.8 - OTHER INJURY OF UNSPECIFIED BODY REGION * DO NOT USE * Assessment/Plan see problem list
[2017-10-30] MEDS: VANCOMYCIN 1,000 MG in DEXTROSE 5%-WATER - 250 ML IVPB SCH (10:39)
--- NOTE | 2017-10-30 11:05 | PN ---
Progress Note, Physician History of Present Illness: No events. Comfortable. Tolerating diet. Asymptomatic. Liver chem improved - Current Medication List Current Medications: Active Medications Albuterol Sulfate (Ventolin 0.083% Nebulizer Soln -) 1 amp NEB Q4H PRN PRN Reason: SHORT OF BREATH/WHEEZING Last Admin: 10/30/17 06:02 Dose: 1 amp Albuterol/Ipratropium (Duoneb -) 1 amp NEB RQID [facility] Last Admin: 10/30/17 08:50 Dose: 1 amp Heparin Sodium (Porcine) (Heparin -) 5,000 unit SQ TID [facility] Last Admin: 10/30/17 05:21 Dose: 5,000 unit Sodium Chloride (Normal Saline -) 1,000 mls @ 100 mls/hr IV ASDIR [facility] Last Admin: 10/30/17 09:51 Dose: Not Given Piperacillin Sod/Tazobactam (Sod 4.5 gm/ Dextrose) 100 mls @ 200 mls/hr IVPB Q8H-IV [facility] Last Admin: 10/30/17 09:50 Dose: 200 mls/hr Vancomycin HCl 1,000 mg/ (Dextrose) 250 mls @ 166.667 mls/hr IVPB BID [facility] PRN Reason: Protocol Last Admin: 10/30/17 10:39 Dose: 166.667 mls/hr Nicotine (Nicoderm Patch -) 21 mg TD DAILY [facility] Last Admin: 10/30/17 09:50 Dose: 21 mg Nicotine Polacrilex (Nicorette Gum -) 4 mg BUC Q2H PRN PRN Reason: NICOTINE REPLACEMENT RX Multivit/Folic Acid/Iron ( Vitamins (Sjr) -) 1 tab PO DAILY [facility] Last Admin: 10/30/17 09:50 Dose: 1 tab Thiamine HCl (Vitamin B1 -) 100 mg PO HS [facility] Last Admin: 10/29/17 21:45 Dose: 100 mg - Objective Vital Signs: Vital Signs Temperature 98.9 F 10/30/17 05:37 Pulse Rate 87 10/30/17 05:37 Respiratory Rate 18 10/30/17 05:37 Blood Pressure 135/79 10/30/17 05:37 O2 Sat by Pulse Oximetry (%) 97 10/29/17 20:22 Constitutional: Yes: No Distress, Calm Eyes: Yes: Conjunctiva Clear Labs: CBC, BMP 10/30/17 06:00 10/30/17 06:00 INR, PTT INR 1.05 (0.82-1.09) 10/30/17 06:00 CBCD WBC 9.4 K/mm3 (4.0-10.0) 10/30/17 06:00 RBC 4.17 M/mm3 (4.00-5.60) 10/30/17 06:00 Hgb 13.4 GM/dL (11.7-16.9) 10/30/17 06:00 Hct 39.4 % (35.4-49) 10/30/17 06:00 MCV 94.4 fl (80-96) 10/30/17 06:00 MCHC 33.9 g/dl (32.0-35.9) 10/30/17 06:00 RDW 12.6 % (11.9-15.9) 10/30/17 06:00 Plt Count 216 K/MM3 (134-434) 10/30/17 06:00 MPV 8.3 fl (7.5-11.1) 10/30/17 06:00 CMP Sodium 142 mmol/L (136-145) 10/30/17 06:00 Potassium 3.7 mmol/L (3.5-5.1) 10/30/17 06:00 Chloride 104 mmol/L (98-107) 10/30/17 06:00 Carbon Dioxide 30 mmol/L (21-32) 10/30/17 06:00 Anion Gap 8 (8-16) 10/30/17 06:00 BUN 8 mg/dL (7-18) 10/30/17 06:00 Creatinine 0.6 mg/dL (0.7-1.3) L 10/30/17 06:00 Creat Clearance w eGFR > 60 (>60) 10/30/17 06:00 Calcium 8.8 mg/dL (8.5-10.1) 10/30/17 06:00 Total Bilirubin 1.1 mg/dL (0.2-1.0) H D 10/30/17 06:00 AST 34 U/L (15-37) D 10/30/17 06:00 ALT 66 U/L (12-78) 10/30/17 06:00 Alkaline Phosphatase 109 U/L (45-117) 10/30/17 06:00 Total Protein 6.3 g/dl (6.4-8.2) L 10/30/17 06:00 Albumin 2.8 g/dl (3.4-5.0) L 10/30/17 06:00 Problem List - Problems (1) Elevated liver enzymes Code(s): R74.8 - ABNORMAL LEVELS OF OTHER SERUM ENZYMES (2) Acute hypoxemic respiratory failure Code(s): J96.01 - ACUTE RESPIRATORY FAILURE WITH HYPOXIA (3) ETOH abuse Code(s): F10.10 - ALCOHOL ABUSE, UNCOMPLICATED (4) Intoxication Code(s): [id number] - (5) Pneumonia Code(s): J18.9 - PNEUMONIA, UNSPECIFIED ORGANISM Assessment/Plan Counceling PT/INR Direct bili CMP Will need outpatient-based screening colonoscopy
--- NOTE | 2017-10-30 12:03 | PN ---
Progress Note (short form) - Note Progress Note: Appears overall better. No CP or SOB. No acute events overnight. Intake & Output 10/27/17 10/28/17 10/29/17 10/30/17 23:59 23:59 23:59 23:59 Intake Total 800 1750 3020 650 Balance 800 1750 3020 650 Weight 177 lb 3 oz Last Vital Signs Temp Pulse Resp BP Pulse Ox 98.9 F 87 18 135/79 97 10/30/17 05:37 10/30/17 05:37 10/30/17 05:37 10/30/17 05:37 10/29/17 20:22 Active Medications Albuterol Sulfate (Ventolin 0.083% Nebulizer Soln -) 1 amp NEB Q4H PRN PRN Reason: SHORT OF BREATH/WHEEZING Last Admin: 10/30/17 06:02 Dose: 1 amp Albuterol/Ipratropium (Duoneb -) 1 amp NEB RQID [facility] Last Admin: 10/30/17 08:50 Dose: 1 amp Heparin Sodium (Porcine) (Heparin -) 5,000 unit SQ TID [facility] Last Admin: 10/30/17 05:21 Dose: 5,000 unit Sodium Chloride (Normal Saline -) 1,000 mls @ 100 mls/hr IV ASDIR [facility] Last Admin: 10/30/17 09:51 Dose: Not Given Piperacillin Sod/Tazobactam (Sod 4.5 gm/ Dextrose) 100 mls @ 200 mls/hr IVPB Q8H-IV [facility] Last Admin: 10/30/17 09:50 Dose: 200 mls/hr Vancomycin HCl 1,000 mg/ (Dextrose) 250 mls @ 166.667 mls/hr IVPB BID [facility] PRN Reason: Protocol Last Admin: 10/30/17 10:39 Dose: 166.667 mls/hr Nicotine (Nicoderm Patch -) 21 mg TD DAILY [facility] Last Admin: 10/30/17 09:50 Dose: 21 mg Nicotine Polacrilex (Nicorette Gum -) 4 mg BUC Q2H PRN PRN Reason: NICOTINE REPLACEMENT RX Multivit/Folic Acid/Iron ( Vitamins (Sjr) -) 1 tab PO DAILY [facility] Last Admin: 10/30/17 09:50 Dose: 1 tab Thiamine HCl (Vitamin B1 -) 100 mg PO HS [facility] Last Admin: 10/29/17 21:45 Dose: 100 mg Constitutional: Yes: NAD Eyes: Yes: WNL HENT: Yes: WNL Neck: Yes: WNL Cardiovascular: Yes: Regular Rate and Rhythm, S1, S2 Respiratory: Yes: Few scattered Rhonchi Gastrointestinal: Yes: Normal Bowel Sounds, Soft Extremities: Yes: WNL Edema: No Labs: Laboratory Results - last 24 hr 10/27/17 10/28/17 10/29/17 16:10 06:00 11:35 WBC RBC Hgb Hct MCV MCH MCHC RDW Plt Count MPV Neutrophils % Lymphocytes % Monocytes % Eosinophils % Basophils % PT with INR INR Sodium Potassium Chloride Carbon Dioxide Anion Gap BUN Creatinine Creat Clearance w eGFR Random Glucose Calcium Total Bilirubin Direct Bilirubin AST ALT Alkaline Phosphatase Total Protein Albumin Urine Color Urine Appearance Urine pH Ur Specific Vestal Urine Protein Urine Glucose (UA) Urine Ketones Urine Blood Urine Nitrite Urine Bilirubin Urine Urobilinogen Ur Leukocyte Esterase Urine WBC (Auto) Urine RBC (Auto) Ur Epithelial Cells Urine Mucus Opiates Screen Methadone Screen Barbiturate Screen Phencyclidine Screen Ur Amphetamines Screen MDMA (Ecstasy) Screen Benzodiazepines Screen Cocaine Screen U Marijuana (THC) Screen Alcohol, Quantitative < 5.0 Hepatitis A Ab Total Negative Hep Bs Antigen Negative Hep Bs Antibody Non reactive Hep B Core Total Ab Negative Hepatitis C Antibody 0.1 10/29/17 10/29/17 10/30/17 16:00 16:00 06:00 WBC 9.4 RBC 4.17 Hgb 13.4 Hct 39.4 MCV 94.4 MCH 32.0 MCHC 33.9 RDW 12.6 Plt Count 216 MPV 8.3 Neutrophils % 64.4 Lymphocytes % 19.8 D Monocytes % 13.0 H Eosinophils % 2.1 Basophils % 0.7 PT with INR INR Sodium Potassium Chloride Carbon Dioxide Anion Gap BUN Creatinine Creat Clearance w eGFR Random Glucose Calcium Total Bilirubin Direct Bilirubin AST ALT Alkaline Phosphatase Total Protein Albumin Urine Color Ltyellow Urine Appearance Clear Urine pH 7.0 D Ur Specific Vestal 1.006 Urine Protein Negative Urine Glucose (UA) Negative Urine Ketones Negative Urine Blood Negative Urine Nitrite Negative Urine Bilirubin Negative Urine Urobilinogen Negative Ur Leukocyte Esterase Trace Urine WBC (Auto) 6 Urine RBC (Auto) <1 Ur Epithelial Cells Rare Urine Mucus Rare Opiates Screen Negative Methadone Screen Negative Barbiturate Screen Negative Phencyclidine Screen Negative Ur Amphetamines Screen Negative MDMA (Ecstasy) Screen Negative Benzodiazepines Screen Positive Cocaine Screen Negative U Marijuana (THC) Screen Negative Alcohol, Quantitative Hepatitis A Ab Total Hep Bs Antigen Hep Bs Antibody Hep B Core Total Ab Hepatitis C Antibody 10/30/17 10/30/17 06:00 06:00 WBC RBC Hgb Hct MCV MCH MCHC RDW Plt Count MPV Neutrophils % Lymphocytes % Monocytes % Eosinophils % Basophils % PT with INR 11.90 H INR 1.05 Sodium 142 Potassium 3.7 Chloride 104 Carbon Dioxide 30 Anion Gap 8 BUN 8 Creatinine 0.6 L Creat Clearance w eGFR > 60 Random Glucose 107 H Calcium 8.8 Total Bilirubin 1.1 H D Direct Bilirubin 0.5 H D AST 34 D ALT 66 Alkaline Phosphatase 109 Total Protein 6.3 L Albumin 2.8 L Urine Color Urine Appearance Urine pH Ur Specific Vestal Urine Protein Urine Glucose (UA) Urine Ketones Urine Blood Urine Nitrite Urine Bilirubin Urine Urobilinogen Ur Leukocyte Esterase Urine WBC (Auto) Urine RBC (Auto) Ur Epithelial Cells Urine Mucus Opiates Screen Methadone Screen Barbiturate Screen Phencyclidine Screen Ur Amphetamines Screen MDMA (Ecstasy) Screen Benzodiazepines Screen Cocaine Screen U Marijuana (THC) Screen Alcohol, Quantitative Hepatitis A Ab Total Hep Bs Antigen Hep Bs Antibody Hep B Core Total Ab Hepatitis C Antibody Problem List - Problems (1) Acute hypoxemic respiratory failure Code(s): J96.01 - ACUTE RESPIRATORY FAILURE WITH HYPOXIA (2) Pneumonia Code(s): J18.9 - PNEUMONIA, UNSPECIFIED ORGANISM (3) ETOH abuse Code(s): F10.10 - ALCOHOL ABUSE, UNCOMPLICATED (4) Syncope and collapse Code(s): R55 - SYNCOPE AND COLLAPSE (5) Laceration Code(s): T14.8 - OTHER INJURY OF UNSPECIFIED BODY REGION * DO NOT USE * (6) Tobacco abuse Code(s): Z72.0 - TOBACCO USE (7) Tobacco abuse counseling Code(s): Z71.6 - TOBACCO ABUSE COUNSELING Assessment/Plan IMP ACUTE HYPOXEMIC RESPIRATORY FAILURE IMPROVED S/P SYNCOPE SECONDARY TO ETOH,NARCOTICS LIKELY ASPIRATION PNEUMONIA ETOH ABUSE LIKELY OSAS TOBACCO ABUSE PLAN O2 ANTIBIOTICS PER ID INHALED BRONCHODILATORS DETOX PROTOCOL LIBRIUM,THIAMINE SLEEP STUDIES OUTPATIENT SMOKING CESSATION COUNSELED DR VILLARREAL
--- NOTE | 2017-10-30 15:35 | PN ---
Progress Note (short form) - Note Progress Note: awake and alert today no complaints Vital Signs Period Temp Pulse Resp BP Sys/Bautista Pulse Ox Last 24 Hr 97.9 F-98.9 F 85-93 18-20 128-138/72-85 97 cor-rrr lungs decreased bs at bases, scattered rhonchi abd soft,nt ext no edema chest ct- bilateral patchy infiltrates CBC, BMP 10/30/17 06:00 10/30/17 06:00 Microbiology 10/29/17 01:05 Urine - Urine Clean Catch Urine Culture - Final NO GROWTH OBTAINED 10/28/17 11:00 Blood - Peripheral Venous Blood Culture - Preliminary NO GROWTH OBTAINED AFTER 48 HOURS, INCUBATION TO CONTINUE FOR 3 DAYS. 10/28/17 10:25 Blood - Peripheral Venous Blood Culture - Preliminary NO GROWTH OBTAINED AFTER 48 HOURS, INCUBATION TO CONTINUE FOR 3 DAYS. 10/27/17 03:53 Blood - Peripheral Venous Blood Culture - Preliminary Flavobacterium Meningosepticum 10/27/17 03:53 Blood - Peripheral Venous Blood Culture - Final Staphylococcus Epidermidis 10/27/17 11:57 Urine For Antigen Detection Legionella Antigen - Final 10/27/17 11:57 Urine For Antigen Detection Streptococcus pneumoniae Antigen (M - Final Active Medications Albuterol Sulfate (Ventolin 0.083% Nebulizer Soln -) 1 amp NEB Q4H PRN PRN Reason: SHORT OF BREATH/WHEEZING Last Admin: 10/30/17 06:02 Dose: 1 amp Albuterol/Ipratropium (Duoneb -) 1 amp NEB RQID [facility] Last Admin: 10/30/17 12:15 Dose: Not Given Heparin Sodium (Porcine) (Heparin -) 5,000 unit SQ TID [facility] Last Admin: 10/30/17 05:21 Dose: 5,000 unit Piperacillin Sod/Tazobactam (Sod 4.5 gm/ Dextrose) 100 mls @ 200 mls/hr IVPB Q8H-IV [facility] Last Admin: 10/30/17 09:50 Dose: 200 mls/hr Vancomycin HCl 1,000 mg/ (Dextrose) 250 mls @ 166.667 mls/hr IVPB BID [facility] PRN Reason: Protocol Last Admin: 10/30/17 10:39 Dose: 166.667 mls/hr Nicotine (Nicoderm Patch -) 21 mg TD DAILY [facility] Last Admin: 10/30/17 09:50 Dose: 21 mg Nicotine Polacrilex (Nicorette Gum -) 4 mg BUC Q2H PRN PRN Reason: NICOTINE REPLACEMENT RX Multivit/Folic Acid/Iron ( Vitamins (Sjr) -) 1 tab PO DAILY [facility] Last Admin: 10/30/17 09:50 Dose: 1 tab Thiamine HCl (Vitamin B1 -) 100 mg PO HS [facility] Last Admin: 10/29/17 21:45 Dose: 100 mg a/p gram negative bacteremia- suspected aspiration pneumonia suspect Staph epi in blood is contaminant- will d/c vancomycin etoh use-detox syncope continue zosyn d/c vancomycin Problem List - Problems (1) Gram-negative bacteremia Code(s): R78.81 - BACTEREMIA (2) Syncope and collapse Code(s): R55 - SYNCOPE AND COLLAPSE (3) Pneumonia Code(s): J18.9 - PNEUMONIA, UNSPECIFIED ORGANISM (4) ETOH abuse Code(s): F10.10 - ALCOHOL ABUSE, UNCOMPLICATED (5) Tobacco abuse Code(s): Z72.0 - TOBACCO USE
--- NOTE | 2017-10-30 17:24 | PN ---
[facility] Progress Note (SOAP) Subjective: still lethargic, completed detox yesterday no confusion or withdrawal Objective: 10/30/17 17:23 Vital Signs - 24 hr 10/29/17 10/29/17 10/29/17 18:00 20:22 21:45 Temperature 98.3 F 98.7 F Pulse Rate 93 H 92 H Respiratory 18 18 Rate Blood Pressure 130/76 138/72 O2 Sat by Pulse 97 Oximetry (%) 10/30/17 10/30/17 05:37 13:37 Temperature 98.9 F 97.9 F Pulse Rate 87 85 Respiratory 18 20 Rate Blood Pressure 135/79 128/85 O2 Sat by Pulse Oximetry (%) Laboratory Tests 10/27/17 10/27/17 10/27/17 00:42 00:42 00:50 WBC RBC Hgb Hct MCV MCH MCHC RDW Plt Count MPV Neutrophils % Lymphocytes % Monocytes % Eosinophils % Basophils % PT with INR INR Sodium Potassium Chloride Carbon Dioxide Anion Gap BUN Creatinine Creat Clearance w eGFR POC Glucometer Random Glucose Calcium Phosphorus Magnesium Total Bilirubin Direct Bilirubin AST ALT Alkaline Phosphatase Creatine Kinase Creatine Kinase Index CK-MB (CK-2) Troponin I Total Protein Albumin Urine Color Yellow Urine Appearance Slcloudy Urine pH 5.0 Ur Specific [place] 1.017 Urine Protein 3+ H Urine Glucose (UA) 1+ H Urine Ketones Negative Urine Blood Negative Urine Nitrite Negative Urine Bilirubin Negative Urine Urobilinogen Negative Ur Leukocyte Esterase Negative Urine WBC (Auto) 10 Urine RBC (Auto) 7 Ur Epithelial Cells Few Hyaline Casts 3 Urine Mucus Rare Opiates Screen Positive Methadone Screen Negative Acetaminophen Barbiturate Screen Negative Phencyclidine Screen Negative Ur Amphetamines Screen Negative MDMA (Ecstasy) Screen Negative Benzodiazepines Screen Negative Cocaine Screen Positive U Marijuana (THC) Screen Negative Alcohol, Quantitative 123.9 H* Hepatitis A Ab Total Hep Bs Antigen Hep Bs Antibody Hep B Core Total Ab Hepatitis C Antibody 10/27/17 10/27/17 10/27/17 00:50 00:50 00:50 WBC 16.1 H RBC 4.83 Hgb 15.5 Hct 45.9 MCV 95.0 MCH 32.0 MCHC 33.7 RDW 13.3 Plt Count 302 MPV 8.0 Neutrophils % 55.1 Lymphocytes % 35.6 Monocytes % 7.3 Eosinophils % 1.4 Basophils % 0.6 PT with INR INR Sodium 140 Potassium 3.5 Chloride 104 Carbon Dioxide 24 Anion Gap 12 BUN 16 Creatinine 0.8 Creat Clearance w eGFR > 60 POC Glucometer Random Glucose 192 H Calcium 8.5 Phosphorus 5.1 H Magnesium 2.0 Total Bilirubin 0.6 Direct Bilirubin AST 148 H ALT 111 H Alkaline Phosphatase 98 Creatine Kinase 333 H Creatine Kinase Index 1.2 CK-MB (CK-2) 4.117 H Troponin I < 0.02 Total Protein 7.7 Albumin 4.3 Urine Color Urine Appearance Urine pH Ur Specific [place] Urine Protein Urine Glucose (UA) Urine Ketones Urine Blood Urine Nitrite Urine Bilirubin Urine Urobilinogen Ur Leukocyte Esterase Urine WBC (Auto) Urine RBC (Auto) Ur Epithelial Cells Hyaline Casts Urine Mucus Opiates Screen Methadone Screen Acetaminophen Barbiturate Screen Phencyclidine Screen Ur Amphetamines Screen MDMA (Ecstasy) Screen Benzodiazepines Screen Cocaine Screen U Marijuana (THC) Screen Alcohol, Quantitative Hepatitis A Ab Total Hep Bs Antigen Hep Bs Antibody Hep B Core Total Ab Hepatitis C Antibody 10/27/17 10/27/17 10/27/17 01:42 06:00 06:00 WBC 25.3 H D RBC 4.90 Hgb 15.4 Hct 47.4 MCV 96.8 H MCH 31.4 MCHC 32.5 RDW 13.2 Plt Count 284 MPV 8.7 Neutrophils % Lymphocytes % Monocytes % Eosinophils % Basophils % PT with INR INR Sodium 140 Potassium 4.4 D Chloride 103 Carbon Dioxide 26 Anion Gap 11 BUN 17 Creatinine 0.9 Creat Clearance w eGFR > 60 POC Glucometer Random Glucose 96 D Calcium 8.5 Phosphorus Magnesium Total Bilirubin 0.5 Direct Bilirubin AST 95 H D ALT 103 H Alkaline Phosphatase 98 Creatine Kinase Creatine Kinase Index CK-MB (CK-2) Troponin I Total Protein 8.1 Albumin 4.5 Urine Color Urine Appearance Urine pH Ur Specific [place] Urine Protein Urine Glucose (UA) Urine Ketones Urine Blood Urine Nitrite Urine Bilirubin Urine Urobilinogen Ur Leukocyte Esterase Urine WBC (Auto) Urine RBC (Auto) Ur Epithelial Cells Hyaline Casts Urine Mucus Opiates Screen Methadone Screen Acetaminophen < 2 L Barbiturate Screen Phencyclidine Screen Ur Amphetamines Screen MDMA (Ecstasy) Screen Benzodiazepines Screen Cocaine Screen U Marijuana (THC) Screen Alcohol, Quantitative Hepatitis A Ab Total Hep Bs Antigen Hep Bs Antibody Hep B Core Total Ab Hepatitis C Antibody 10/27/17 10/28/17 10/28/17 16:10 06:00 06:00 WBC RBC Hgb Hct MCV MCH MCHC RDW Plt Count MPV Neutrophils % Lymphocytes % Monocytes % Eosinophils % Basophils % PT with INR INR Sodium Potassium Chloride Carbon Dioxide Anion Gap BUN Creatinine Creat Clearance w eGFR POC Glucometer Random Glucose Calcium Phosphorus Magnesium Total Bilirubin 0.8 D Direct Bilirubin 0.3 H AST 30 D ALT 56 D Alkaline Phosphatase 69 D Creatine Kinase Creatine Kinase Index CK-MB (CK-2) Troponin I Total Protein 6.5 Albumin 3.5 D Urine Color Urine Appearance Urine pH Ur Specific [place] Urine Protein Urine Glucose (UA) Urine Ketones Urine Blood Urine Nitrite Urine Bilirubin Urine Urobilinogen Ur Leukocyte Esterase Urine WBC (Auto) Urine RBC (Auto) Ur Epithelial Cells Hyaline Casts Urine Mucus Opiates Screen Methadone Screen Acetaminophen Barbiturate Screen Phencyclidine Screen Ur Amphetamines Screen MDMA (Ecstasy) Screen Benzodiazepines Screen Cocaine Screen U Marijuana (THC) Screen Alcohol, Quantitative Hepatitis A Ab Total Negative Hep Bs Antigen Negative Hep Bs Antibody Non reactive Hep B Core Total Ab Negative Hepatitis C Antibody 0.1 10/29/17 10/29/17 10/29/17 06:30 06:30 11:25 WBC 11.3 H D RBC 4.03 Hgb 12.8 D Hct 38.6 D MCV 96.0 MCH 31.8 MCHC 33.1 RDW 12.6 Plt Count 191 D MPV 8.7 Neutrophils % Lymphocytes % Monocytes % Eosinophils % Basophils % PT with INR INR Sodium 139 Potassium 4.0 Chloride 102 Carbon Dioxide 30 Anion Gap 7 L BUN 8 D Creatinine 0.6 L D Creat Clearance w eGFR > 60 POC Glucometer 133 Random Glucose 113 H Calcium 8.4 L Phosphorus Magnesium Total Bilirubin 1.6 H D Direct Bilirubin AST 53 H D ALT 68 D Alkaline Phosphatase 96 D Creatine Kinase Creatine Kinase Index CK-MB (CK-2) Troponin I Total Protein 6.3 L Albumin 3.0 L Urine Color Urine Appearance Urine pH Ur Specific [place] Urine Protein Urine Glucose (UA) Urine Ketones Urine Blood Urine Nitrite Urine Bilirubin Urine Urobilinogen Ur Leukocyte Esterase Urine WBC (Auto) Urine RBC (Auto) Ur Epithelial Cells Hyaline Casts Urine Mucus Opiates Screen Methadone Screen Acetaminophen Barbiturate Screen Phencyclidine Screen Ur Amphetamines Screen MDMA (Ecstasy) Screen Benzodiazepines Screen Cocaine Screen U Marijuana (THC) Screen Alcohol, Quantitative Hepatitis A Ab Total Hep Bs Antigen Hep Bs Antibody Hep B Core Total Ab Hepatitis C Antibody 02/12/18 02/12/18 02/12/18 11:35 16:00 16:00 WBC RBC Hgb Hct MCV MCH MCHC RDW Plt Count MPV Neutrophils % Lymphocytes % Monocytes % Eosinophils % Basophils % PT with INR INR Sodium Potassium Chloride Carbon Dioxide Anion Gap BUN Creatinine Creat Clearance w eGFR POC Glucometer Random Glucose Calcium Phosphorus Magnesium Total Bilirubin Direct Bilirubin AST ALT Alkaline Phosphatase Creatine Kinase Creatine Kinase Index CK-MB (CK-2) Troponin I Total Protein Albumin Urine Color Ltyellow Urine Appearance Clear Urine pH 7.0 D Ur Specific [place] 1.006 Urine Protein Negative Urine Glucose (UA) Negative Urine Ketones Negative Urine Blood Negative Urine Nitrite Negative Urine Bilirubin Negative Urine Urobilinogen Negative Ur Leukocyte Esterase Trace Urine WBC (Auto) 6 Urine RBC (Auto) <1 Ur Epithelial Cells Rare Hyaline Casts Urine Mucus Rare Opiates Screen Negative Methadone Screen Negative Acetaminophen Barbiturate Screen Negative Phencyclidine Screen Negative Ur Amphetamines Screen Negative MDMA (Ecstasy) Screen Negative Benzodiazepines Screen Positive Cocaine Screen Negative U Marijuana (THC) Screen Negative Alcohol, Quantitative < 5.0 Hepatitis A Ab Total Hep Bs Antigen Hep Bs Antibody Hep B Core Total Ab Hepatitis C Antibody 10/30/17 10/30/17 10/30/17 06:00 06:00 06:00 WBC 9.4 RBC 4.17 Hgb 13.4 Hct 39.4 MCV 94.4 MCH 32.0 MCHC 33.9 RDW 12.6 Plt Count 216 MPV 8.3 Neutrophils % 64.4 Lymphocytes % 19.8 D Monocytes % 13.0 H Eosinophils % 2.1 Basophils % 0.7 PT with INR 11.90 H INR 1.05 Sodium 142 Potassium 3.7 Chloride 104 Carbon Dioxide 30 Anion Gap 8 BUN 8 Creatinine 0.6 L Creat Clearance w eGFR > 60 POC Glucometer Random Glucose 107 H Calcium 8.8 Phosphorus Magnesium Total Bilirubin 1.1 H D Direct Bilirubin 0.5 H D AST 34 D ALT 66 Alkaline Phosphatase 109 Creatine Kinase Creatine Kinase Index CK-MB (CK-2) Troponin I Total Protein 6.3 L Albumin 2.8 L Urine Color Urine Appearance Urine pH Ur Specific [place] Urine Protein Urine Glucose (UA) Urine Ketones Urine Blood Urine Nitrite Urine Bilirubin Urine Urobilinogen Ur Leukocyte Esterase Urine WBC (Auto) Urine RBC (Auto) Ur Epithelial Cells Hyaline Casts Urine Mucus Opiates Screen Methadone Screen Acetaminophen Barbiturate Screen Phencyclidine Screen Ur Amphetamines Screen MDMA (Ecstasy) Screen Benzodiazepines Screen Cocaine Screen U Marijuana (THC) Screen Alcohol, Quantitative Hepatitis A Ab Total Hep Bs Antigen Hep Bs Antibody Hep B Core Total Ab Hepatitis C Antibody Assessment: 10/30/17 17:23 completed detox, medically stable, f/u ne focus pateint does nto want inpatient rehab at this time becuase he needs to returnt o work. Osmin Fermin MD [phone]
[2017-10-30] MEDS: THIAMINE HCL 100 MG TABLET (FP) PO SCH (21:25)
[2017-10-31] MEDS ORDERED: PT OWN MED DRAWER 7, Y5N ONE ×3 (02:09→18:38)
[2017-10-31] MEDS: PIPERACILLIN/TAZOB 4.5 GM 4.5 GM in DEXTROSE 5%-WATER - 100 ML IVPB SCH ×3 (02:21→18:42)
[2017-10-31] MEDS: HEPARIN NA (PORCINE) 5,000 UNITS/ML 1ML VIAL SQ SCH ×3 (05:56→22:53)
[2017-10-31] MEDS: ALBUTEROL SO4 2.5/IPRATROPIUM 0.5 INH SOL 3 ML VIAL.NEB. NEB SCH ×4 (07:25→20:49)
--- NOTE | 2017-10-31 07:34 | PN ---
Progress Note, Physician - Current Medication List Current Medications: Active Medications Albuterol Sulfate (Ventolin 0.083% Nebulizer Soln -) 1 amp NEB Q4H PRN PRN Reason: SHORT OF BREATH/WHEEZING Last Admin: 10/30/17 06:02 Dose: 1 amp Albuterol/Ipratropium (Duoneb -) 1 amp NEB RQID [facility] Last Admin: 10/30/17 21:40 Dose: 1 amp Heparin Sodium (Porcine) (Heparin -) 5,000 unit SQ TID [facility] Last Admin: 10/31/17 05:56 Dose: 5,000 unit Piperacillin Sod/Tazobactam (Sod 4.5 gm/ Dextrose) 100 mls @ 200 mls/hr IVPB Q8H-IV [facility] Last Admin: 10/31/17 02:21 Dose: 200 mls/hr Nicotine (Nicoderm Patch -) 21 mg TD DAILY [facility] Last Admin: 10/30/17 09:50 Dose: 21 mg Nicotine Polacrilex (Nicorette Gum -) 4 mg BUC Q2H PRN PRN Reason: NICOTINE REPLACEMENT RX Multivit/Folic Acid/Iron ( Vitamins (Sjr) -) 1 tab PO DAILY [facility] Last Admin: 10/30/17 09:50 Dose: 1 tab Thiamine HCl (Vitamin B1 -) 100 mg PO HS [facility] Last Admin: 10/30/17 21:25 Dose: 100 mg - Objective Vital Signs: Vital Signs Temperature 98.0 F 10/31/17 06:10 Pulse Rate 94 H 10/31/17 06:10 Respiratory Rate 20 10/31/17 06:10 Blood Pressure 141/91 10/31/17 06:10 O2 Sat by Pulse Oximetry (%) 98 10/30/17 21:00 Neck: Yes: Tenderness ( over the rt nuchal) Cardiovascular: Yes: Regular Rate and Rhythm Respiratory: Yes: Regular, Rales (at the rt base) Gastrointestinal: Yes: Normal Bowel Sounds, Soft. No: Tenderness Labs: CBC, BMP 10/30/17 06:00 10/30/17 06:00 INR, PTT INR 1.05 (0.82-1.09) 10/30/17 06:00 Assessment/Plan - Problems (1) ETOH abuse Assessment/Plan: -Detox completed -on methadone,librium,thiamine, multivitamin -recheck blood alcohol level--<5, Nursing staff smells alcohol around him -outpatient program Code(s): F10.10 - ALCOHOL ABUSE, UNCOMPLICATED (2) Pneumonia Assessment/Plan: -seen by ID -IV abx per id--on zosyn -confirmed by CT chest -WBC decreasing --cxr Code(s): J18.9 - PNEUMONIA, UNSPECIFIED ORGANISM (3) Transaminitis Assessment/Plan: -seen by GI -monitor bili and liver enz -U/S abd reviewed -CT abd/pelvis reviewed -outpatient colonoscopy Code(s): R74.0 - NONSPEC ELEV OF LEVELS OF TRANSAMNS & LACTIC ACID DEHYDRGNSE (4) Laceration Assessment/Plan: -sutures Code(s): T14.8 - OTHER INJURY OF UNSPECIFIED BODY REGION * DO NOT USE *
[2017-10-31] MEDS: NICOTINE 21 MG/24 HOURS TOPICAL PATCH TD SCH (09:49)
[2017-10-31] MEDS: PRENATAL VITAMINS W/ FOLIC ACID TABLET (FP) PO SCH (09:49)
[2017-10-31] MEDS ORDERED: METHADONE HCL 10 MG TABLET PO SCH (10:00)
--- NOTE | 2017-10-31 15:01 | PN ---
Progress Note (short form) - Note Progress Note: awake and alert today no complaints returned from neck ct Vital Signs Period Temp Pulse Resp BP Sys/Bautista Pulse Ox Last 24 Hr 98.0 F-98.4 F 87-94 18-20 138-152/78-91 98 cor-rrr lungs decreased bs at bases abd soft,nt ext no edema echo normal CBC, BMP 10/30/17 06:00 10/30/17 06:00 Microbiology 10/28/17 11:00 Blood - Peripheral Venous Blood Culture - Preliminary NO GROWTH OBTAINED AFTER 72 HOURS, INCUBATION TO CONTINUE FOR 2 DAYS. 10/28/17 10:25 Blood - Peripheral Venous Blood Culture - Preliminary NO GROWTH OBTAINED AFTER 72 HOURS, INCUBATION TO CONTINUE FOR 2 DAYS. 10/29/17 01:05 Urine - Urine Clean Catch Urine Culture - Final NO GROWTH OBTAINED 10/27/17 03:53 Blood - Peripheral Venous Blood Culture - Preliminary Flavobacterium Meningosepticum 10/27/17 03:53 Blood - Peripheral Venous Blood Culture - Final Staphylococcus Epidermidis 10/27/17 11:57 Urine For Antigen Detection Legionella Antigen - Final 10/27/17 11:57 Urine For Antigen Detection Streptococcus pneumoniae Antigen (M - Final a/p simon kingei meningosepticum bacteremia-usually an environmental pathogen suspected aspiration pneumonia-patchy bilateral infiltrates on chest ct leukocytosis resolved suspect Staph epi in blood is contaminant- etoh use-detox syncope continue zosyn day #4 f/u neck ct Problem List - Problems (1) Gram-negative bacteremia Code(s): R78.81 - BACTEREMIA (2) Syncope and collapse Code(s): R55 - SYNCOPE AND COLLAPSE (3) Pneumonia Code(s): J18.9 - PNEUMONIA, UNSPECIFIED ORGANISM (4) ETOH abuse Code(s): F10.10 - ALCOHOL ABUSE, UNCOMPLICATED (5) Tobacco abuse Code(s): Z72.0 - TOBACCO USE
--- NOTE | 2017-10-31 16:32 | PN ---
Progress Note, Physician Chief Complaint: sob/cough History of Present Illness: reviewed - Current Medication List Current Medications: Active Medications Albuterol Sulfate (Ventolin 0.083% Nebulizer Soln -) 1 amp NEB Q4H PRN PRN Reason: SHORT OF BREATH/WHEEZING Last Admin: 10/30/17 06:02 Dose: 1 amp Albuterol/Ipratropium (Duoneb -) 1 amp NEB RQID [facility] Last Admin: 10/31/17 16:12 Dose: 1 amp Heparin Sodium (Porcine) (Heparin -) 5,000 unit SQ TID [facility] Last Admin: 10/31/17 14:47 Dose: 5,000 unit Piperacillin Sod/Tazobactam (Sod 4.5 gm/ Dextrose) 100 mls @ 200 mls/hr IVPB Q8H-IV [facility] Last Admin: 10/31/17 09:51 Dose: 200 mls/hr Nicotine (Nicoderm Patch -) 21 mg TD DAILY [facility] Last Admin: 10/31/17 09:49 Dose: 21 mg Nicotine Polacrilex (Nicorette Gum -) 4 mg BUC Q2H PRN PRN Reason: NICOTINE REPLACEMENT RX Multivit/Folic Acid/Iron ( Vitamins (Sjr) -) 1 tab PO DAILY [facility] Last Admin: 10/31/17 09:49 Dose: 1 tab Thiamine HCl (Vitamin B1 -) 100 mg PO HS [facility] Last Admin: 10/30/17 21:25 Dose: 100 mg - Objective Vital Signs: Vital Signs Temperature 98.0 F 10/31/17 06:10 Pulse Rate 94 H 10/31/17 06:10 Respiratory Rate 20 10/31/17 06:10 Blood Pressure 141/91 10/31/17 06:10 O2 Sat by Pulse Oximetry (%) 98 10/30/17 21:00 Constitutional: Yes: Other (resting comfortably) Eyes: Yes: EOM Intact HENT: Yes: Normocephalic Neck: Yes: Trachea Midline Cardiovascular: Yes: Regular Rate and Rhythm, S1, S2 Respiratory: Yes: Diminished Gastrointestinal: Yes: Abdomen, Obese Edema: No Neurological: Yes: Oriented Labs: CBC, BMP 10/30/17 06:00 10/30/17 06:00 INR, PTT INR 1.05 (0.82-1.09) 10/30/17 06:00 - ....Imaging Chest X-ray: Report Reviewed, Image Reviewed Cat Scan: Report Reviewed, Image Reviewed Problem List - Problems (1) Acute hypoxemic respiratory failure Code(s): J96.01 - ACUTE RESPIRATORY FAILURE WITH HYPOXIA (2) Alcohol dependence with uncomplicated withdrawal Code(s): F10.230 - ALCOHOL DEPENDENCE WITH WITHDRAWAL, UNCOMPLICATED (3) Cocaine abuse Code(s): F14.10 - COCAINE ABUSE, UNCOMPLICATED (4) ETOH abuse Code(s): F10.10 - ALCOHOL ABUSE, UNCOMPLICATED (5) Gram-negative bacteremia Code(s): R78.81 - BACTEREMIA Assessment/Plan IMP ACUTE HYPOXEMIC RESPIRATORY FAILURE S/P SYNCOPE SECONDARY TO ETOH,NARCOTICS PREDOMINANTLY LEFT SIDED ALVEOLAR INFILTRATES ETOH ABUSE LIKELY OSAS TOBACCO ABUSE PLAN O2 ANTIBIOTICS PER ID INHALED BRONCHODILATORS DETOX PROTOCOL LIBRIUM,THIAMINE SLEEP STUDIES OUTPATIENT SMOKING CESSATION Jass PAN MD
[2017-10-31] MEDS: THIAMINE HCL 100 MG TABLET (FP) PO SCH (22:53)
[2017-11-01] MEDS ORDERED: PT OWN MED DRAWER 7, Y5N ONE ×2 (02:32→09:32)
[2017-11-01] MEDS: PIPERACILLIN/TAZOB 4.5 GM 4.5 GM in DEXTROSE 5%-WATER - 100 ML IVPB SCH ×2 (02:41→10:20)
[2017-11-01] MEDS ORDERED: METHADONE HCL 5 MG TABLET PO SCH (06:00)
[2017-11-01] MEDS: HEPARIN NA (PORCINE) 5,000 UNITS/ML 1ML VIAL SQ SCH ×2 (06:04→15:11)
[2017-11-01] MEDS: ALBUTEROL SO4 2.5/IPRATROPIUM 0.5 INH SOL 3 ML VIAL.NEB. NEB SCH ×3 (08:14→15:37)
--- NOTE | 2017-11-01 08:53 | PN ---
Progress Note, Physician - Current Medication List Current Medications: Active Medications Albuterol/Ipratropium (Duoneb -) 1 amp NEB RQID [facility] Last Admin: 11/01/17 08:14 Dose: 1 amp Heparin Sodium (Porcine) (Heparin -) 5,000 unit SQ TID [facility] Last Admin: 11/01/17 06:04 Dose: 5,000 unit Piperacillin Sod/Tazobactam (Sod 4.5 gm/ Dextrose) 100 mls @ 200 mls/hr IVPB Q8H-IV [facility] Last Admin: 11/01/17 02:41 Dose: 200 mls/hr Nicotine (Nicoderm Patch -) 21 mg TD DAILY [facility] Last Admin: 10/31/17 09:49 Dose: 21 mg Nicotine Polacrilex (Nicorette Gum -) 4 mg BUC Q2H PRN PRN Reason: NICOTINE REPLACEMENT RX Multivit/Folic Acid/Iron ( Vitamins (Sjr) -) 1 tab PO DAILY [facility] Last Admin: 10/31/17 09:49 Dose: 1 tab Thiamine HCl (Vitamin B1 -) 100 mg PO HS [facility] Last Admin: 10/31/17 22:53 Dose: 100 mg - Objective Vital Signs: Vital Signs Temperature 98.1 F 11/01/17 05:58 Pulse Rate 87 11/01/17 06:16 Respiratory Rate 20 11/01/17 05:58 Blood Pressure 137/89 11/01/17 06:16 O2 Sat by Pulse Oximetry (%) 96 10/31/17 23:20 Cardiovascular: Yes: Regular Rate and Rhythm Respiratory: Yes: Regular, Rales Gastrointestinal: Yes: Normal Bowel Sounds, Soft Labs: CBC, BMP 10/30/17 06:00 10/30/17 06:00 INR, PTT INR 1.05 (0.82-1.09) 10/30/17 06:00 Assessment/Plan - Problems (1) ETOH abuse Assessment/Plan: -Detox completed -on methadone,librium,thiamine, multivitamin -recheck blood alcohol level--<5, Nursing staff smells alcohol around him -outpatient program Code(s): F10.10 - ALCOHOL ABUSE, UNCOMPLICATED (2) Pneumonia Assessment/Plan: -seen by ID -IV abx per id--on zosyn -confirmed by CT chest -WBC decreasing --cxr pending Code(s): J18.9 - PNEUMONIA, UNSPECIFIED ORGANISM (3) Transaminitis Assessment/Plan: -seen by GI -monitor bili and liver enz -U/S abd reviewed -CT abd/pelvis reviewed -outpatient colonoscopy Code(s): R74.0 - NONSPEC ELEV OF LEVELS OF TRANSAMNS & LACTIC ACID DEHYDRGNSE (4) Laceration Assessment/Plan: -sutures Code(s): T14.8 - OTHER INJURY OF UNSPECIFIED BODY REGION * DO NOT USE * (5) Lymphadenopathy Assessment/Plan: -ct pending
--- NOTE | 2017-11-01 09:41 | PN ---
Progress Note, Physician History of Present Illness: No events. Comfortable. - Current Medication List Current Medications: Active Medications Albuterol/Ipratropium (Duoneb -) 1 amp NEB RQID [facility] Last Admin: 11/01/17 08:14 Dose: 1 amp Heparin Sodium (Porcine) (Heparin -) 5,000 unit SQ TID [facility] Last Admin: 11/01/17 06:04 Dose: 5,000 unit Piperacillin Sod/Tazobactam (Sod 4.5 gm/ Dextrose) 100 mls @ 200 mls/hr IVPB Q8H-IV [facility] Last Admin: 11/01/17 02:41 Dose: 200 mls/hr Nicotine (Nicoderm Patch -) 21 mg TD DAILY [facility] Last Admin: 10/31/17 09:49 Dose: 21 mg Nicotine Polacrilex (Nicorette Gum -) 4 mg BUC Q2H PRN PRN Reason: NICOTINE REPLACEMENT RX Multivit/Folic Acid/Iron ( Vitamins (Sjr) -) 1 tab PO DAILY [facility] Last Admin: 10/31/17 09:49 Dose: 1 tab Thiamine HCl (Vitamin B1 -) 100 mg PO HS [facility] Last Admin: 10/31/17 22:53 Dose: 100 mg - Objective Vital Signs: Vital Signs Temperature 98.1 F 11/01/17 05:58 Pulse Rate 87 11/01/17 06:16 Respiratory Rate 20 11/01/17 05:58 Blood Pressure 137/89 11/01/17 06:16 O2 Sat by Pulse Oximetry (%) 96 10/31/17 23:20 Labs: CBC, BMP 10/30/17 06:00 10/30/17 06:00 INR, PTT INR 1.05 (0.82-1.09) 10/30/17 06:00 Problem List - Problems (1) Elevated liver enzymes Code(s): R74.8 - ABNORMAL LEVELS OF OTHER SERUM ENZYMES (2) Acute hypoxemic respiratory failure Code(s): J96.01 - ACUTE RESPIRATORY FAILURE WITH HYPOXIA (3) ETOH abuse Code(s): F10.10 - ALCOHOL ABUSE, UNCOMPLICATED (4) Intoxication Code(s): [id number] - (5) Pneumonia Code(s): J18.9 - PNEUMONIA, UNSPECIFIED ORGANISM Assessment/Plan Counceling Will need outpatient-based screening colonoscopy
[2017-11-01] MEDS: NICOTINE 21 MG/24 HOURS TOPICAL PATCH TD SCH (10:20)
[2017-11-01] MEDS: PRENATAL VITAMINS W/ FOLIC ACID TABLET (FP) PO SCH (10:20)
[2017-11-01 10:28] VITALS: PULSE 94
--- NOTE | 2017-11-01 12:01 | PN ---
Progress Note (short form) - Note Progress Note: Appears overall better. No CP or SOB. No acute events overnight. Intake & Output 10/29/17 10/30/17 10/31/17 11/01/17 23:59 23:59 23:59 23:59 Intake Total 3020 2200 1200 100 Output Total 500 Balance 3020 1700 1200 100 Last Vital Signs Temp Pulse Resp BP Pulse Ox 98.1 F 94 H 18 107/86 96 11/01/17 05:58 11/01/17 10:00 11/01/17 10:00 11/01/17 10:00 10/31/17 23:20 Active Medications Albuterol/Ipratropium (Duoneb -) 1 amp NEB RQID [facility] Last Admin: 11/01/17 11:24 Dose: 1 amp Heparin Sodium (Porcine) (Heparin -) 5,000 unit SQ TID [facility] Last Admin: 11/01/17 06:04 Dose: 5,000 unit Piperacillin Sod/Tazobactam (Sod 4.5 gm/ Dextrose) 100 mls @ 200 mls/hr IVPB Q8H-IV [facility] Last Admin: 11/01/17 10:20 Dose: 200 mls/hr Nicotine (Nicoderm Patch -) 21 mg TD DAILY [facility] Last Admin: 11/01/17 10:20 Dose: 21 mg Nicotine Polacrilex (Nicorette Gum -) 4 mg BUC Q2H PRN PRN Reason: NICOTINE REPLACEMENT RX Multivit/Folic Acid/Iron ( Vitamins (Sjr) -) 1 tab PO DAILY [facility] Last Admin: 11/01/17 10:20 Dose: 1 tab Thiamine HCl (Vitamin B1 -) 100 mg PO HS [facility] Last Admin: 10/31/17 22:53 Dose: 100 mg Constitutional: Yes: NAD Eyes: Yes: WNL HENT: Yes: WNL Neck: Yes: WNL Cardiovascular: Yes: Regular Rate and Rhythm, S1, S2 Respiratory: Yes: Few scattered Rhonchi Gastrointestinal: Yes: Normal Bowel Sounds, Soft Extremities: Yes: WNL Edema: No Labs: Problem List - Problems (1) Acute hypoxemic respiratory failure Code(s): J96.01 - ACUTE RESPIRATORY FAILURE WITH HYPOXIA (2) Pneumonia Code(s): J18.9 - PNEUMONIA, UNSPECIFIED ORGANISM (3) ETOH abuse Code(s): F10.10 - ALCOHOL ABUSE, UNCOMPLICATED (4) Syncope and collapse Code(s): R55 - SYNCOPE AND COLLAPSE (5) Laceration Code(s): T14.8 - OTHER INJURY OF UNSPECIFIED BODY REGION * DO NOT USE * (6) Tobacco abuse Code(s): Z72.0 - TOBACCO USE (7) Tobacco abuse counseling Code(s): Z71.6 - TOBACCO ABUSE COUNSELING Assessment/Plan IMP ACUTE HYPOXEMIC RESPIRATORY FAILURE IMPROVED S/P SYNCOPE SECONDARY TO ETOH,NARCOTICS LIKELY ASPIRATION PNEUMONIA ETOH ABUSE LIKELY OSAS TOBACCO ABUSE PLAN O2 ANTIBIOTICS PER ID INHALED BRONCHODILATORS DETOX PROTOCOL LIBRIUM,THIAMINE SLEEP STUDIES OUTPATIENT SMOKING CESSATION COUNSELED DR VILLARREAL
[2017-11-01 13:32] VITALS: BP 128/80; TEMP 98.4
--- NOTE | 2017-11-01 14:38 | PN ---
Progress Note, Physician History of Present Illness: No complaints offered Afebrile WBC improved-WNL - Current Medication List Current Medications: Active Medications Albuterol/Ipratropium (Duoneb -) 1 amp NEB RQID [facility] Last Admin: 11/01/17 11:24 Dose: 1 amp Heparin Sodium (Porcine) (Heparin -) 5,000 unit SQ TID [facility] Last Admin: 11/01/17 06:04 Dose: 5,000 unit Piperacillin Sod/Tazobactam (Sod 4.5 gm/ Dextrose) 100 mls @ 200 mls/hr IVPB Q8H-IV [facility] Last Admin: 11/01/17 10:20 Dose: 200 mls/hr Nicotine (Nicoderm Patch -) 21 mg TD DAILY [facility] Last Admin: 11/01/17 10:20 Dose: 21 mg Nicotine Polacrilex (Nicorette Gum -) 4 mg BUC Q2H PRN PRN Reason: NICOTINE REPLACEMENT RX Multivit/Folic Acid/Iron ( Vitamins (Sjr) -) 1 tab PO DAILY [facility] Last Admin: 11/01/17 10:20 Dose: 1 tab Thiamine HCl (Vitamin B1 -) 100 mg PO HS [facility] Last Admin: 10/31/17 22:53 Dose: 100 mg - Objective Vital Signs: Vital Signs Temperature 98.4 F 11/01/17 13:30 Pulse Rate 94 H 11/01/17 13:30 Respiratory Rate 20 11/01/17 13:30 Blood Pressure 128/80 11/01/17 13:30 O2 Sat by Pulse Oximetry (%) 96 10/31/17 23:20 Constitutional: Yes: Thin HENT: Yes: Other (poor dentition) Cardiovascular: Yes: Regular Rate and Rhythm, S1, S2 Respiratory: Yes: Rhonchi Gastrointestinal: Yes: Normal Bowel Sounds, Soft. No: Tenderness Labs: CBC, BMP 10/30/17 06:00 10/30/17 06:00 INR, PTT INR 1.05 (0.82-1.09) 10/30/17 06:00 Assessment/Plan Gram Negative bacteremia Aspiration pneumonia Leukocytosis- resolved Continue zosyn
--- NOTE | 2017-11-01 16:40 | DS ---
Physical Examination Vital Signs: Vital Signs Temperature 98.4 F 11/01/17 13:30 Pulse Rate 94 H 11/01/17 13:30 Respiratory Rate 20 11/01/17 13:30 Blood Pressure 128/80 11/01/17 13:30 O2 Sat by Pulse Oximetry (%) 96 10/31/17 23:20 Labs: CBC, BMP 10/30/17 06:00 10/30/17 06:00 Discharge Summary Reason For Visit: LACERATION Current Active Problems Acute hypoxemic respiratory failure (Acute) Alcohol dependence with uncomplicated withdrawal (Acute) Cocaine abuse (Acute) ETOH abuse (Acute) ETOH abuse (Acute) Elevated liver enzymes (Acute) Gram-negative bacteremia (Acute) Intoxication (Acute) Laceration (Acute) Nicotine dependence (Acute) Opioid abuse (Acute) Pneumonia (Acute) Pneumonia (Acute) Syncope and collapse (Acute) Tobacco abuse (Acute) Tobacco abuse counseling (Acute) Transaminitis (Acute) Condition: Stable - Instructions Diet, Activity, Other Instructions: your cat scan were abnormal--you must follow up with your doctor and repeat testing Referrals: Pavan Reyes MD [Staff Physician] - Ismael Frost MD [Staff Physician] - 11/05/17 - Home Medications Comprehensive Discharge Medication List: Ambulatory Orders Albuterol 0.083% Nebulizer Zuleika [Ventolin 0.083% Nebulizer Soln -] 1 neb NEB Q4H PRN #20 vial 06/30/15 Nicotine Patch [Nicoderm Patch -] 21 mg TD DAILY patch 11/01/17 Nicotine Polacrilex [Nicorelief -] 4 mg BUC Q2H PRN gum 11/01/17 Vitamins (Sjr) - 1 tab PO DAILY tablet 11/01/17 levoFLOXacin [Levaquin -] 500 mg PO DAILY #7 tablet 11/01/17
== END 2017-11-01 17:42 | disposition home or self-care (01) | DRG 720 ==
LOC: JER 00:10 → JERBED 03:12 → J7W 04:41
PROVIDERS: ADMIT Internal Medicine; ATTEND Family Medicine
PROC: HZ2ZZZZ Detoxification Services for Substance Abuse Treatment (ICD-10-PCS; principal; 2017-10-29)
DX: A41.50 Gram-negative sepsis, unspecified (principal); J96.01 Acute respiratory failure with hypoxia; J69.0 Pneumonitis due to inhalation of food and vomit; M62.82 Rhabdomyolysis; K76.0 Fatty (change of) liver, not elsewhere classified; R55 Syncope and collapse; F17.210 Nicotine dependence, cigarettes, uncomplicated; S01.81XA Laceration without foreign body of other part of head, initial encounter; Y90.6 Blood alcohol level of 120-199 mg/100 ml; Z90.49 Acquired absence of other specified parts of digestive tract; J32.0 Chronic maxillary sinusitis; R74.8 Abnormal levels of other serum enzymes; W01.0XXA Fall on same level from slipping, tripping and stumbling without subsequent striking against object, initial encounter; Y93.89 Activity, other specified; Y92.031 Bathroom in apartment as the place of occurrence of the external cause; Y99.8 Other external cause status; G47.33 Obstructive sleep apnea (adult) (pediatric); T40.5X1A Poisoning by cocaine, accidental (unintentional), initial encounter; T40.2X1A Poisoning by other opioids, accidental (unintentional), initial encounter; T50.7X1A Poisoning by analeptics and opioid receptor antagonists, accidental (unintentional), initial encounter; T40.4X1A Poisoning by other synthetic narcotics, accidental (unintentional), initial encounter; T51.0X1A Toxic effect of ethanol, accidental (unintentional), initial encounter; F10.230 Alcohol dependence with withdrawal, uncomplicated; F10.220 Alcohol dependence with intoxication, uncomplicated; R74.0 Nonspecific elevation of levels of transaminase and lactic acid dehydrogenase [LDH]; F14.10 Cocaine abuse, uncomplicated; F11.10 Opioid abuse, uncomplicated
CPT/HCPCS: 36415; 70450-TC; 70490-TC; 71045-TC-FY; 71046-TC-FY; 71250-TC; 72125-TC; 74176-TC; 76705-TC; 80053; 80076; 80307; 81003; 81015; 82248; 82550; 82553; 82962; 83735; 84100; 84484; 85025; 85027; 85610; 86704; 86706; 86708; 86803; 87040; 87086; 87186; 87340; 87899; 90715; 93005; 93010; 93306-TC; 94640; 99284-25; J0735; J1644

== ENCOUNTER 2018-04-04 22:27 | Inpatient (IN) | payer OTHER ==
[2018-04-04] MEDS ORDERED: RAPID SEQUENCE INTUBATION KIT NR ONE (22:31)
[2018-04-04] MEDS ORDERED: LORazepam 2 MG/ML SDV VIAL ONE ×2 (22:32→22:38)
[2018-04-04] MEDS ORDERED: ETOMIDATE 40 MG/20 ML VIAL IVPUSH ONE (22:41)
[2018-04-04] MEDS ORDERED: PROPOFOL 1,000,000 MCG/100 ML VIAL ONE (22:41)
[2018-04-04] MEDS ORDERED: ROCURONIUM BROMIDE 50 MG/5 ML VIAL IV ONE (22:42)
--- NOTE | 2018-04-04 22:46 | PDOC ---
Attending Attestation - HPI HPI: 04/04/18 22:50 The patient is a 53 year old male, with a significant PMH of EtOH abuse, who presents to the emergency department via EMS with altered mental status. As per EMS, [place] and was given several doses of narcan with minimal response. The patient presents confused, agitated and combative. Allergies: Fish containing products. Shellfish derived. [Seafood] - Physicial Exam PE: 04/04/18 22:51 GENERAL: (+) Agitated and combative. Well developed, well nourished. HEENT: (+) Pupils 8mm dilated, equal and reactive. Normocephalic, atraumatic. EOM intact. No obvious trauma. CARDIOVASCULAR: (+) Tachycardia. Regular rhythm. Normal S1, S2. PULMONARY: Clear to auscultation bilaterally. ABDOMEN: Soft, non-distended, non-tender. EXTREMITIES: Normal ROM in all four extremities. No gross deformities. Moving all extremities equally. SKIN: Warm, dry. No rash NEUROLOGICAL: No focal neurological deficits. <Zac Morales - Last Filed: 04/04/18 23:35> - Resident Resident Name: Tony Cuellar - ED Attending Attestation I have performed the following: I have examined & evaluated the patient, The case was reviewed & discussed with the resident, I agree w/resident's findings & plan, Exceptions are as noted - Medical Decision Making 04/05/18 02:42 Pt admitted to ICU for further evaluation and care <Miguel Bravo - Last Filed: 04/05/18 02:42> Attestations - Attestations 04/04/18 22:54 Documentation prepared by Zac Morales, acting as emergency medical service coordinator for Miguel Bravo DO. <Zac Morales - Last Filed: 04/04/18 23:35>
[2018-04-04 22:52] LABS: BASO % 0.7 % (0-2.0); EOS % 1.5 % (0-4.5); HEMATOCRIT 44.4 % (35.4-49); LYMPH % 54.6 % (8-40); MCH 32.4 pg (25.7-33.7); MCHC 33.7 g/dl (32.0-35.9); MEAN CELL VOLUME 96.3 fl (80-96); MEAN PLT VOLUME 7.9 fl (7.5-11.1); MONO % 7.7 % (3.8-10.2); NEUT % 35.5 % (42.8-82.8); PLATELET COUNT 345 K/MM3 (134-434); RBC 4.62 M/mm3 (4.00-5.60); RDW 13.1 % (11.9-15.9); WHITE BLOOD COUNT 12.3 K/mm3 (4.0-10.0)
[2018-04-04 23:04] LABS: INR 0.97 (0.82-1.09)
[2018-04-04 23:16] LABS: ALBUMIN 4.2 g/dl (3.4-5.0); ANION GAP 17 (8-16); BILIRUBIN,TOTAL 0.4 mg/dL (0.2-1.0); BLOOD UREA NITROGEN 15 mg/dL (7-18); CALCIUM 8.5 mg/dL (8.5-10.1); CHLORIDE 110 mmol/L (98-107); CO2 17 mmol/L (21-32); CREATININE 1.1 mg/dL (0.7-1.3); GLUCOSE,RANDOM 139 mg/dL (74-106); POTASSIUM 3.6 mmol/L (3.5-5.1); SGOT/AST 155 U/L (15-37); SGPT/ALT 97 U/L (12-78); SODIUM 144 mmol/L (136-145); TOT PROT 7.5 g/dl (6.4-8.2)
--- NOTE | 2018-04-04 23:18 | PDOC ---
*Physical Exam - Vital Signs Last Vital Signs Temp Pulse Resp BP Pulse Ox 108 H 14 110/77 100 04/04/18 22:58 04/04/18 22:58 04/04/18 22:58 04/04/18 22:58 ED Treatment Course - LABORATORY CBC & Chemistry Diagram: 04/07/18 06:10 04/07/18 06:10 - ADDITIONAL ORDERS Additional order review: 04/04/18 22:44 RBC 4.62 MCV 96.3 H MCHC 33.7 RDW 13.1 MPV 7.9 Neutrophils % 35.5 L D Lymphocytes % 54.6 H D Monocytes % 7.7 Eosinophils % 1.5 D Basophils % 0.7 - Medications Given in the ED: ED Medications Discontinued Medications Generic Name Dose Route Start Last Admin Trade Name Priyanka PRN Reason Stop Dose Admin Lorazepam 2 mg 04/04/18 22:41 04/04/18 22:57 Ativan Injection - IVPUSH 04/04/18 22:42 2 mg ONCE ONE Administration Rocuronium [place] 70 mg 04/04/18 22:42 04/04/18 22:57 Zemuron - IV 04/04/18 22:43 70 mg ONCE ONE Administration Medical Decision Making - Medical Decision Making 04/04/18 23:15 I performed intubation on this patient. Etomidate and Rocuronium used for sedation/paralysis. Patient was preoxygenated to 100%. I directly visualized the cords and inserted the ET tube. Placement of tube was confirmed by bilateral breath sounds, no air in the epigastrium, color change on CO2 indicator, and XRay. Patient placed on vent and saturating well. *DC/Admit/Observation/Transfer Diagnosis at time of Disposition: Respiratory distress - Discharge Dispostion Disposition: HOME Condition at time of disposition: Stable - Referrals - Patient Instructions - Post Discharge Activity Procedures - Intubation Intubation Method: orotracheal Blade used: Mac Tube Size (Fr): 7.5 Medications: Etomidate, Rocuronium Tube position @ lip (cm): 22 Tube position confirmed by: Direct visualization, CO2 detector, Chest x-ray, Breath sounds Breath Sounds after Intubation: equal Intubation Complications: no complications Post Intubation Xray: Yes
[2018-04-04 23:19] LABS: ALK PHOS 102 U/L (45-117)
[2018-04-04] MEDS ORDERED: SODIUM CHLORIDE 0.9% 1000 ML INFUS.BAG IV ONE ×2 (23:29)
--- NOTE | 2018-04-04 23:29 | PDOC ---
History of Present Illness - General Chief Complaint: Respiratory Distress Stated Complaint: intox Time Seen by Provider: 04/04/18 22:40 History Source: EMS Exam Limitations: Clinical Condition, Intoxication - History of Present Illness Initial Comments: 04/04/18 23:29 The patient is a 53M with unknown medical history who presents via EMS after having a syncopal episode and being found unresponsive. Per EMS, he has a hx of EtOH abuse and was drinking today. He had a witnessed syncopal episode and then became unresponsive. En route, he became apeniec and required BVM. He was given 3mg of Narcan without response. Pt cannot provide any hx 2/2 clinical condition. Past History - Past Medical History Allergies/Adverse Reactions: Allergies Allergy/AdvReac Type Severity Reaction Status Date / Time Fish Containing Products Allergy Verified 03/26/18 01:59 shellfish derived Allergy Verified 03/26/18 01:59 SEAFOOD Allergy Rash Uncoded 03/26/18 01:59 Home Medications: Ambulatory Orders Oxycodone HCl/Acetaminophen [Percocet 5-325 mg Tablet] 1 - 2 tab PO Q4H Asthma: Yes COPD: No GI Disorders: Yes (COLITIS) Thyroid Disease: No - Surgical History Abdominal Surgery: Yes (COLON SURGERY 1989) - Suicide/Smoking/Psychosocial Hx Smoking Status: Yes Smoking History: Unknown if ever smoked Have you smoked in the past 12 months: No Number of Cigarettes Smoked Daily: 20 Cigars Per Day: 0 'Breaking Loose' booklet given: 06/30/15 Hx Alcohol Use: Yes Drug/Substance Use Hx: No Substance Use Type: None, Alcohol Hx Substance Use Treatment: Yes (yes, new focus) Review of Systems - Review of Systems Able to Perform ROS?: No (Clinical condition) Is the patient limited Slovenian proficient: No *Physical Exam - Vital Signs Last Vital Signs Temp Pulse Resp BP Pulse Ox 108 H 14 110/77 100 04/04/18 22:58 04/04/18 22:58 04/04/18 22:58 04/04/18 22:58 - Physical Exam Comments: 04/05/18 00:58 GENERAL: Obtunded, in moderate distress. HEENT: Normocephalic, atraumatic. Hearing grossly normal. Moist mucous membranes. PERRLA 5mm, EOMI. No conjunctival pallor. Sclera are non-icteric. NECK: Supple. Full ROM. CARDIOVASCULAR: Regular rate and rhythm. No murmurs, rubs, or gallops. PULMONARY: Agonal breathing. Lungs clear to auscultation bilaterally. No wheezing, rales or rhonchi. ABDOMINAL: Soft. Non-tender. Non-distended. No rebound or guarding. MUSCULOSKELETAL: Normal range of motion at all joints. No bony deformities or tenderness. EXTREMITIES: No cyanosis. No clubbing. No edema. No calf tenderness or swelling. SKIN: Warm and dry. Normal capillary refill. No rashes. No jaundice. NEUROLOGICAL: Alert, awake, appropriate. Cranial nerves grossly 2-12 intact. PSYCHIATRIC: Not cooperative. ED Treatment Course - LABORATORY CBC & Chemistry Diagram: 04/04/18 22:44 04/04/18 22:44 - ADDITIONAL ORDERS Additional order review: Laboratory Results 04/04/18 04/04/18 22:44 22:44 PT with INR 11.00 INR 0.97 Sodium 144 Potassium 3.6 Chloride 110 H Carbon Dioxide 17 L D Anion Gap 17 H BUN 15 Creatinine 1.1 Creat Clearance w eGFR > 60 Random Glucose 139 H D Calcium 8.5 Total Bilirubin 0.4 AST 155 H D ALT 97 H Alkaline Phosphatase 102 Creatine Kinase 188 Troponin I < 0.02 Total Protein 7.5 Albumin 4.2 04/04/18 22:44 RBC 4.62 MCV 96.3 H MCHC 33.7 RDW 13.1 MPV 7.9 Neutrophils % 35.5 L D Lymphocytes % 54.6 H D Monocytes % 7.7 Eosinophils % 1.5 D Basophils % 0.7 - Medications Given in the ED: ED Medications Discontinued Medications Generic Name Dose Route Start Last Admin Trade Name Freq PRN Reason Stop Dose Admin Lorazepam 2 mg 04/04/18 22:41 04/04/18 22:57 Ativan Injection - IVPUSH 04/04/18 22:42 2 mg ONCE ONE Administration Rocuronium [place] 70 mg 04/04/18 22:42 04/04/18 22:57 Zemuron - IV 04/04/18 22:43 70 mg ONCE ONE Administration Medical Decision Making - Medical Decision Making 04/05/18 00:59 The patient is a 53M with a PMH of EtOH abuse who presents to the ER unresponsive, with dilated pupils, minimally withdrawing from pain. He was having agonal breathing and began to have clonic movements, possibly seizures. He was given 2mg Ativan and the movements stopped. He continued to have agonal breathing and was intubated successfully. He remained tachycardic and was found to have a borderline hypotensive BP 100's/60's. Versed is given for sedation. Young catheter was placed. He was taken to CT which was negative. Pt signed out to ICU and inpatient team. EKG was not done in ER, ICU team notified. *DC/Admit/Observation/Transfer Diagnosis at time of Disposition: Respiratory distress - Discharge Dispostion Condition at time of disposition: Critical Decision to Admit order: Yes - Referrals - Patient Instructions - Post Discharge Activity
[2018-04-04] MEDS ORDERED: PROPOFOL 200 MG/20 ML VIAL IVPUSH ONE ×2 (23:56→23:59)
--- NOTE | 2018-04-05 00:31 | HP ---
CHIEF COMPLAINT: syncope, unresponsive PCP: Margot HISTORY OF PRESENT ILLNESS: This is a 53 year old male with a past medical history of syncope, ETOH abuse, JAYLYN, colitis s/p colectomy presented to the ED after syncopal episode. Pt became agonal in ambulance and EMS were bagging pt upon arrival. ED resident reports pt was agonally breathing with entire body stiffening and arching of back, unresponsive to sternal rub. Ativan was given for possible seizure activity and pt was intubated for airway management. Of note pt was seen in the emergency department on 03/25 for syncopal episode. Pt is intubated upon exam, unable to obtain ROS. Called who states that pt had called her around 630 to say that he wasn't feeling well and was leaving work early. He did not come home and she later received a phone call from a friend of his who reported that he passed out in front of work and was being taken to the hospital. She does not know if the patient was drinking today or not. ER course was notable for: (1) agonal respirations, intubated (2) WBC 12.3 Recent Travel: unknown PAST MEDICAL HISTORY: syncope, ETOH abuse, JAYLYN, colitis PAST SURGICAL HISTORY: colectomy Social History: Smoking: unk Alcohol: yes-as per brother "more than a human being should drink" Drugs: unk presently-Utox on 02/24 positive for THC and known prior admitted h/o cocaine and heroin nasal use as well as percocet abuse on admission October 2017, prior suboxone and xanax abuse as per brother Family History: unk Allergies Fish Containing Products Allergy (Verified 03/26/18 01:59) shellfish derived Allergy (Verified 03/26/18 01:59) SEAFOOD Allergy (Uncoded 03/26/18 01:59) Rash HOME MEDICATIONS: 3 Medication Instructions Recorded Oxycodone HCl/Acetaminophen 1 - 2 tab PO Q4H 03/26/18 [Percocet 5-325 mg Tablet] REVIEW OF SYSTEMS--unable to obtain due to pt intubated and sedated CARDIOVASCULAR: Present: syncope PHYSICAL EXAMINATION Vital Signs - 24 hr 3 04/04/18 04/04/18 22:50 22:58 Pulse Rate 108 H Respiratory 14 14 Rate Blood Pressure 110/77 O2 Sat by Pulse 100 Oximetry (%) GENERAL: sedated on ventilator HEAD: Normal with no signs of trauma. EYES: Pupils equal, round and reactive to light, extraocular movements intact, sclera anicteric, conjunctiva clear. No lid lag. EARS, NOSE, THROAT: Ears normal, nares patent, oropharynx clear without exudates. Moist mucous membranes. NECK: Normal range of motion, supple without lymphadenopathy, JVD, or masses. LUNGS: Breath sounds equal, clear to auscultation bilaterally. No wheezes, and no crackles. No accessory muscle use. HEART: Regular rate and rhythm, normal S1 and S2 without murmur, rub or gallop. ABDOMEN: Soft, nontender, not distended, normoactive bowel sounds, no guarding, no rebound, no masses. No hepatomegaly or splenomegaly. MUSCULOSKELETAL: Normal range of motion at all joints. No bony deformities or tenderness. No CVA tenderness. UPPER EXTREMITIES: 2+ pulses, warm, well-perfused. No cyanosis. No clubbing. No peripheral edema. LOWER EXTREMITIES: 2+ pulses, warm, well-perfused. No calf tenderness. No peripheral edema. NEUROLOGICAL: intubated/sedated PSYCHIATRIC: intubated SKIN: Warm, dry, normal turgor, no rashes or lesions noted, normal capillary refill. Laboratory Results - last 24 hr 3 04/04/18 04/04/18 04/04/18 22:44 22:44 22:44 WBC 12.3 H RBC 4.62 Hgb 15.0 Hct 44.4 MCV 96.3 H MCH 32.4 MCHC 33.7 RDW 13.1 Plt Count 345 D MPV 7.9 Absolute Neuts (auto) 4.4 Neutrophils % 35.5 L D Lymphocytes % 54.6 H D Monocytes % 7.7 Eosinophils % 1.5 D Basophils % 0.7 Nucleated RBC % 0 PT with INR 11.00 INR 0.97 Sodium 144 Potassium 3.6 Chloride 110 H Carbon Dioxide 17 L D Anion Gap 17 H BUN 15 Creatinine 1.1 Creat Clearance w eGFR > 60 Random Glucose 139 H D Calcium 8.5 Total Bilirubin 0.4 AST 155 H D ALT 97 H Alkaline Phosphatase 102 Creatine Kinase 188 Creatine Kinase Index 1.0 CK-MB (CK-2) 1.99 Troponin I < 0.02 Total Protein 7.5 Albumin 4.2 Blood Type A NEGATIVE Antibody Screen Negative 3 ABG pH 7.24 (7.35-7.45) L* 04/05/18 00:30 ABG pCO2 at Pt Temp 48.3 mmHg (35-45) H 04/05/18 00:30 ABG pO2 at Pt Temp 329.0 mmHg (80-100) H* 04/05/18 00:30 ABG HCO3 19.9 meq/L (22-26) L 04/05/18 00:30 ABG O2 Sat (Measured) 99.6 % (90-98.9) H* 04/05/18 00:30 ABG O2 Content 18.9 % vol (15-22) 04/05/18 00:30 ABG Base Excess -7.3 meq/l (-2-2) L 04/05/18 00:30 ECG not done in ED, awaiting to be done Radiology Report HEAD CT WITHOUT CONTRAST THIS IS A PRELIMINARY REPORT FROM IMAGING DESIGN TECHNOLOGY PROFESSOR FINDINGS: The ventricular system is midline and nondilated. The sulcal pattern is normal for the patient's age. Early small vessel ischemic changes are noted. There is no bleed , mass, extra-axial fluid collection or mass effect. No skull fracture or skull lesion is identified. The visualized paranasal sinuses and mastoid air cells are clear. IMPRESSION: No evidence of acute pathology. THIS DOCUMENT HAS BEEN ELECTRONICALLY SIGNED German Cunningham MD 04/05/2018 00:45 EST ASSESSMENT/PLAN: 53yM with PMH ETOH abuse, JAYLYN, colitis s/p colectomy presented to the ED after syncopal episode. Pt became agonal in ambulance and EMS were bagging pt upon arrival. ED resident reports pt was agonally breathing with entire body stiffening and arching of back. Ativan was given for possible seizure activity and pt was intubated for airway management. Respiratory failure - pt intubated and sedated. - cont mechanical ventilation - cont versed and propofol - CXR without acute findings on prelim read, await final read acidosis - combined metabolic and respiratory - ? due to inadequate ventilation - ? ketotic due to ETOH, await lab results - cont mechanical ventilation - IV fluids ETOH abuse - banana bag x 1 - on versed drip, when awakes monitor need for librium taper DVT PPX - heparin SC FEN - banana bag then D5NS @ 100cc/hr - BMP in am - npo for now Dispo: pt currently requires critical care in the ICU Visit type - Emergency Visit Emergency Visit: Yes ED Registration Date: 04/05/18 Care time: The patient presented to the Emergency Department on the above date and was hospitalized for further evaluation of their emergent condition. - New Patient This patient is new to me today: Yes Date on this admission: 04/05/18 - Critical Care Critical Care patient: Yes Total Critical Care Time (in minutes): 45 Critical Care Statement: The care of this patient involved high complexity decision making to prevent further life threatening deterioration of the patient 's condition and/or to evaluate & treat vital organ system(s) failure or risk of failure. Hospitalist Screening - Colonoscopy Questionnaire Colonoscopy Questionnaire: Colonoscopy Questionnaire - Patient: 50 - 75 years old and never had a screening colonoscopy: Unknown History of colon or rectal polyps, or CA: Unknown History of IBD, Crohn's disease or UC: Unknown History of abdominal radiation therapy as a child: Unknown - Relative: 1 with colon or rectal CA, or polyps at age 60 or younger: Unknown Colon or rectal CA diagnosed at age 45 or younger: Unknown Multiple relatives with colon or rectal CA: Unknown - Outcome: Screening Result: Negative Screen
[2018-04-05] MEDS ORDERED: FOLIC ACID INJECTION - 1 MG, THIAMINE HCL 100 MG, MULTIVIT INJECTION ADULT 10 ML in SOD... IVPB ONE (00:48)
--- NOTE | 2018-04-05 00:50 | HP ---
CHIEF COMPLAINT: PCP: HISTORY OF PRESENT ILLNESS: ER course was notable for: (1) (2) (3) Recent Travel: PAST MEDICAL HISTORY: PAST SURGICAL HISTORY: Social History: Smoking: Alcohol: Drugs: Family History: Allergies Fish Containing Products Allergy (Verified 03/26/18 01:59) shellfish derived Allergy (Verified 03/26/18 01:59) SEAFOOD Allergy (Uncoded 03/26/18 01:59) Rash HOME MEDICATIONS: Home Medications Medication Instructions Recorded Oxycodone HCl/Acetaminophen 1 - 2 tab PO Q4H 03/26/18 [Percocet 5-325 mg Tablet] REVIEW OF SYSTEMS CONSTITUTIONAL: Absent: fever, chills, diaphoresis, generalized weakness, malaise, loss of appetite, weight change HEENT: Absent: rhinorrhea, nasal congestion, throat pain, throat swelling, difficulty swallowing, mouth swelling, ear pain, eye pain, visual changes CARDIOVASCULAR: Absent: chest pain, syncope, palpitations, irregular heart rate, lightheadedness , peripheral edema RESPIRATORY: Absent: cough, shortness of breath, dyspnea with exertion, orthopnea, wheezing, stridor, hemoptysis GASTROINTESTINAL: Absent: abdominal pain, abdominal distension, nausea, vomiting, diarrhea, constipation, melena, hematochezia GENITOURINARY: Absent: dysuria, frequency, urgency, hesitancy, hematuria, flank pain, genital pain MUSCULOSKELETAL: Absent: myalgia, arthralgia, joint swelling, back pain, neck pain SKIN: Absent: rash, itching, pallor HEMATOLOGIC/IMMUNOLOGIC: Absent: easy bleeding, easy bruising, lymphadenopathy, frequent infections ENDOCRINE: Absent: unexplained weight gain, unexplained weight loss, heat intolerance, cold intolerance NEUROLOGIC: Absent: headache, focal weakness or paresthesias, dizziness, unsteady gait, seizure, mental status changes, bladder or bowel incontinence PSYCHIATRIC: Absent: anxiety, depression, suicidal or homicidal ideation, hallucinations. PHYSICAL EXAMINATION Vital Signs - 24 hr 04/04/18 04/04/18 22:50 22:58 Pulse Rate 108 H Respiratory 14 14 Rate Blood Pressure 110/77 O2 Sat by Pulse 100 Oximetry (%) GENERAL: Awake, alert, and fully oriented, in no acute distress. HEAD: Normal with no signs of trauma. EYES: Pupils equal, round and reactive to light, extraocular movements intact, sclera anicteric, conjunctiva clear. No lid lag. EARS, NOSE, THROAT: Ears normal, nares patent, oropharynx clear without exudates. Moist mucous membranes. NECK: Normal range of motion, supple without lymphadenopathy, JVD, or masses. LUNGS: Breath sounds equal, clear to auscultation bilaterally. No wheezes, and no crackles. No accessory muscle use. HEART: Regular rate and rhythm, normal S1 and S2 without murmur, rub or gallop. ABDOMEN: Soft, nontender, not distended, normoactive bowel sounds, no guarding, no rebound, no masses. No hepatomegaly or splenomegaly. MUSCULOSKELETAL: Normal range of motion at all joints. No bony deformities or tenderness. No CVA tenderness. UPPER EXTREMITIES: 2+ pulses, warm, well-perfused. No cyanosis. No clubbing. No peripheral edema. LOWER EXTREMITIES: 2+ pulses, warm, well-perfused. No calf tenderness. No peripheral edema. NEUROLOGICAL: Cranial nerves II-XII intact. Normal speech. Normal gait. PSYCHIATRIC: Cooperative. Good eye contact. Appropriate mood and affect. SKIN: Warm, dry, normal turgor, no rashes or lesions noted, normal capillary refill. Laboratory Results - last 24 hr 04/04/18 04/04/18 04/04/18 22:44 22:44 22:44 WBC 12.3 H RBC 4.62 Hgb 15.0 Hct 44.4 MCV 96.3 H MCH 32.4 MCHC 33.7 RDW 13.1 Plt Count 345 D MPV 7.9 Absolute Neuts (auto) 4.4 Neutrophils % 35.5 L D Lymphocytes % 54.6 H D Monocytes % 7.7 Eosinophils % 1.5 D Basophils % 0.7 Nucleated RBC % 0 PT with INR 11.00 INR 0.97 Anticoagulation Therapy O2 Delivery Device Oxygen Flow Rate Sodium 144 Potassium 3.6 Chloride 110 H Carbon Dioxide 17 L D Anion Gap 17 H BUN 15 Creatinine 1.1 Creat Clearance w eGFR > 60 Random Glucose 139 H D Calcium 8.5 Total Bilirubin 0.4 AST 155 H D ALT 97 H Alkaline Phosphatase 102 Creatine Kinase 188 Creatine Kinase Index 1.0 CK-MB (CK-2) 1.99 Troponin I < 0.02 Total Protein 7.5 Albumin 4.2 Blood Type Antibody Screen 04/04/18 04/05/18 22:44 00:30 WBC RBC Hgb Hct MCV MCH MCHC RDW Plt Count MPV Absolute Neuts (auto) Neutrophils % Lymphocytes % Monocytes % Eosinophils % Basophils % Nucleated RBC % PT with INR INR Anticoagulation Therapy No Result Required. O2 Delivery Device No Result Required. Oxygen Flow Rate No Result Required. Sodium Potassium Chloride Carbon Dioxide Anion Gap BUN Creatinine Creat Clearance w eGFR Random Glucose Calcium Total Bilirubin AST ALT Alkaline Phosphatase Creatine Kinase Creatine Kinase Index CK-MB (CK-2) Troponin I Total Protein Albumin Blood Type A NEGATIVE Antibody Screen Negative ASSESSMENT/PLAN: Hospitalist Screening - Colonoscopy Questionnaire Colonoscopy Questionnaire: Colonoscopy Questionnaire
[2018-04-05 00:52] LABS: ARTERIAL BLD GAS O2 SATURATION 99.6 % (90-98.9); ARTERIAL BLOOD GAS BASE EXCESS -7.3 meq/l (-2-2); ARTERIAL BLOOD GAS PCO2 48.3 mmHg (35-45); ARTERIAL BLOOD GAS pH 7.24 (7.35-7.45); CARBOXYHEMOGLOBIN 2.5 gm% (0.5-2.0)
[2018-04-05] MEDS: MIDAZOLAM 100 MG in SODIUM CHLORIDE 100 ML IVPB SCH ×2 (00:55→03:31)
[2018-04-05] MEDS: PROPOFOL 1,000,000 MCG/100 ML VIAL IVPB SCH ×2 (00:56→03:30)
[2018-04-05 01:00] LABS: ALLENS TEST POSITIVE
--- NOTE | 2018-04-05 01:05 | CONSULT ---
Consultation: REQUESTING PROVIDER: CONSULT REQUEST: We have been asked to medically evaluate this patient for ( intensive care). HISTORY OF PRESENT ILLNESS: This is a 53 year old male with a past medical history of syncope, ETOH abuse, JAYLYN, colitis s/p colectomy presented to the ED after syncopal episode. Pt became agonal in ambulance and EMS were bagging pt upon arrival also got narcone x3 . ED resident reports pt was agonally breathing with entire body stiffening and arching of back. Ativan was given for possible seizure activity and pt was intubated for airway management got 70 of rocaronium and then in CT scan he got 50 of rocaronium because he got agitated. Patient was intubated because he had gasping/ agonal breathing and apenic spells. As per brother: drinls alcohol every day more than a human being should drink, possible zanax, marijuana, suboxane and cocain. Patient was also started on propofol and benzodizapine in ed. Got IV fluid [address] head No acute pathology. CBC and CMP reviewed, transamenitis ould be because of alcohol intake. ABG shows metabolic and respiratory acidosis. Of note pt was seen in the emergency department on 03/25 for syncopal episode. Pt is intubated upon exam, unable to obtain ROS. REVIEW OF SYSTEMS: unobtainable. PHYSICAL EXAMINATION Vital Signs - 24 hr 04/04/18 04/04/18 04/05/18 22:50 22:58 01:00 Pulse Rate 108 H Respiratory 14 14 14 Rate Blood Pressure 110/77 O2 Sat by Pulse 100 Oximetry (%) GENERAL: sedated HEAD: Normal with no signs of trauma. EYES: Pupils equal, round and reactive to light, sclera anicteric, conjunctiva clear. EARS, NOSE, THROAT: ET tube and orogastric tube present. NECK: Normal range of motion, supple without lymphadenopathy, JVD, or masses. LUNGS: Breath sounds equal, clear to auscultation bilaterally. corse breathing b /l HEART: Regular rate and rhythm, normal S1 and S2 without murmur, rub or gallop. ABDOMEN: Soft, not distended, normoactive bowel sounds, UPPER EXTREMITIES: 2+ pulses, warm, well-perfused. No cyanosis. No clubbing. LOWER EXTREMITIES: , warm, well-perfused. No peripheral edema. NEUROLOGICAL: unobtainable SKIN: Warm, dry, Laboratory Results - last 24 hr 04/04/18 04/04/18 04/04/18 22:44 22:44 22:44 WBC 12.3 H RBC 4.62 Hgb 15.0 Hct 44.4 MCV 96.3 H MCH 32.4 MCHC 33.7 RDW 13.1 Plt Count 345 D MPV 7.9 Absolute Neuts (auto) 4.4 Neutrophils % 35.5 L D Lymphocytes % 54.6 H D Monocytes % 7.7 Eosinophils % 1.5 D Basophils % 0.7 Nucleated RBC % 0 PT with INR 11.00 INR 0.97 Anticoagulation Therapy Puncture Site ABG pH ABG pCO2 at Pt Temp ABG pO2 at Pt Temp ABG HCO3 ABG O2 Sat (Measured) ABG O2 Content ABG Base Excess Hay Test Carboxyhemoglobin Methemoglobin O2 Delivery Device Oxygen Flow Rate Vent Mode Vent Rate Mechanical Rate PEEP Pressure Support Vent Sodium 144 Potassium 3.6 Chloride 110 H Carbon Dioxide 17 L D Anion Gap 17 H BUN 15 Creatinine 1.1 Creat Clearance w eGFR > 60 Random Glucose 139 H D Calcium 8.5 Total Bilirubin 0.4 AST 155 H D ALT 97 H Alkaline Phosphatase 102 Creatine Kinase 188 Creatine Kinase Index 1.0 CK-MB (CK-2) 1.99 Troponin I < 0.02 Total Protein 7.5 Albumin 4.2 Blood Type Antibody Screen 04/04/18 04/05/18 22:44 00:30 WBC RBC Hgb Hct MCV MCH MCHC RDW Plt Count MPV Absolute Neuts (auto) Neutrophils % Lymphocytes % Monocytes % Eosinophils % Basophils % Nucleated RBC % PT with INR INR Anticoagulation Therapy No Puncture Site Right radial ABG pH 7.24 L* ABG pCO2 at Pt Temp 48.3 H ABG pO2 at Pt Temp 329.0 H* ABG HCO3 19.9 L ABG O2 Sat (Measured) 99.6 H* ABG O2 Content 18.9 ABG Base Excess -7.3 L Hay Test Positive Carboxyhemoglobin 2.5 H Methemoglobin 1.5 O2 Delivery Device Oxygen-vent Oxygen Flow Rate 100% Vent Mode No Result Required. Vent Rate 14 Mechanical Rate No Result Required. PEEP 5.0 Pressure Support Vent No Result Required. Sodium Potassium Chloride Carbon Dioxide Anion Gap BUN Creatinine Creat Clearance w eGFR Random Glucose Calcium Total Bilirubin AST ALT Alkaline Phosphatase Creatine Kinase Creatine Kinase Index CK-MB (CK-2) Troponin I Total Protein Albumin Blood Type A NEGATIVE Antibody Screen Negative Active Medications Generic Name Dose Route Start Last Admin Trade Name Priyanka PRN Reason Stop Dose Admin Chlorhexidine Gluconate 1 applic 04/05/18 22:00 Hibiclens For Decolonization - TP HS [facility] Heparin Sodium (Porcine) 5,000 unit 04/05/18 06:00 Heparin - SQ TID [facility] Propofol 1,000,000 mcg in 100 mls @ 5.4 mls/hr 04/04/18 23:00 04/05/18 00:56 Diprivan - IVPB Not Given TITR [facility] Protocol 10 MCG/KG/MIN Midazolam HCl 100 mg/ Sodium 100 mls @ 1 mls/hr 04/04/18 23:15 04/05/18 00:55 Chloride IVPB 1 mg/hr TITR AMANDA 1 mls/hr Administration Protocol 1 MG/HR Folic Acid 1 mg/ Thiamine HCl 1,000 mls @ 125 mls/hr 04/05/18 00:48 100 mg/ Multivitamins/Minerals IVPB 04/05/18 08:47 10 ml/ Sodium Chloride ONCE ONE Dextrose/Sodium Chloride 1,000 mls @ 100 mls/hr 04/05/18 01:15 D5-Ns - IV ASDIR [facility] Mupirocin 1 applic 04/05/18 10:00 Bactroban Ointment (For Decolonization) - NS 04/10/18 09:59 BID [facility] Thiamine HCl 200 mg 04/05/18 10:00 Vitamin B1 Injection - IVPB DAILY [facility] ASSESSMENT/PLAN: syncope d/d alcohol intoxication, polysubstance abuse, hypoxia, metabolic encephalopathy, hepatic encephalopathy, dka, thyroid abnormality., seizure, less likely stroke. respiratory with metabolic acidosis. polysubstance abuse. Acute Hypoxic Respiratory failure likely secondary to drug overdose Polysubstance abuse Elevated LFT's likely from fatty liver due to alocohol. Plan keep sedated over night. IV fluid d5ns and bananbag. IV thiamine. keep head end elevated aspiration precautions keep map > 65 keep spo2 > 93 nielson cath. I and O measurement. monitor intake and output. orogastric tube. Labs: tsh, amoonia, vit b12, lactic acid, serum acetone, UA, urine toxicology, blood glucose monitoring. EKG stat. urine and blood culture.. CT head no acute pathology. might need librium protocol once he is off from midazolam drip and is extubated. ekg shows NSR, st elevation, probably due to early repolarisation, but all of them are around 1mm, qtc 473, left axis deviation, pr 77 cardiac monitoring, repeat trop in am. seizure precaution. heparin sq protonix for gi prophylaxis. icu care Dispo: We will continue to follow the patient. Thank you for this consultative opportunity. Visit type - Emergency Visit Emergency Visit: Yes ED Registration Date: 04/05/18 Care time: The patient presented to the Emergency Department on the above date and was hospitalized for further evaluation of their emergent condition. - New Patient This patient is new to me today: Yes Date on this admission: 04/09/18 - Critical Care Critical Care patient: Yes Total Critical Care Time (in minutes): 45 Critical Care Statement: The care of this patient involved high complexity decision making to prevent further life threatening deterioration of the patient 's condition and/or to evaluate & treat vital organ system(s) failure or risk of failure.
[2018-04-05 03:25] LABS: URINE APPEARANCE TURBID; URINE BILIRUBIN NEGATIVE (<2.0 mg/dL); URINE COLOR DKYELLOW; URINE GLUCOSE (UA) NEGATIVE (NEGATIVE); URINE KETONE NEGATIVE (NEGATIVE); URINE LEUK ESTERASE NEGATIVE (NEGATIVE); URINE NITRITE NEGATIVE (NEGATIVE); URINE UROBILINOGEN NEGATIVE mg/dL (0.2-1.0)
[2018-04-05] MEDS: DEXTROSE 5%-NORMAL SALINE 1,000 ML IV SCH (03:29)
[2018-04-05 03:48] LABS: COCAINE, UR NEGATIVE ng/ml (CUTOFF=300); URINE AMPHETAMINES NEGATIVE ng/ml (CUTOFF=500); URINE BARBITURATES NEGATIVE ng/ml (CUTOFF=200)
[2018-04-05 03:49] LABS: METHADONE, UR NEGATIVE ng/ml (CUTOFF=300); OPIATES, URI NEGATIVE ng/ml (CUTOFF=300); PHENCYCLIDINE,URINE NEGATIVE ng/ml (CUTOFF=25)
[2018-04-05 03:50] LABS: URINE BENZODIAZEPINES POSITIVE ng/ml (CUTOFF=200)
[2018-04-05 04:08] LABS: URINE PROTEIN 2+ (NEGATIVE)
[2018-04-05 04:09] LABS: EPI CELLS RARE /HPF (FEW); URINE BACTERIA FEW /hpf (NONE SEEN); URINE HYALINE CAST 2 /lpf; URINE MUCUS RARE
[2018-04-05] MEDS: HEPARIN NA (PORCINE) 5,000 UNITS/ML 1ML VIAL SQ SCH ×3 (06:07→22:02)
[2018-04-05] MEDS ORDERED: LACTULOSE 20 GM/30 ML UDC (FOR ORAL USE ONLY) PO ONE (06:11)
[2018-04-05 06:15] LABS: BASO % 0.4 % (0-2.0); EOS % 1.3 % (0-4.5); HEMATOCRIT 37.4 % (35.4-49); LYMPH % 27.9 % (8-40); MCH 33.1 pg (25.7-33.7); MCHC 34.8 g/dl (32.0-35.9); MEAN CELL VOLUME 95.1 fl (80-96); MEAN PLT VOLUME 7.8 fl (7.5-11.1); MONO % 9.3 % (3.8-10.2); NEUT % 61.1 % (42.8-82.8); PLATELET COUNT 248 K/MM3 (134-434); RBC 3.93 M/mm3 (4.00-5.60); RDW 12.8 % (11.9-15.9); WHITE BLOOD COUNT 10.2 K/mm3 (4.0-10.0)
[2018-04-05 06:19] LABS: INR 1.11 (0.82-1.09); PROTHROMBIN TIME (PATIENT) 12.5 SEC (9.7-13.0)
[2018-04-05 06:22] LABS: ACTIVATED PTT 25.7 SECONDS (25.2-36.5)
[2018-04-05 06:35] LABS: ALBUMIN 3.1 g/dl (3.4-5.0); ANION GAP 5 (8-16); BLOOD UREA NITROGEN 14 mg/dL (7-18); CALCIUM 7.5 mg/dL (8.5-10.1); CHLORIDE 116 mmol/L (98-107); CO2 25 mmol/L (21-32); GLUCOSE,RANDOM 92 mg/dL (74-106); SODIUM 146 mmol/L (136-145)
[2018-04-05 06:41] LABS: ALK PHOS 82 U/L (45-117); BILIRUBIN,TOTAL 0.6 mg/dL (0.2-1.0); CREATININE 0.7 mg/dL (0.7-1.3); SGOT/AST 78 U/L (15-37); SGPT/ALT 77 U/L (12-78); TOT PROT 5.7 g/dl (6.4-8.2)
[2018-04-05 07:23] LABS: ARTERIAL BLD GAS O2 SATURATION 98.9 % (90-98.9); ARTERIAL BLOOD GAS BASE EXCESS -2.1 meq/l (-2-2); ARTERIAL BLOOD GAS PCO2 45.9 mmHg (35-45); ARTERIAL BLOOD GAS pH 7.33 (7.35-7.45)
[2018-04-05 07:29] LABS: ALLENS TEST POSITIVE
[2018-04-05] MEDS: ALBUTEROL SO4 2.5/IPRATROPIUM 0.5 INH SOL 3 ML VIAL.NEB. NEB SCH ×3 (08:10→21:07)
[2018-04-05 08:19] LABS: MAGNESIUM 1.8 mg/dL (1.8-2.4); PHOSPHOROUS 3.2 mg/dL (2.5-4.9)
[2018-04-05] MEDS ORDERED: MUPIROCIN 2% TOPICAL OINTMENT FOR DECOLONIZATION NS SCH (10:00)
[2018-04-05] MEDS: PANTOPRAZOLE SODIUM 40 MG VIAL IVPUSH SCH (11:00)
[2018-04-05] MEDS: THIAMINE HCL 200 MG/2 ML VIAL IVPB SCH (11:00)
[2018-04-05] MEDS ORDERED: PT OWN MED DRAWER 7, Y5N ONE (11:11)
--- NOTE | 2018-04-05 11:53 | PN ---
Teaching Attending Note Name of Resident: Jd Bansal ATTENDING PHYSICIAN STATEMENT I saw and evaluated the patient. I reviewed the resident's note and discussed the case with the resident. I agree with the resident's findings and plan as documented. SUBJECTIVE: Patient seen and examined in the ICU. Intubated and sedated. AC mode of vent 40% FiO2. No presors. ECHO being performed at bedside. CXR: rotated, clear Intake & Output 04/02/18 04/03/18 04/04/18 04/05/18 23:59 23:59 23:59 23:59 Intake Total 395 Output Total 100 400 Balance -100 -5 Weight 198 lb 6.656 oz 172 lb 9.951 oz Last Vital Signs Temp Pulse Resp BP Pulse Ox 99 F 79 16 110/68 100 04/05/18 06:00 04/05/18 08:00 04/05/18 10:37 04/05/18 08:00 04/05/18 09:00 Active Medications Albuterol/Ipratropium (Duoneb -) 1 amp NEB RTID AMANDA Last Admin: 04/05/18 08:10 Dose: 1 amp Chlorhexidine Gluconate (Hibiclens For Decolonization -) 1 applic TP HS AMANDA Heparin Sodium (Porcine) (Heparin -) 5,000 unit SQ TID AMANDA Last Admin: 04/05/18 06:07 Dose: 5,000 unit Propofol (Diprivan -) 1,000,000 mcg in 100 mls @ 5.4 mls/hr IVPB TITR AMANDA; Protocol Last Admin: 04/05/18 03:30 Dose: 10 mcg/kg/min, 5.4 mls/hr Midazolam HCl 100 mg/ Sodium (Chloride) 100 mls @ 1 mls/hr IVPB TITR AMANDA; Protocol Last Admin: 04/05/18 03:31 Dose: 5 mg/hr, 5 mls/hr Dextrose/Sodium Chloride (D5-Ns -) 1,000 mls @ 100 mls/hr IV ASDIR AMANDA Last Admin: 04/05/18 03:29 Dose: 100 mls/hr Mupirocin (Bactroban Ointment (For Decolonization) -) 1 applic NS BID AMANDA Stop: 04/10/18 09:59 Pantoprazole Sodium (Protonix Iv) 40 mg IVPUSH DAILY AMANDA Last Admin: 04/05/18 11:00 Dose: 40 mg Thiamine HCl (Vitamin B1 Injection -) 200 mg IVPB DAILY AMANDA Last Admin: 04/05/18 11:00 Dose: 200 mg GENERAL: Intubated and sedated HEAD: Normal with no signs of trauma. EYES: Pupils equal, round and reactive to light, sclera anicteric, conjunctiva clear. EARS, NOSE, THROAT: ETT intact NECK: Normal range of motion, supple without lymphadenopathy, JVD, or masses. LUNGS: Mechanically ventilated, few scattered rhonchi HEART: Regular rate and rhythm, normal S1 and S2 without murmur, rub or gallop. ABDOMEN: Soft, not distended, normoactive bowel sounds, UPPER EXTREMITIES: 2+ pulses, warm, well-perfused. No cyanosis. No clubbing. LOWER EXTREMITIES: , warm, well-perfused. No peripheral edema. NEUROLOGICAL: sedated SKIN: Warm, dry Laboratory Results - last 24 hr 04/04/18 04/04/18 04/04/18 22:44 22:44 22:44 WBC 12.3 H RBC 4.62 Hgb 15.0 Hct 44.4 MCV 96.3 H MCH 32.4 MCHC 33.7 RDW 13.1 Plt Count 345 D MPV 7.9 Absolute Neuts (auto) 4.4 Neutrophils % 35.5 L D Lymphocytes % 54.6 H D Monocytes % 7.7 Eosinophils % 1.5 D Basophils % 0.7 Nucleated RBC % 0 PT with INR 11.00 INR 0.97 PTT (Actin FS) Anticoagulation Therapy Puncture Site ABG pH ABG pCO2 at Pt Temp ABG pO2 at Pt Temp ABG HCO3 ABG O2 Sat (Measured) ABG O2 Content ABG Base Excess Hay Test Carboxyhemoglobin Methemoglobin O2 Delivery Device Oxygen Flow Rate Vent Mode Vent Rate Mechanical Rate PEEP Pressure Support Vent Sodium 144 Potassium 3.6 Chloride 110 H Carbon Dioxide 17 L D Anion Gap 17 H BUN 15 Creatinine 1.1 Creat Clearance w eGFR > 60 POC Glucometer Random Glucose 139 H D Serum Osmolality Lactic Acid Calcium 8.5 Phosphorus Magnesium Total Bilirubin 0.4 AST 155 H D ALT 97 H Alkaline Phosphatase 102 Ammonia Creatine Kinase 188 Creatine Kinase Index 1.0 CK-MB (CK-2) 1.99 Troponin I < 0.02 Total Protein 7.5 Albumin 4.2 TSH Free T4 Urine Color Urine Appearance Urine pH Ur Specific [place] Urine Protein Urine Glucose (UA) Urine Ketones Urine Blood Urine Nitrite Urine Bilirubin Urine Urobilinogen Ur Leukocyte Esterase Urine WBC (Auto) Urine RBC (Auto) Ur Epithelial Cells Urine Bacteria Hyaline Casts Urine Mucus Opiates Screen Methadone Screen Barbiturate Screen Phencyclidine Screen Ur Amphetamines Screen MDMA (Ecstasy) Screen Benzodiazepines Screen Cocaine Screen U Marijuana (THC) Screen Alcohol, Quantitative Acetone, Qual Blood Type Antibody Screen 04/04/18 04/05/18 04/05/18 22:44 00:30 03:00 WBC RBC Hgb Hct MCV MCH MCHC RDW Plt Count MPV Absolute Neuts (auto) Neutrophils % Lymphocytes % Monocytes % Eosinophils % Basophils % Nucleated RBC % PT with INR INR PTT (Actin FS) Anticoagulation Therapy No Puncture Site Right radial ABG pH 7.24 L* ABG pCO2 at Pt Temp 48.3 H ABG pO2 at Pt Temp 329.0 H* ABG HCO3 19.9 L ABG O2 Sat (Measured) 99.6 H* ABG O2 Content 18.9 ABG Base Excess -7.3 L Hay Test Positive Carboxyhemoglobin 2.5 H Methemoglobin 1.5 O2 Delivery Device Oxygen-vent Oxygen Flow Rate 100% Vent Mode No Result Required. Vent Rate 14 Mechanical Rate No Result Required. PEEP 5.0 Pressure Support Vent No Result Required. Sodium Potassium Chloride Carbon Dioxide Anion Gap BUN Creatinine Creat Clearance w eGFR POC Glucometer Random Glucose Serum Osmolality Lactic Acid Calcium Phosphorus Magnesium Total Bilirubin AST ALT Alkaline Phosphatase Ammonia Creatine Kinase Creatine Kinase Index CK-MB (CK-2) Troponin I Total Protein Albumin TSH Free T4 Urine Color Urine Appearance Urine pH Ur Specific [place] Urine Protein Urine Glucose (UA) Urine Ketones Urine Blood Urine Nitrite Urine Bilirubin Urine Urobilinogen Ur Leukocyte Esterase Urine WBC (Auto) Urine RBC (Auto) Ur Epithelial Cells Urine Bacteria Hyaline Casts Urine Mucus Opiates Screen Methadone Screen Barbiturate Screen Phencyclidine Screen Ur Amphetamines Screen MDMA (Ecstasy) Screen Benzodiazepines Screen Cocaine Screen U Marijuana (THC) Screen Alcohol, Quantitative 45.38 H* Acetone, Qual Blood Type A NEGATIVE Antibody Screen Negative 04/05/18 04/05/18 04/05/18 03:00 03:00 03:00 WBC RBC Hgb Hct MCV MCH MCHC RDW Plt Count MPV Absolute Neuts (auto) Neutrophils % Lymphocytes % Monocytes % Eosinophils % Basophils % Nucleated RBC % PT with INR INR PTT (Actin FS) Anticoagulation Therapy Puncture Site ABG pH ABG pCO2 at Pt Temp ABG pO2 at Pt Temp ABG HCO3 ABG O2 Sat (Measured) ABG O2 Content ABG Base Excess Hay Test Carboxyhemoglobin Methemoglobin O2 Delivery Device Oxygen Flow Rate Vent Mode Vent Rate Mechanical Rate PEEP Pressure Support Vent Sodium Potassium Chloride Carbon Dioxide Anion Gap BUN Creatinine Creat Clearance w eGFR POC Glucometer Random Glucose Serum Osmolality Lactic Acid 2.3 H* Calcium Phosphorus Magnesium Total Bilirubin AST ALT Alkaline Phosphatase Ammonia 47.20 H Creatine Kinase Creatine Kinase Index CK-MB (CK-2) Troponin I Total Protein Albumin TSH 0.33 L Free T4 Urine Color Urine Appearance Urine pH Ur Specific [place] Urine Protein Urine Glucose (UA) Urine Ketones Urine Blood Urine Nitrite Urine Bilirubin Urine Urobilinogen Ur Leukocyte Esterase Urine WBC (Auto) Urine RBC (Auto) Ur Epithelial Cells Urine Bacteria Hyaline Casts Urine Mucus Opiates Screen Methadone Screen Barbiturate Screen Phencyclidine Screen Ur Amphetamines Screen MDMA (Ecstasy) Screen Benzodiazepines Screen Cocaine Screen U Marijuana (THC) Screen Alcohol, Quantitative Acetone, Qual Blood Type Antibody Screen 04/05/18 04/05/18 04/05/18 03:00 03:00 03:00 WBC RBC Hgb Hct MCV MCH MCHC RDW Plt Count MPV Absolute Neuts (auto) Neutrophils % Lymphocytes % Monocytes % Eosinophils % Basophils % Nucleated RBC % PT with INR INR PTT (Actin FS) Anticoagulation Therapy Puncture Site ABG pH ABG pCO2 at Pt Temp ABG pO2 at Pt Temp ABG HCO3 ABG O2 Sat (Measured) ABG O2 Content ABG Base Excess Hay Test Carboxyhemoglobin Methemoglobin O2 Delivery Device Oxygen Flow Rate Vent Mode Vent Rate Mechanical Rate PEEP Pressure Support Vent Sodium Potassium Chloride Carbon Dioxide Anion Gap BUN Creatinine Creat Clearance w eGFR POC Glucometer Random Glucose Serum Osmolality Lactic Acid Calcium Phosphorus Magnesium Total Bilirubin AST ALT Alkaline Phosphatase Ammonia Creatine Kinase Creatine Kinase Index CK-MB (CK-2) Troponin I Total Protein Albumin TSH Free T4 Urine Color Dkyellow Urine Appearance Turbid Urine pH 5.0 Ur Specific [place] 1.023 Urine Protein 2+ H Urine Glucose (UA) Negative Urine Ketones Negative Urine Blood Negative Urine Nitrite Negative Urine Bilirubin Negative Urine Urobilinogen Negative Ur Leukocyte Esterase Negative Urine WBC (Auto) 8 Urine RBC (Auto) 3 Ur Epithelial Cells Rare Urine Bacteria Few Hyaline Casts 2 Urine Mucus Rare Opiates Screen Negative Methadone Screen Negative Barbiturate Screen Negative Phencyclidine Screen Negative Ur Amphetamines Screen Negative MDMA (Ecstasy) Screen Negative Benzodiazepines Screen Positive Cocaine Screen Negative U Marijuana (THC) Screen Negative Alcohol, Quantitative Acetone, Qual Negative Blood Type Antibody Screen 04/05/18 04/05/18 04/05/18 03:00 05:30 05:30 WBC 10.2 H RBC 3.93 L Hgb 13.0 Hct 37.4 D MCV 95.1 MCH 33.1 MCHC 34.8 RDW 12.8 Plt Count 248 D MPV 7.8 Absolute Neuts (auto) 6.3 Neutrophils % 61.1 D Lymphocytes % 27.9 D Monocytes % 9.3 Eosinophils % 1.3 Basophils % 0.4 Nucleated RBC % 0 PT with INR INR PTT (Actin FS) Anticoagulation Therapy Puncture Site ABG pH ABG pCO2 at Pt Temp ABG pO2 at Pt Temp ABG HCO3 ABG O2 Sat (Measured) ABG O2 Content ABG Base Excess Hay Test Carboxyhemoglobin Methemoglobin O2 Delivery Device Oxygen Flow Rate Vent Mode Vent Rate Mechanical Rate PEEP Pressure Support Vent Sodium Cancelled Potassium Cancelled Chloride Cancelled Carbon Dioxide Cancelled Anion Gap Cancelled BUN Cancelled Creatinine Cancelled Creat Clearance w eGFR Cancelled POC Glucometer Random Glucose Cancelled Serum Osmolality 314 H Lactic Acid Calcium Cancelled Phosphorus Cancelled Magnesium Cancelled Total Bilirubin AST ALT Alkaline Phosphatase Ammonia Creatine Kinase Cancelled Creatine Kinase Index CK-MB (CK-2) Troponin I Cancelled Total Protein Albumin TSH Free T4 Urine Color Urine Appearance Urine pH Ur Specific [place] Urine Protein Urine Glucose (UA) Urine Ketones Urine Blood Urine Nitrite Urine Bilirubin Urine Urobilinogen Ur Leukocyte Esterase Urine WBC (Auto) Urine RBC (Auto) Ur Epithelial Cells Urine Bacteria Hyaline Casts Urine Mucus Opiates Screen Methadone Screen Barbiturate Screen Phencyclidine Screen Ur Amphetamines Screen MDMA (Ecstasy) Screen Benzodiazepines Screen Cocaine Screen U Marijuana (THC) Screen Alcohol, Quantitative Acetone, Qual Blood Type Antibody Screen 04/05/18 04/05/18 04/05/18 05:30 05:30 05:30 WBC RBC Hgb Hct MCV MCH MCHC RDW Plt Count MPV Absolute Neuts (auto) Neutrophils % Lymphocytes % Monocytes % Eosinophils % Basophils % Nucleated RBC % PT with INR 12.50 INR 1.11 PTT (Actin FS) 25.7 L Anticoagulation Therapy Puncture Site ABG pH ABG pCO2 at Pt Temp ABG pO2 at Pt Temp ABG HCO3 ABG O2 Sat (Measured) ABG O2 Content ABG Base Excess Hay Test Carboxyhemoglobin Methemoglobin O2 Delivery Device Oxygen Flow Rate Vent Mode Vent Rate Mechanical Rate PEEP Pressure Support Vent Sodium 146 H Potassium 4.0 Chloride 116 H Carbon Dioxide 25 D Anion Gap 5 L BUN 14 Creatinine 0.7 Creat Clearance w eGFR > 60 POC Glucometer Random Glucose 92 D Serum Osmolality Lactic Acid 0.8 Calcium 7.5 L Phosphorus 3.2 D Magnesium 1.8 Total Bilirubin 0.6 AST 78 H D ALT 77 D Alkaline Phosphatase 82 D Ammonia Creatine Kinase 187 Creatine Kinase Index 1.1 CK-MB (CK-2) 2.17 Troponin I 0.02 Total Protein 5.7 L Albumin 3.1 L TSH Free T4 Urine Color Urine Appearance Urine pH Ur Specific [place] Urine Protein Urine Glucose (UA) Urine Ketones Urine Blood Urine Nitrite Urine Bilirubin Urine Urobilinogen Ur Leukocyte Esterase Urine WBC (Auto) Urine RBC (Auto) Ur Epithelial Cells Urine Bacteria Hyaline Casts Urine Mucus Opiates Screen Methadone Screen Barbiturate Screen Phencyclidine Screen Ur Amphetamines Screen MDMA (Ecstasy) Screen Benzodiazepines Screen Cocaine Screen U Marijuana (THC) Screen Alcohol, Quantitative Acetone, Qual Blood Type Antibody Screen 04/05/18 04/05/18 04/05/18 05:30 06:15 06:50 WBC RBC Hgb Hct MCV MCH MCHC RDW Plt Count MPV Absolute Neuts (auto) Neutrophils % Lymphocytes % Monocytes % Eosinophils % Basophils % Nucleated RBC % PT with INR INR PTT (Actin FS) Anticoagulation Therapy Puncture Site Left radial ABG pH 7.33 L ABG pCO2 at Pt Temp 45.9 H ABG pO2 at Pt Temp 126.0 H D ABG HCO3 23.5 ABG O2 Sat (Measured) 98.9 ABG O2 Content 18.6 ABG Base Excess -2.1 L Hay Test Positive Carboxyhemoglobin Methemoglobin O2 Delivery Device Mech vent Oxygen Flow Rate 40% Vent Mode Vent Rate 16 Mechanical Rate Yes PEEP 5.0 Pressure Support Vent 500 Sodium Potassium Chloride Carbon Dioxide Anion Gap BUN Creatinine Creat Clearance w eGFR POC Glucometer [id number] Random Glucose Serum Osmolality Lactic Acid Calcium Phosphorus Magnesium Total Bilirubin AST ALT Alkaline Phosphatase Ammonia Creatine Kinase Creatine Kinase Index CK-MB (CK-2) Troponin I Total Protein Albumin TSH Free T4 0.72 L Urine Color Urine Appearance Urine pH Ur Specific [place] Urine Protein Urine Glucose (UA) Urine Ketones Urine Blood Urine Nitrite Urine Bilirubin Urine Urobilinogen Ur Leukocyte Esterase Urine WBC (Auto) Urine RBC (Auto) Ur Epithelial Cells Urine Bacteria Hyaline Casts Urine Mucus Opiates Screen Methadone Screen Barbiturate Screen Phencyclidine Screen Ur Amphetamines Screen MDMA (Ecstasy) Screen Benzodiazepines Screen Cocaine Screen U Marijuana (THC) Screen Alcohol, Quantitative Acetone, Qual Blood Type Antibody Screen 04/05/18 07:20 WBC RBC Hgb Hct MCV MCH MCHC RDW Plt Count MPV Absolute Neuts (auto) Neutrophils % Lymphocytes % Monocytes % Eosinophils % Basophils % Nucleated RBC % PT with INR INR PTT (Actin FS) Anticoagulation Therapy Puncture Site ABG pH ABG pCO2 at Pt Temp ABG pO2 at Pt Temp ABG HCO3 ABG O2 Sat (Measured) ABG O2 Content ABG Base Excess Hay Test Carboxyhemoglobin Methemoglobin O2 Delivery Device Oxygen Flow Rate Vent Mode Vent Rate Mechanical Rate PEEP Pressure Support Vent Sodium Potassium Chloride Carbon Dioxide Anion Gap BUN Creatinine Creat Clearance w eGFR POC Glucometer Random Glucose Serum Osmolality Lactic Acid Calcium Phosphorus Magnesium Total Bilirubin AST ALT Alkaline Phosphatase Ammonia Creatine Kinase Creatine Kinase Index CK-MB (CK-2) Troponin I Total Protein Albumin TSH Free T4 Urine Color Urine Appearance Urine pH Ur Specific [place] Urine Protein Urine Glucose (UA) Urine Ketones Urine Blood Urine Nitrite Urine Bilirubin Urine Urobilinogen Ur Leukocyte Esterase Urine WBC (Auto) Urine RBC (Auto) Ur Epithelial Cells Urine Bacteria Hyaline Casts Urine Mucus Opiates Screen Methadone Screen Barbiturate Screen Phencyclidine Screen Ur Amphetamines Screen MDMA (Ecstasy) Screen Benzodiazepines Screen Cocaine Screen U Marijuana (THC) Screen Alcohol, Quantitative Acetone, Qual Blood Type A NEGATIVE Antibody Screen ASSESSMENT/PLAN: Acute Respiratory Failure (?) syncope Alcohol / polysubstance abuse Metabolic encephalopathy R/O hepatic encephalopathy Hyperglycemia Abnormal TFTs Transaminitis Plan Wean sedation IVF Thiamine Aspiration precautions Strict I & O Librium protocol once extubated Seizure precaution. VTE prophylaxis ICU monitoring Dr Red Critical care time spent in reviewing chart, evaluating patient and formulating plan - 36 minutes.
[2018-04-05] MEDS: MUPIROCIN 2% TOPICAL OINTMENT FOR DECOLONIZATION NS SCH ×2 (11:58→22:02)
--- NOTE | 2018-04-05 12:04 | PN ---
Progress Note, Physician Chief Complaint: HISTORY OF PRESENT ILLNESS: This is a 53 year old male with a past medical history of syncope, ETOH abuse, JAYLYN, colitis s/p colectomy presented to the ED after syncopal episode. Pt became agonal in ambulance and EMS were bagging pt upon arrival. ED resident reports pt was agonally breathing with entire body stiffening and arching of back, unresponsive to sternal rub. Ativan was given for possible seizure activity and pt was intubated for airway management. Of note pt was seen in the emergency department on 03/25 for syncopal episode. Pt is intubated upon exam, unable to obtain ROS. Called who states that pt had called her around 630 to say that he wasn't feeling well and was leaving work early. He did not come home and she later received a phone call from a friend of his who reported that he passed out in front of work and was being taken to the hospital. She does not know if the patient was drinking today or not. currently seen in ICU today he is intubated and sedated. - Current Medication List Current Medications: Active Medications Albuterol/Ipratropium (Duoneb -) 1 amp NEB RTID COUNT INCLUDES THE [facility] Last Admin: 04/05/18 08:10 Dose: 1 amp Chlorhexidine Gluconate (Hibiclens For Decolonization -) 1 applic TP HS AMANDA Heparin Sodium (Porcine) (Heparin -) 5,000 unit SQ TID COUNT INCLUDES THE [facility] Last Admin: 04/05/18 06:07 Dose: 5,000 unit Propofol (Diprivan -) 1,000,000 mcg in 100 mls @ 5.4 mls/hr IVPB TITR AMANDA; Protocol Last Admin: 04/05/18 03:30 Dose: 10 mcg/kg/min, 5.4 mls/hr Midazolam HCl 100 mg/ Sodium (Chloride) 100 mls @ 1 mls/hr IVPB TITR AMANDA; Protocol Last Admin: 04/05/18 03:31 Dose: 5 mg/hr, 5 mls/hr Dextrose/Sodium Chloride (D5-Ns -) 1,000 mls @ 100 mls/hr IV ASDIR COUNT INCLUDES THE [facility] Last Admin: 04/05/18 03:29 Dose: 100 mls/hr Mupirocin (Bactroban Ointment (For Decolonization) -) 1 applic NS BID COUNT INCLUDES THE [facility] Stop: 04/10/18 09:59 Pantoprazole Sodium (Protonix Iv) 40 mg IVPUSH DAILY COUNT INCLUDES THE [facility] Last Admin: 04/05/18 11:00 Dose: 40 mg Thiamine HCl (Vitamin B1 Injection -) 200 mg IVPB DAILY COUNT INCLUDES THE [facility] Last Admin: 04/05/18 11:00 Dose: 200 mg - Objective Vital Signs: Vital Signs Temperature 99 F 04/05/18 06:00 Pulse Rate 79 04/05/18 08:00 Respiratory Rate 16 04/05/18 10:37 Blood Pressure 110/68 04/05/18 08:00 O2 Sat by Pulse Oximetry (%) 100 04/05/18 09:00 Constitutional: Yes: Calm Cardiovascular: Yes: Regular Rate and Rhythm, S1, S2 Respiratory: Yes: Mechanically Ventilated Gastrointestinal: Yes: Normal Bowel Sounds, Soft Extremities: Yes: Other (warm palpable pulses) Edema: No Neurological: Yes: Other (sedated and intubated) Labs: CBC, BMP 04/05/18 05:30 04/05/18 05:30 INR, PTT INR 1.11 (0.82-1.09) 04/05/18 05:30 Problem List - Problems (1) Altered mental status Assessment/Plan: neurology eval thiamine maybe related to alcohol Code(s): R41.82 - ALTERED MENTAL STATUS, UNSPECIFIED (2) Acute respiratory failure Assessment/Plan: sedated and intubated- unclear etiology of acute respiratory failure and syncope - maybe alcohol related alcohol level noted thiamine aspiration precautions echo done gi /dvt ppx l Code(s): J96.00 - ACUTE RESPIRATORY FAILURE, UNSP W HYPOXIA OR HYPERCAPNIA (3) Transaminitis Assessment/Plan: lft trending down- maybe alcohol related mild fatty infiltration of liver- seen on ultrasound Code(s): R74.0 - NONSPEC ELEV OF LEVELS OF TRANSAMNS & LACTIC ACID DEHYDRGNSE
--- NOTE | 2018-04-05 13:26 | ECHO ---
Name: NATIVIDAD HERRERA Exam:Adult Echocardiogram Study Date: 04/05/2018 10:42 AM Age: 53 yrs Reason For Study: SYNCOPE Height: 70 in Weight: 198 lb BSA: 2.1 m2 BP: 105/66 mmHg MMode/2D Measurements & Calculations IVSd: 0.71 cm Ao root diam: 3.4 cm LVIDd: 5.2 cm LA dimension: 3.3 cm LVIDs: 3.3 cm LVPWd: 0.88 cm EDV(Teich): 130.5 ml TAPSE: 0.99 cm ESV(Teich): 45.2 ml RV S Kraig: 10.6 cm/sec Doppler Measurements & Calculations MV E max kraig: 86.4 cm/sec TR max kraig: 188.2 cm/sec MV A max kraig: 76.0 cm/sec TR max P.2 mmHg MV E/A: 1.1 MV dec time: 0.19 sec Med Peak E' Kraig: 10.2 cm/sec Med E/e': 8.4 Lat Peak E' Kraig: 10.6 cm/sec Lat E/e': 8.1 Procedure The study was technically difficult with many images being suboptimal in quality. Left Ventricle Left ventricular systolic function is grossly normal. Right Ventricle The right ventricle is grossly normal size. The right ventricular systolic function is grossly normal . Atria Normal left and right atrial size and function. Mitral Valve The mitral valve is normal in structure and function. There is no mitral valve stenosis. There is tra ce to mild mitral regurgitation. Tricuspid Valve The tricuspid valve is not well visualized, but is grossly normal. There is Trace to mild tricuspid regurgitation. Aortic Valve The aortic valve opens well. No hemodynamically significant valvular aortic stenosis. No aortic regur gitation is present. Pulmonic Valve The pulmonic valve is not well seen, but is grossly normal. There is no pulmonic valvular stenosis. T here is no pulmonic valvular regurgitation. Great Vessels The aortic root is normal size. Pericardium/Pleura There is no pericardial effusion. Interpretation Summary Left ventricular systolic function is grossly normal. There is trace to mild mitral regurgitation. There is Trace to mild tricuspid regurgitation. There is no pericardial effusion. MD Adeel Magallanes 04/05/2018 01:26 PM
--- NOTE | 2018-04-05 14:26 | PN ---
Physical Exam: SUBJECTIVE: Patient seen and examined in the ICU. Appears comfortable, on sedation, but arousable on exam, and can respond via nodding head. Also follows commands appropriately. OBJECTIVE: Vital Signs Period Temp Pulse Resp BP Sys/Bautista Pulse Ox Last 24 Hr 97.6 F-99.2 F 72-131 14-16 92-126/59-77 90-100 GENERAL: The patient is intubated and sedated, in no acute distress. HEAD: Normocephalic, abrasion on right forehead above the eyebrow EYES: PERRL, sclera anicteric, conjunctiva clear. No ptosis. ENT: ET tube removed, Ears normal, nares patent, oropharynx clear without exudates, moist mucous membranes. NECK: Trachea midline, full range of motion, supple. LUNGS: Breath sounds equal, clear to auscultation bilaterally, no wheezes, no crackles, no accessory muscle use. HEART: Regular rate and rhythm, S1, S2 without murmur, rub or gallop. ABDOMEN: Soft, nontender, nondistended, normoactive bowel sounds, no guarding, no rebound, no hepatosplenomegaly, no masses. EXTREMITIES: 2+ pulses, warm, well-perfused, no edema. NEUROLOGICAL: sedated, but still follows commands well and nods to questioning. gait not observed. SKIN: Warm, dry, normal turgor, no rashes or lesions noted Laboratory Results - last 24 hr 04/04/18 04/04/18 04/04/18 22:44 22:44 22:44 WBC 12.3 H RBC 4.62 Hgb 15.0 Hct 44.4 MCV 96.3 H MCH 32.4 MCHC 33.7 RDW 13.1 Plt Count 345 D MPV 7.9 Absolute Neuts (auto) 4.4 Neutrophils % 35.5 L D Lymphocytes % 54.6 H D Monocytes % 7.7 Eosinophils % 1.5 D Basophils % 0.7 Nucleated RBC % 0 PT with INR 11.00 INR 0.97 PTT (Actin FS) Anticoagulation Therapy Puncture Site ABG pH ABG pCO2 at Pt Temp ABG pO2 at Pt Temp ABG HCO3 ABG O2 Sat (Measured) ABG O2 Content ABG Base Excess Hay Test Carboxyhemoglobin Methemoglobin O2 Delivery Device Oxygen Flow Rate Vent Mode Vent Rate Mechanical Rate PEEP Pressure Support Vent Sodium 144 Potassium 3.6 Chloride 110 H Carbon Dioxide 17 L D Anion Gap 17 H BUN 15 Creatinine 1.1 Creat Clearance w eGFR > 60 POC Glucometer Random Glucose 139 H D Serum Osmolality Lactic Acid Calcium 8.5 Phosphorus Magnesium Total Bilirubin 0.4 AST 155 H D ALT 97 H Alkaline Phosphatase 102 Ammonia Creatine Kinase 188 Creatine Kinase Index 1.0 CK-MB (CK-2) 1.99 Troponin I < 0.02 Total Protein 7.5 Albumin 4.2 Vitamin B12 TSH Free T4 Urine Color Urine Appearance Urine pH Ur Specific Lotus Urine Protein Urine Glucose (UA) Urine Ketones Urine Blood Urine Nitrite Urine Bilirubin Urine Urobilinogen Ur Leukocyte Esterase Urine WBC (Auto) Urine RBC (Auto) Ur Epithelial Cells Urine Bacteria Hyaline Casts Urine Mucus Opiates Screen Methadone Screen Barbiturate Screen Phencyclidine Screen Ur Amphetamines Screen MDMA (Ecstasy) Screen Benzodiazepines Screen Cocaine Screen U Marijuana (THC) Screen Alcohol, Quantitative Acetone, Qual Blood Type Antibody Screen 04/04/18 04/05/18 04/05/18 22:44 00:30 03:00 WBC RBC Hgb Hct MCV MCH MCHC RDW Plt Count MPV Absolute Neuts (auto) Neutrophils % Lymphocytes % Monocytes % Eosinophils % Basophils % Nucleated RBC % PT with INR INR PTT (Actin FS) Anticoagulation Therapy No Puncture Site Right radial ABG pH 7.24 L* ABG pCO2 at Pt Temp 48.3 H ABG pO2 at Pt Temp 329.0 H* ABG HCO3 19.9 L ABG O2 Sat (Measured) 99.6 H* ABG O2 Content 18.9 ABG Base Excess -7.3 L Hay Test Positive Carboxyhemoglobin 2.5 H Methemoglobin 1.5 O2 Delivery Device Oxygen-vent Oxygen Flow Rate 100% Vent Mode No Result Required. Vent Rate 14 Mechanical Rate No Result Required. PEEP 5.0 Pressure Support Vent No Result Required. Sodium Potassium Chloride Carbon Dioxide Anion Gap BUN Creatinine Creat Clearance w eGFR POC Glucometer Random Glucose Serum Osmolality Lactic Acid Calcium Phosphorus Magnesium Total Bilirubin AST ALT Alkaline Phosphatase Ammonia Creatine Kinase Creatine Kinase Index CK-MB (CK-2) Troponin I Total Protein Albumin Vitamin B12 TSH Free T4 Urine Color Urine Appearance Urine pH Ur Specific Lotus Urine Protein Urine Glucose (UA) Urine Ketones Urine Blood Urine Nitrite Urine Bilirubin Urine Urobilinogen Ur Leukocyte Esterase Urine WBC (Auto) Urine RBC (Auto) Ur Epithelial Cells Urine Bacteria Hyaline Casts Urine Mucus Opiates Screen Methadone Screen Barbiturate Screen Phencyclidine Screen Ur Amphetamines Screen MDMA (Ecstasy) Screen Benzodiazepines Screen Cocaine Screen U Marijuana (THC) Screen Alcohol, Quantitative 45.38 H* Acetone, Qual Blood Type A NEGATIVE Antibody Screen Negative 04/05/18 04/05/18 04/05/18 03:00 03:00 03:00 WBC RBC Hgb Hct MCV MCH MCHC RDW Plt Count MPV Absolute Neuts (auto) Neutrophils % Lymphocytes % Monocytes % Eosinophils % Basophils % Nucleated RBC % PT with INR INR PTT (Actin FS) Anticoagulation Therapy Puncture Site ABG pH ABG pCO2 at Pt Temp ABG pO2 at Pt Temp ABG HCO3 ABG O2 Sat (Measured) ABG O2 Content ABG Base Excess Hay Test Carboxyhemoglobin Methemoglobin O2 Delivery Device Oxygen Flow Rate Vent Mode Vent Rate Mechanical Rate PEEP Pressure Support Vent Sodium Potassium Chloride Carbon Dioxide Anion Gap BUN Creatinine Creat Clearance w eGFR POC Glucometer Random Glucose Serum Osmolality Lactic Acid 2.3 H* Calcium Phosphorus Magnesium Total Bilirubin AST ALT Alkaline Phosphatase Ammonia 47.20 H Creatine Kinase Creatine Kinase Index CK-MB (CK-2) Troponin I Total Protein Albumin Vitamin B12 TSH 0.33 L Free T4 Urine Color Urine Appearance Urine pH Ur Specific Lotus Urine Protein Urine Glucose (UA) Urine Ketones Urine Blood Urine Nitrite Urine Bilirubin Urine Urobilinogen Ur Leukocyte Esterase Urine WBC (Auto) Urine RBC (Auto) Ur Epithelial Cells Urine Bacteria Hyaline Casts Urine Mucus Opiates Screen Methadone Screen Barbiturate Screen Phencyclidine Screen Ur Amphetamines Screen MDMA (Ecstasy) Screen Benzodiazepines Screen Cocaine Screen U Marijuana (THC) Screen Alcohol, Quantitative Acetone, Qual Blood Type Antibody Screen 04/05/18 04/05/18 04/05/18 03:00 03:00 03:00 WBC RBC Hgb Hct MCV MCH MCHC RDW Plt Count MPV Absolute Neuts (auto) Neutrophils % Lymphocytes % Monocytes % Eosinophils % Basophils % Nucleated RBC % PT with INR INR PTT (Actin FS) Anticoagulation Therapy Puncture Site ABG pH ABG pCO2 at Pt Temp ABG pO2 at Pt Temp ABG HCO3 ABG O2 Sat (Measured) ABG O2 Content ABG Base Excess Hay Test Carboxyhemoglobin Methemoglobin O2 Delivery Device Oxygen Flow Rate Vent Mode Vent Rate Mechanical Rate PEEP Pressure Support Vent Sodium Potassium Chloride Carbon Dioxide Anion Gap BUN Creatinine Creat Clearance w eGFR POC Glucometer Random Glucose Serum Osmolality Lactic Acid Calcium Phosphorus Magnesium Total Bilirubin AST ALT Alkaline Phosphatase Ammonia Creatine Kinase Creatine Kinase Index CK-MB (CK-2) Troponin I Total Protein Albumin Vitamin B12 TSH Free T4 Urine Color Dkyellow Urine Appearance Turbid Urine pH 5.0 Ur Specific Lotus 1.023 Urine Protein 2+ H Urine Glucose (UA) Negative Urine Ketones Negative Urine Blood Negative Urine Nitrite Negative Urine Bilirubin Negative Urine Urobilinogen Negative Ur Leukocyte Esterase Negative Urine WBC (Auto) 8 Urine RBC (Auto) 3 Ur Epithelial Cells Rare Urine Bacteria Few Hyaline Casts 2 Urine Mucus Rare Opiates Screen Negative Methadone Screen Negative Barbiturate Screen Negative Phencyclidine Screen Negative Ur Amphetamines Screen Negative MDMA (Ecstasy) Screen Negative Benzodiazepines Screen Positive Cocaine Screen Negative U Marijuana (THC) Screen Negative Alcohol, Quantitative Acetone, Qual Negative Blood Type Antibody Screen 04/05/18 04/05/18 04/05/18 03:00 05:30 05:30 WBC 10.2 H RBC 3.93 L Hgb 13.0 Hct 37.4 D MCV 95.1 MCH 33.1 MCHC 34.8 RDW 12.8 Plt Count 248 D MPV 7.8 Absolute Neuts (auto) 6.3 Neutrophils % 61.1 D Lymphocytes % 27.9 D Monocytes % 9.3 Eosinophils % 1.3 Basophils % 0.4 Nucleated RBC % 0 PT with INR INR PTT (Actin FS) Anticoagulation Therapy Puncture Site ABG pH ABG pCO2 at Pt Temp ABG pO2 at Pt Temp ABG HCO3 ABG O2 Sat (Measured) ABG O2 Content ABG Base Excess Hay Test Carboxyhemoglobin Methemoglobin O2 Delivery Device Oxygen Flow Rate Vent Mode Vent Rate Mechanical Rate PEEP Pressure Support Vent Sodium Cancelled Potassium Cancelled Chloride Cancelled Carbon Dioxide Cancelled Anion Gap Cancelled BUN Cancelled Creatinine Cancelled Creat Clearance w eGFR Cancelled POC Glucometer Random Glucose Cancelled Serum Osmolality 314 H Lactic Acid Calcium Cancelled Phosphorus Cancelled Magnesium Cancelled Total Bilirubin AST ALT Alkaline Phosphatase Ammonia Creatine Kinase Cancelled Creatine Kinase Index CK-MB (CK-2) Troponin I Cancelled Total Protein Albumin Vitamin B12 TSH Free T4 Urine Color Urine Appearance Urine pH Ur Specific Lotus Urine Protein Urine Glucose (UA) Urine Ketones Urine Blood Urine Nitrite Urine Bilirubin Urine Urobilinogen Ur Leukocyte Esterase Urine WBC (Auto) Urine RBC (Auto) Ur Epithelial Cells Urine Bacteria Hyaline Casts Urine Mucus Opiates Screen Methadone Screen Barbiturate Screen Phencyclidine Screen Ur Amphetamines Screen MDMA (Ecstasy) Screen Benzodiazepines Screen Cocaine Screen U Marijuana (THC) Screen Alcohol, Quantitative Acetone, Qual Blood Type Antibody Screen 04/05/18 04/05/18 04/05/18 05:30 05:30 05:30 WBC RBC Hgb Hct MCV MCH MCHC RDW Plt Count MPV Absolute Neuts (auto) Neutrophils % Lymphocytes % Monocytes % Eosinophils % Basophils % Nucleated RBC % PT with INR 12.50 INR 1.11 PTT (Actin FS) 25.7 L Anticoagulation Therapy Puncture Site ABG pH ABG pCO2 at Pt Temp ABG pO2 at Pt Temp ABG HCO3 ABG O2 Sat (Measured) ABG O2 Content ABG Base Excess Hay Test Carboxyhemoglobin Methemoglobin O2 Delivery Device Oxygen Flow Rate Vent Mode Vent Rate Mechanical Rate PEEP Pressure Support Vent Sodium 146 H Potassium 4.0 Chloride 116 H Carbon Dioxide 25 D Anion Gap 5 L BUN 14 Creatinine 0.7 Creat Clearance w eGFR > 60 POC Glucometer Random Glucose 92 D Serum Osmolality Lactic Acid 0.8 Calcium 7.5 L Phosphorus 3.2 D Magnesium 1.8 Total Bilirubin 0.6 AST 78 H D ALT 77 D Alkaline Phosphatase 82 D Ammonia Creatine Kinase 187 Creatine Kinase Index 1.1 CK-MB (CK-2) 2.17 Troponin I 0.02 Total Protein 5.7 L Albumin 3.1 L Vitamin B12 TSH Free T4 Urine Color Urine Appearance Urine pH Ur Specific Lotus Urine Protein Urine Glucose (UA) Urine Ketones Urine Blood Urine Nitrite Urine Bilirubin Urine Urobilinogen Ur Leukocyte Esterase Urine WBC (Auto) Urine RBC (Auto) Ur Epithelial Cells Urine Bacteria Hyaline Casts Urine Mucus Opiates Screen Methadone Screen Barbiturate Screen Phencyclidine Screen Ur Amphetamines Screen MDMA (Ecstasy) Screen Benzodiazepines Screen Cocaine Screen U Marijuana (THC) Screen Alcohol, Quantitative Acetone, Qual Blood Type Antibody Screen 04/05/18 04/05/18 04/05/18 05:30 06:15 06:50 WBC RBC Hgb Hct MCV MCH MCHC RDW Plt Count MPV Absolute Neuts (auto) Neutrophils % Lymphocytes % Monocytes % Eosinophils % Basophils % Nucleated RBC % PT with INR INR PTT (Actin FS) Anticoagulation Therapy Puncture Site Left radial ABG pH 7.33 L ABG pCO2 at Pt Temp 45.9 H ABG pO2 at Pt Temp 126.0 H D ABG HCO3 23.5 ABG O2 Sat (Measured) 98.9 ABG O2 Content 18.6 ABG Base Excess -2.1 L Hay Test Positive Carboxyhemoglobin Methemoglobin O2 Delivery Device Mech vent Oxygen Flow Rate 40% Vent Mode Vent Rate 16 Mechanical Rate Yes PEEP 5.0 Pressure Support Vent 500 Sodium Potassium Chloride Carbon Dioxide Anion Gap BUN Creatinine Creat Clearance w eGFR POC Glucometer [id number] Random Glucose Serum Osmolality Lactic Acid Calcium Phosphorus Magnesium Total Bilirubin AST ALT Alkaline Phosphatase Ammonia Creatine Kinase Creatine Kinase Index CK-MB (CK-2) Troponin I Total Protein Albumin Vitamin B12 TSH Free T4 0.72 L Urine Color Urine Appearance Urine pH Ur Specific Lotus Urine Protein Urine Glucose (UA) Urine Ketones Urine Blood Urine Nitrite Urine Bilirubin Urine Urobilinogen Ur Leukocyte Esterase Urine WBC (Auto) Urine RBC (Auto) Ur Epithelial Cells Urine Bacteria Hyaline Casts Urine Mucus Opiates Screen Methadone Screen Barbiturate Screen Phencyclidine Screen Ur Amphetamines Screen MDMA (Ecstasy) Screen Benzodiazepines Screen Cocaine Screen U Marijuana (THC) Screen Alcohol, Quantitative Acetone, Qual Blood Type Antibody Screen 04/05/18 04/05/18 04/05/18 07:20 12:17 12:40 WBC RBC Hgb Hct MCV MCH MCHC RDW Plt Count MPV Absolute Neuts (auto) Neutrophils % Lymphocytes % Monocytes % Eosinophils % Basophils % Nucleated RBC % PT with INR INR PTT (Actin FS) Anticoagulation Therapy Puncture Site ABG pH ABG pCO2 at Pt Temp ABG pO2 at Pt Temp ABG HCO3 ABG O2 Sat (Measured) ABG O2 Content ABG Base Excess Hay Test Carboxyhemoglobin Methemoglobin O2 Delivery Device Oxygen Flow Rate Vent Mode Vent Rate Mechanical Rate PEEP Pressure Support Vent Sodium Potassium Chloride Carbon Dioxide Anion Gap BUN Creatinine Creat Clearance w eGFR POC Glucometer 90.02134 Random Glucose Serum Osmolality Lactic Acid Calcium Phosphorus Magnesium Total Bilirubin AST ALT Alkaline Phosphatase Ammonia Creatine Kinase 475 H Creatine Kinase Index 1.6 CK-MB (CK-2) 8.02 H Troponin I 0.03 D Total Protein Albumin Vitamin B12 411 TSH Free T4 Urine Color Urine Appearance Urine pH Ur Specific Lotus Urine Protein Urine Glucose (UA) Urine Ketones Urine Blood Urine Nitrite Urine Bilirubin Urine Urobilinogen Ur Leukocyte Esterase Urine WBC (Auto) Urine RBC (Auto) Ur Epithelial Cells Urine Bacteria Hyaline Casts Urine Mucus Opiates Screen Methadone Screen Barbiturate Screen Phencyclidine Screen Ur Amphetamines Screen MDMA (Ecstasy) Screen Benzodiazepines Screen Cocaine Screen U Marijuana (THC) Screen Alcohol, Quantitative Acetone, Qual Blood Type A NEGATIVE Antibody Screen Active Medications Generic Name Dose Route Start Last Admin Trade Name Frealexandre PRN Reason Stop Dose Admin Albuterol/Ipratropium 1 amp 04/05/18 08:00 04/05/18 08:10 Duoneb - NEB 1 amp RTID AMANDA Administration Chlorhexidine Gluconate 1 applic 04/05/18 22:00 Hibiclens For Decolonization - TP HS AMANDA Heparin Sodium (Porcine) 5,000 unit 04/05/18 06:00 04/05/18 06:07 Heparin - SQ 5,000 unit TID AMANDA Administration Propofol 1,000,000 mcg in 100 mls @ 5.4 mls/hr 04/04/18 23:00 04/05/18 03:30 Diprivan - IVPB 10 mcg/kg/min TITR AMANDA 5.4 mls/hr Administration Protocol 10 MCG/KG/MIN Midazolam HCl 100 mg/ Sodium 100 mls @ 1 mls/hr 04/04/18 23:15 04/05/18 13:29 Chloride IVPB 0 mg/hr TITR AMANDA 0 mls/hr Titration Protocol 1 MG/HR Dextrose/Sodium Chloride 1,000 mls @ 100 mls/hr 04/05/18 01:15 04/05/18 03:29 D5-Ns - IV 100 mls/hr ASDIR AMANDA Administration Mupirocin 1 applic 04/05/18 10:00 04/05/18 11:58 Bactroban Ointment (For Decolonization) - NS 04/10/18 09:59 1 applic BID AMANDA Administration Pantoprazole Sodium 40 mg 04/05/18 10:00 04/05/18 11:00 Protonix Iv IVPUSH 40 mg DAILY AMANDA Administration Thiamine HCl 200 mg 04/05/18 10:00 04/05/18 11:00 Vitamin B1 Injection - IVPB 200 mg DAILY AMANDA Administration ASSESSMENT/PLAN: 53 yo male admitted to the ICU after a syncopal episode, followed by acute respiratory failure in the ED. Neuro -Sedation discontinued, pt was able to follow commands appropriately -Recent history of loss of consciousness, dDX includes seizure caused by EtOH withdrawal Sedated on versed, will start librium now that versed has been discontinued Cardio -No acute cardio issues at this time -No acute pathology noted on echo Respiratory -Acute respiratory failure required ET intubation Pt weaned and successfully extubated this afternoon to ventimask 40% GI -Acute transaminitis on admission AST: 155 -> 78 ALT: 97 -> 77 -resolving, most likely due to chronic alcohol consumption Renal -No acute renal insufficiency EtOH Abuse -Librium taper started -Thiamine 200mg IV Daily -Detox/Rehab consult placed DVT Prophylaxis -Heparin 5000 units SQ TID FEN -Fluids: D5 NS @ 100 cc/hr -Electrolytes: No electrolyte abnormalities currently, follow BMP -Nutrition: NPO will advance diet as tolerated Disposition Monitor in the ICU Problem List - Problems (1) Respiratory distress Code(s): R06.03 - ACUTE RESPIRATORY DISTRESS (2) Acute hypoxemic respiratory failure Code(s): J96.01 - ACUTE RESPIRATORY FAILURE WITH HYPOXIA (3) ETOH abuse Code(s): F10.10 - ALCOHOL ABUSE, UNCOMPLICATED (4) Elevated liver enzymes Code(s): R74.8 - ABNORMAL LEVELS OF OTHER SERUM ENZYMES (5) Syncope and collapse Code(s): R55 - SYNCOPE AND COLLAPSE Visit type - Emergency Visit Emergency Visit: Yes ED Registration Date: 04/05/18 Care time: The patient presented to the Emergency Department on the above date and was hospitalized for further evaluation of their emergent condition. - New Patient This patient is new to me today: Yes Date on this admission: 04/05/18 - Critical Care Critical Care patient: Yes Total Critical Care Time (in minutes): 45 Critical Care Statement: The care of this patient involved high complexity decision making to prevent further life threatening deterioration of the patient 's condition and/or to evaluate & treat vital organ system(s) failure or risk of failure.
[2018-04-05] MEDS ORDERED: chlordiazePOXIDE HCL 25 MG CAPSULE PO PRN (14:46)
[2018-04-05] MEDS: chlordiazePOXIDE HCL 25 MG CAPSULE PO SCH ×2 (17:39→22:21)
[2018-04-05] MEDS ORDERED: CHLORHEXIDINE GLUCONATE 4% CLEANSER FOR DECOLONIZATION TP SCH ×2 (22:00)
[2018-04-06] MEDS: DEXTROSE 5%-NORMAL SALINE 1,000 ML IV SCH ×2 (04:00→17:27)
[2018-04-06 06:09] LABS: BASO % 0.6 % (0-2.0); EOS % 1.3 % (0-4.5); HEMATOCRIT 37.2 % (35.4-49); HEMOGLOBIN 12.7 GM/dL (11.7-16.9); MCH 32.9 pg (25.7-33.7); MCHC 34.3 g/dl (32.0-35.9); MEAN CELL VOLUME 95.8 fl (80-96); MEAN PLT VOLUME 8.2 fl (7.5-11.1); MONO % 9.8 % (3.8-10.2); NEUT % 66.3 % (42.8-82.8); PLATELET COUNT 225 K/MM3 (134-434); RBC 3.88 M/mm3 (4.00-5.60); RDW 13.1 % (11.9-15.9); WHITE BLOOD COUNT 12.3 K/mm3 (4.0-10.0)
[2018-04-06] MEDS: HEPARIN NA (PORCINE) 5,000 UNITS/ML 1ML VIAL SQ SCH ×3 (06:19→22:43)
[2018-04-06] MEDS: chlordiazePOXIDE HCL 25 MG CAPSULE PO SCH ×4 (06:20→22:43)
[2018-04-06 06:28] LABS: CHLORIDE 114 mmol/L (98-107); POTASSIUM 3.7 mmol/L (3.5-5.1); SODIUM 141 mmol/L (136-145)
[2018-04-06 06:38] LABS: ALBUMIN 2.8 g/dl (3.4-5.0); ALK PHOS 80 U/L (45-117); ANION GAP 1 (8-16); BILIRUBIN,TOTAL 1.2 mg/dL (0.2-1.0); BLOOD UREA NITROGEN 9 mg/dL (7-18); CALCIUM 7.6 mg/dL (8.5-10.1); CO2 26 mmol/L (21-32); CREATININE 0.6 mg/dL (0.7-1.3); GLUCOSE,RANDOM 97 mg/dL (74-106); MAGNESIUM 1.9 mg/dL (1.8-2.4); PHOSPHOROUS 3.1 mg/dL (2.5-4.9); SGOT/AST 46 U/L (15-37); SGPT/ALT 52 U/L (12-78); TOT PROT 5.4 g/dl (6.4-8.2)
[2018-04-06] MEDS: ALBUTEROL SO4 2.5/IPRATROPIUM 0.5 INH SOL 3 ML VIAL.NEB. NEB SCH ×3 (08:13→20:31)
--- NOTE | 2018-04-06 09:48 | PN ---
Progress Note, Physician - Current Medication List Current Medications: Active Medications Albuterol/Ipratropium (Duoneb -) 1 amp NEB RTID [facility] Last Admin: 04/06/18 08:13 Dose: 1 amp Chlordiazepoxide HCl (Librium -) 50 mg PO [id number] [facility] Stop: 04/06/18 11:01 Last Admin: 04/06/18 06:20 Dose: 50 mg Chlordiazepoxide HCl (Librium -) 25 mg PO [id number] [facility]AN[facility] Stop: 04/07/18 11:01 Chlordiazepoxide HCl (Librium -) 15 mg PO [id number] AMAN[facility] Stop: 04/08/18 11:01 Chlordiazepoxide HCl (Librium -) 25 mg PO Q4H PRN PRN Reason: WITHDRAWAL(CONT SUBST) Stop: 04/08/18 14:45 Chlordiazepoxide HCl (Librium -) 10 mg PO [id number] [facility] Stop: 04/09/18 11:01 Chlorhexidine Gluconate (Hibiclens For Decolonization -) 1 applic TP HS [facility] Last Admin: 04/05/18 22:03 Dose: 1 applic Heparin Sodium (Porcine) (Heparin -) 5,000 unit SQ TID [facility] Last Admin: 04/06/18 06:19 Dose: 5,000 unit Dextrose/Sodium Chloride (D5-Ns -) 1,000 mls @ 100 mls/hr IV ASDIR [facility] Last Admin: 04/06/18 04:00 Dose: 100 mls/hr Mupirocin (Bactroban Ointment (For Decolonization) -) 1 applic NS BID [facility] Stop: 04/10/18 09:59 Last Admin: 04/05/18 22:02 Dose: 1 applic Pantoprazole Sodium (Protonix Iv) 40 mg IVPUSH DAILY [facility] Last Admin: 04/05/18 11:00 Dose: 40 mg Thiamine HCl (Vitamin B1 Injection -) 200 mg IVPB DAILY [facility] Last Admin: 04/05/18 11:00 Dose: 200 mg - Objective Vital Signs: Vital Signs Temperature 98.6 F 04/06/18 06:00 Pulse Rate 72 04/06/18 06:00 Respiratory Rate 17 04/06/18 06:00 Blood Pressure 115/76 04/06/18 06:00 O2 Sat by Pulse Oximetry (%) 100 04/05/18 21:00 Labs: CBC, BMP 04/06/18 05:30 04/06/18 05:30 INR, PTT INR 1.11 (0.82-1.09) 04/05/18 05:30 Problem List - Problems (1) Substance abuse Code(s): F19.10 - OTHER PSYCHOACTIVE SUBSTANCE ABUSE, UNCOMPLICATED (2) Acute respiratory failure Assessment/Plan: -extubated alcohol level noted thiamine aspiration precautions echo done gi /dvt ppx l Code(s): J96.00 - ACUTE RESPIRATORY FAILURE, UNSP W HYPOXIA OR HYPERCAPNIA (3) ETOH abuse Assessment/Plan: -librium protocol Code(s): F10.10 - ALCOHOL ABUSE, UNCOMPLICATED
[2018-04-06] MEDS: THIAMINE HCL 200 MG/2 ML VIAL IVPB SCH (10:00)
[2018-04-06] MEDS: MUPIROCIN 2% TOPICAL OINTMENT FOR DECOLONIZATION NS SCH (10:00)
--- NOTE | 2018-04-06 10:22 | PN ---
Teaching Attending Note Name of Resident: Antonio Posada ATTENDING PHYSICIAN STATEMENT I saw and evaluated the patient. I reviewed the resident's note and discussed the case with the resident. I agree with the resident's findings and plan as documented. SUBJECTIVE: Pt seen and examined in the ICU. No overnight events. Denies shortness of breath or chest pain. Tolerating PO. OBJECTIVE: Vital Signs Period Temp Pulse Resp BP Sys/Bautista Pulse Ox Last 24 Hr 98.4 F-99.6 F 72-96 13-18 107-140/66-82 100-100 Intake & Output 04/03/18 04/04/18 04/05/18 04/06/18 23:59 23:59 23:59 23:59 Intake Total 2396.4 1100 Output Total 100 1450 600 Balance -100 946.4 500 Weight 90 kg 78.3 kg 78.29 kg Gen: somnolent but arousable Heart: RRR Lung: decreased breath sounds at the bases Abd: soft, nontender Ext: no edema CBC, BMP 04/06/18 05:30 04/06/18 05:30 Active Medications Albuterol/Ipratropium (Duoneb -) 1 amp NEB RTID [facility] Last Admin: 04/06/18 08:13 Dose: 1 amp Chlordiazepoxide HCl (Librium -) 50 mg PO [id number] [facility] Stop: 04/06/18 11:01 Last Admin: 04/06/18 06:20 Dose: 50 mg Chlordiazepoxide HCl (Librium -) 25 mg PO [id number] [facility] Stop: 04/07/18 11:01 Chlordiazepoxide HCl (Librium -) 15 mg PO [id number] [facility] Stop: 04/08/18 11:01 Chlordiazepoxide HCl (Librium -) 25 mg PO Q4H PRN PRN Reason: WITHDRAWAL(CONT SUBST) Stop: 04/08/18 14:45 Chlordiazepoxide HCl (Librium -) 10 mg PO [id number] [facility] Stop: 04/09/18 11:01 Chlorhexidine Gluconate (Hibiclens For Decolonization -) 1 applic TP HS [facility] Last Admin: 04/05/18 22:03 Dose: 1 applic Heparin Sodium (Porcine) (Heparin -) 5,000 unit SQ TID [facility] Last Admin: 04/06/18 06:19 Dose: 5,000 unit Dextrose/Sodium Chloride (D5-Ns -) 1,000 mls @ 100 mls/hr IV ASDIR [facility] Last Admin: 04/06/18 04:00 Dose: 100 mls/hr Mupirocin (Bactroban Ointment (For Decolonization) -) 1 applic NS BID [facility] Stop: 04/10/18 09:59 Last Admin: 04/05/18 22:02 Dose: 1 applic Pantoprazole Sodium (Protonix Iv) 40 mg IVPUSH DAILY [facility] Last Admin: 04/05/18 11:00 Dose: 40 mg Thiamine HCl (Vitamin B1 Injection -) 200 mg IVPB DAILY [facility] Last Admin: 04/05/18 11:00 Dose: 200 mg ASSESSMENT AND PLAN: s/p Acute Hypoxic Respiratory Failure Syncope Alcohol Intoxication Metabolic Acidosis resolved Elevated LFTs Polysubstance Abuse - continue librium protocol - IVF - PO as tolerated - OOB to chair - DVT prophylaxis - can monitor on floor
[2018-04-06] MEDS: PANTOPRAZOLE SODIUM 40 MG VIAL IVPUSH SCH (11:00)
--- NOTE | 2018-04-06 11:00 | PN ---
Physical Exam: SUBJECTIVE: Patient seen and examined at bedside. No acute events noted overnight. Pt with no complaints at this time. OBJECTIVE: Vital Signs Temperature 98.6 F 04/06/18 06:00 Pulse Rate 72 04/06/18 06:00 Respiratory Rate 17 04/06/18 06:00 Blood Pressure 115/76 04/06/18 06:00 O2 Sat by Pulse Oximetry (%) 100 04/05/18 21:00 GENERAL: The patient is awake, alert, and fully oriented, in no acute distress. EYES: extraocular movements intact ENT: Ears normal, nares patent, LUNGS: Breath sounds equal, clear to auscultation bilaterally HEART: Regular rate and rhythm, S1, S2 ABDOMEN: Soft, nontender, nondistended, normoactive bowel sounds EXTREMITIES: warm, well-perfused NEUROLOGICAL: Cranial nerves II through XII grossly intact. Normal speech, gait not observed. PSYCH: Normal mood, normal affect. SKIN: Warm, dry Laboratory Results - last 24 hr 04/05/18 04/05/18 04/05/18 05:30 06:15 12:17 WBC RBC Hgb Hct MCV MCH MCHC RDW Plt Count MPV Absolute Neuts (auto) Neutrophils % Lymphocytes % Monocytes % Eosinophils % Basophils % Nucleated RBC % Sodium Potassium Chloride Carbon Dioxide Anion Gap BUN Creatinine Creat Clearance w eGFR POC Glucometer 103.01891 90.23599 Random Glucose Lactic Acid Calcium Phosphorus Magnesium Total Bilirubin AST ALT Alkaline Phosphatase Creatine Kinase Creatine Kinase Index CK-MB (CK-2) Troponin I Total Protein Albumin Vitamin B12 Free T3 3.3 04/05/18 04/06/18 04/06/18 12:40 05:30 05:30 WBC 12.3 H RBC 3.88 L Hgb 12.7 Hct 37.2 MCV 95.8 MCH 32.9 MCHC 34.3 RDW 13.1 Plt Count 225 MPV 8.2 Absolute Neuts (auto) 8.1 Neutrophils % 66.3 Lymphocytes % 22.0 D Monocytes % 9.8 Eosinophils % 1.3 Basophils % 0.6 Nucleated RBC % 0 Sodium 141 Potassium 3.7 Chloride 114 H Carbon Dioxide 26 Anion Gap 1 L BUN 9 Creatinine 0.6 L Creat Clearance w eGFR > 60 POC Glucometer Random Glucose 97 Lactic Acid Calcium 7.6 L Phosphorus 3.1 Magnesium 1.9 Total Bilirubin 1.2 H AST 46 H D ALT 52 D Alkaline Phosphatase 80 Creatine Kinase 475 H Creatine Kinase Index 1.6 CK-MB (CK-2) 8.02 H Troponin I 0.03 D Total Protein 5.4 L Albumin 2.8 L Vitamin B12 411 Free T3 04/06/18 05:30 WBC RBC Hgb Hct MCV MCH MCHC RDW Plt Count MPV Absolute Neuts (auto) Neutrophils % Lymphocytes % Monocytes % Eosinophils % Basophils % Nucleated RBC % Sodium Potassium Chloride Carbon Dioxide Anion Gap BUN Creatinine Creat Clearance w eGFR POC Glucometer Random Glucose Lactic Acid 0.6 Calcium Phosphorus Magnesium Total Bilirubin AST ALT Alkaline Phosphatase Creatine Kinase Creatine Kinase Index CK-MB (CK-2) Troponin I Total Protein Albumin Vitamin B12 Free T3 Active Medications Generic Name Dose Route Start Last Admin Trade Name Freq PRN Reason Stop Dose Admin Albuterol/Ipratropium 1 amp 04/05/18 08:00 04/06/18 08:13 Duoneb - NEB 1 amp RTID [facility] Administration Chlordiazepoxide HCl 50 mg 04/05/18 17:00 04/06/18 06:20 Librium - PO 04/06/18 11:01 50 mg [id number] [facility]ANDA Administration Chlordiazepoxide HCl 25 mg 04/06/18 17:00 Librium - PO 04/07/18 11:01 [id number] AMANDA Chlordiazepoxide HCl 15 mg 04/07/18 17:00 Librium - PO 04/08/18 11:01 [id number] [facility] Chlordiazepoxide HCl 25 mg 04/05/18 14:46 Librium - PO 04/08/18 14:45 Q4H PRN WITHDRAWAL(CONT SUBST) Chlordiazepoxide HCl 10 mg 04/08/18 17:00 Librium - PO 04/09/18 11:01 [id number] [facility]ANDA Chlorhexidine Gluconate 1 applic 04/05/18 22:00 04/05/18 22:03 Hibiclens For Decolonization - TP 1 applic HS [facility] Administration Heparin Sodium (Porcine) 5,000 unit 04/05/18 06:00 04/06/18 06:19 Heparin - SQ 5,000 unit TID [facility] Administration Dextrose/Sodium Chloride 1,000 mls @ 100 mls/hr 04/05/18 01:15 04/06/18 04:00 D5-Ns - IV 100 mls/hr ASDIR [facility] Administration Mupirocin 1 applic 07/20/18 10:00 04/05/18 22:02 Bactroban Ointment (For Decolonization) - NS 04/10/18 09:59 1 applic BID [facility] Administration Pantoprazole Sodium 40 mg 04/05/18 10:00 04/05/18 11:00 Protonix Iv IVPUSH 40 mg DAILY [facility] Administration Thiamine HCl 200 mg 04/05/18 10:00 04/05/18 11:00 Vitamin B1 Injection - IVPB 200 mg DAILY [facility] Administration ASSESSMENT/PLAN: 53 y/o M w/PMH of ethanol abuse admitted to the ICU after a syncopal episode, followed by acute respiratory failure in the ED requiring intubation. Extubated 04/05/18. Neuro: -AAOx3 -Ethanol dependance -no signs of alcohol withdrawal at this time -Thiamine 200 mg IV qd -Librium taper Respiratory -S/p extubation 04/05/18 from acute hypoxic resp failure -duonebs TID GI -GERD -protonix 40 mg iv qd -Transaminitis -Improving -DVT ppx -Heparin sq q8h -FEN -D5-NS @ 100 ml/hr -Monitor electrolytes -Clear liquid diet, advance as tolerated -Dispo: Transfer to /s Visit type - Emergency Visit Emergency Visit: Yes ED Registration Date: 04/05/18 Care time: The patient presented to the Emergency Department on the above date and was hospitalized for further evaluation of their emergent condition. - New Patient This patient is new to me today: Yes Date on this admission: 04/06/18 - Critical Care Critical Care patient: Yes Total Critical Care Time (in minutes): 41 Critical Care Statement: The care of this patient involved high complexity decision making to prevent further life threatening deterioration of the patient 's condition and/or to evaluate & treat vital organ system(s) failure or risk of failure.
--- NOTE | 2018-04-06 11:42 | CONSULT ---
Consult - text type - Consultation Consultation Note: NEUROLOGY CONSULTATION is greatly appreciated: Case reviewed and discussed with RN. 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 [place] No response to narcan. In ED BAL=45.8 CT of head (reviewed): Normal. Patient was confused and agitated but now better on Librium detox. Denies prior seizures or blackouts. ANAND: small abrasion right supraorbital region Neck supple. No bruits. Cor regular. Young with pink drainage (U/A unremarkable on admission). NEURO: Sleeping but arouses to name. Cooperative. Ox [facility]. Thursday April 05, 2018. Trump. Shelley won the [employer] Fluent speech CN II-XII: normal without Nystagmus. Full EOM's. Motor: No drift or tremor. Normal strength, bulk tone and reflexes except reduced AJ' s. Toes downgoing. No FTN Dystaxia Normal vibration in feet IMP: Normal neurological exam Toxic-metabolic Encephalopathy due to Alcohol intoxication. SUGGEST: Continue librium Taper Thiamine 250 mg IVPB over 1 hour TID D/C Young Transfer in patient alcohol rehab. Thank you very much, Kj Nguyen MD
[2018-04-06] MEDS ORDERED: chlordiazePOXIDE HCL 25 MG CAPSULE PO PRN (16:33)
[2018-04-06] MEDS ORDERED: chlordiazePOXIDE HCL 25 MG CAPSULE PO SCH (17:00)
[2018-04-06 21:55] VITALS: BMI 24.6
[2018-04-06] MEDS ORDERED: CHLORHEXIDINE GLUCONATE 4% CLEANSER FOR DECOLONIZATION TP SCH (22:00)
[2018-04-06] MEDS ORDERED: MUPIROCIN 2% TOPICAL OINTMENT FOR DECOLONIZATION NS SCH (22:00)
[2018-04-07] MEDS: chlordiazePOXIDE HCL 25 MG CAPSULE PO SCH ×2 (05:57→11:03)
[2018-04-07] MEDS: HEPARIN NA (PORCINE) 5,000 UNITS/ML 1ML VIAL SQ SCH ×2 (05:57→14:48)
[2018-04-07] MEDS: DEXTROSE 5%-NORMAL SALINE 1,000 ML IV SCH (06:24)
[2018-04-07 07:28] LABS: BASO % 0.7 % (0-2.0); EOS % 2.8 % (0-4.5); HEMATOCRIT 36.2 % (35.4-49); HEMOGLOBIN 12.7 GM/dL (11.7-16.9); LYMPH % 27.2 % (8-40); MCH 32.8 pg (25.7-33.7); MEAN CELL VOLUME 93.8 fl (80-96); MEAN PLT VOLUME 8.6 fl (7.5-11.1); MONO % 9.3 % (3.8-10.2); PLATELET COUNT 222 K/MM3 (134-434); RBC 3.87 M/mm3 (4.00-5.60); RDW 12.7 % (11.9-15.9); WHITE BLOOD COUNT 9.1 K/mm3 (4.0-10.0)
[2018-04-07] MEDS: ALBUTEROL SO4 2.5/IPRATROPIUM 0.5 INH SOL 3 ML VIAL.NEB. NEB SCH ×2 (08:28→13:50)
[2018-04-07 08:34] LABS: CHLORIDE 108 mmol/L (98-107); POTASSIUM 3.5 mmol/L (3.5-5.1); SODIUM 140 mmol/L (136-145)
[2018-04-07 08:40] LABS: ALBUMIN 2.7 g/dl (3.4-5.0); ALK PHOS 95 U/L (45-117); ANION GAP 7 (8-16); BILIRUBIN,TOTAL 0.6 mg/dL (0.2-1.0); BLOOD UREA NITROGEN 6 mg/dL (7-18); CALCIUM 7.9 mg/dL (8.5-10.1); CO2 25 mmol/L (21-32); CREATININE 0.6 mg/dL (0.7-1.3); GLUCOSE,RANDOM 103 mg/dL (74-106); MAGNESIUM 1.7 mg/dL (1.8-2.4); SGOT/AST 45 U/L (15-37); SGPT/ALT 47 U/L (12-78); TOT PROT 5.2 g/dl (6.4-8.2)
[2018-04-07] MEDS ORDERED: THIAMINE HCL 200 MG/2 ML VIAL IVPB SCH (10:00)
[2018-04-07] MEDS ORDERED: PANTOPRAZOLE SODIUM 40 MG VIAL IVPUSH SCH (10:00)
--- NOTE | 2018-04-07 12:01 | PN ---
Progress Note, Physician - Current Medication List Current Medications: Active Medications Albuterol/Ipratropium (Duoneb -) 1 amp NEB RTID [facility] Last Admin: 04/07/18 08:28 Dose: 1 amp Chlordiazepoxide HCl (Librium -) 25 mg PO Q4H PRN PRN Reason: WITHDRAWAL(CONT SUBST) Stop: 04/08/18 14:45 Chlordiazepoxide HCl (Librium -) 15 mg PO [id number] [facility] Stop: 04/08/18 11:01 Chlordiazepoxide HCl (Librium -) 10 mg PO [id number] [facility] Stop: 04/09/18 11:01 Heparin Sodium (Porcine) (Heparin -) 5,000 unit SQ TID [facility] Last Admin: 04/07/18 05:57 Dose: 5,000 unit Dextrose/Sodium Chloride (D5-Ns -) 1,000 mls @ 100 mls/hr IV ASDIR [facility] Last Admin: 04/07/18 06:24 Dose: 100 mls/hr Pantoprazole Sodium (Protonix Iv) 40 mg IVPUSH DAILY [facility] Last Admin: 04/07/18 11:03 Dose: 40 mg Thiamine HCl (Vitamin B1 Injection -) 200 mg IVPB DAILY [facility] Last Admin: 04/07/18 11:03 Dose: 200 mg - Objective Vital Signs: Vital Signs Temperature 98.1 F 04/07/18 09:00 Pulse Rate 76 04/07/18 09:00 Respiratory Rate 20 04/07/18 09:00 Blood Pressure 140/71 04/07/18 09:00 O2 Sat by Pulse Oximetry (%) 95 04/06/18 21:00 Cardiovascular: Yes: S1, S2 Respiratory: Yes: Regular, CTA Bilaterally Gastrointestinal: Yes: Normal Bowel Sounds, Soft Labs: CBC, BMP 04/07/18 06:10 04/07/18 06:10 INR, PTT INR 1.11 (0.82-1.09) 04/05/18 05:30 Problem List - Problems (1) Substance abuse Assessment/Plan: per detox Code(s): F19.10 - OTHER PSYCHOACTIVE SUBSTANCE ABUSE, UNCOMPLICATED (2) Acute respiratory failure Assessment/Plan: -extubated alcohol level noted thiamine aspiration precautions echo done gi /dvt ppx l Code(s): J96.00 - ACUTE RESPIRATORY FAILURE, UNSP W HYPOXIA OR HYPERCAPNIA (3) ETOH abuse Assessment/Plan: -librium protocol Code(s): F10.10 - ALCOHOL ABUSE, UNCOMPLICATED
[2018-04-07] MEDS ORDERED: MAGNESIUM SULF 50% (8.12 MEQ/2 ML-1 GM VIAL) IVPB ONE (12:02)
[2018-04-07] MEDS ORDERED: MAGNESIUM 1GM/D5W - 1 GM/100 ML IVPB IVPB ONE (13:00)
[2018-04-07 13:28] VITALS: BP 158/94; PULSE 94; TEMP 97.6
[2018-04-07] MEDS ORDERED: POTASSIUM CHLORIDE TABS 20 MEQ TABLET.ER (FP) PO ONE (13:30)
--- NOTE | 2018-04-07 15:05 | EKG ---
Test Reason : Blood Pressure : / mmHG Vent. Rate : 077 BPM Atrial Rate : 077 BPM P-R Int : 152 ms QRS Dur : 092 ms QT Int : 418 ms P-R-T Axes : 049 -16 030 degrees QTc Int : 473 ms NORMAL SINUS RHYTHM ST ELEVATION, CONSIDER EARLY REPOLARIZATION BORDERLINE ECG WHEN COMPARED WITH ECG OF 26-MAR-2018 01:44, NO SIGNIFICANT CHANGE WAS FOUND Confirmed by SUSAN CASE MD ([id number]) on 04/07/2018 3:04:31 PM Referred By: Confirmed By:SUSAN CASE MD
[2018-04-07] MEDS ORDERED: chlordiazePOXIDE 5 MG CAPSULE PO SCH ×2 (17:00)
--- NOTE | 2018-04-07 17:09 | HOSP ---
Physical Examination Vital Signs: Vital Signs Temperature 97.6 F 04/07/18 13:25 Pulse Rate 94 H 04/07/18 13:25 Respiratory Rate 18 04/07/18 13:25 Blood Pressure 158/94 04/07/18 13:25 O2 Sat by Pulse Oximetry (%) 99 04/07/18 09:00 Labs: CBC, BMP 04/07/18 06:10 04/07/18 06:10 Hospitalist Encounter Assessment: Called by RN. PT wishes to leave against medical advice. Discussed importance of staying and completing detox, pt states he needs to return to work, he has no more sick time. He stated his is also taking him to rehab, [facility]. He understands the risks for signing out AMA including seizure, resp arrest and possible . He will return to the hospital if symptoms worsen.
--- NOTE | 2018-04-07 17:33 | CONSULT ---
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 [place]. No response to narcan. In ED BAL=45.8 CT of head (reviewed): Normal. Patient was confused and agitated but now better on Librium detox. Denies prior seizures or blackouts. Pt is in the process of signing out AMA, as he has to go to work tomorrow. 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 opiates, intranasal cocaine) - Past Surgical History Past Surgical History: Yes: Colectomy (1998) CIWA Score - CIWA Score Nausea/Vomitin-No Nausea/No Vomiting Muscle Tremors: 4-Moderate,w/Arms Extend Anxiety: 1-Mildly Anxious Agitation: 0-Normal Activity Paroxysmal Sweats: No Perspiration Orientation: 0-Oriented Tacttile Disturbances: 0-None Auditory Disturbances: 0-None Visual Disturbances: 0-None Headache: 0-None Present CIWA-Ar Total Score: 5 Assessment Plan - Diagnosis (1) Alcohol dependence with uncomplicated withdrawal Status: Acute (2) Respiratory distress Status: Acute - Plan Plan: d/w pt at length about addiction and treatment of alcohol use disorder- use of naltrexone as a possibility. Pt needs to leave AMA today to start working tomorrow. Pt plans on coming to [facility] for outpt treatment/groups. Given pt my contact info. in case he wants to come to [facility] for detox/ rehab admission.
[2018-04-08] MEDS ORDERED: chlordiazePOXIDE 5 MG CAPSULE PO SCH ×2 (17:00)
== END 2018-04-07 17:50 | disposition home or self-care (01) | DRG 133 ==
LOC: JER 22:27 → JERBED 04-05 00:01 → UNDOADMIN 04-05 00:20 → JICU 04-05 06:04 → J7W 04-06 16:29
PROVIDERS: ADMIT Internal Medicine; ATTEND Family Medicine
PROC: 5A1945Z Respiratory Ventilation, 24-96 Consecutive Hours (ICD-10-PCS; principal; 2018-04-04)
PROC: 0BH17EZ Insertion of Endotracheal Airway into Trachea, Via Natural or Artificial Opening (ICD-10-PCS; 2018-04-04)
PROC: HZ2ZZZZ Detoxification Services for Substance Abuse Treatment (ICD-10-PCS; 2018-04-05)
DX: J96.01 Acute respiratory failure with hypoxia (principal); G92 Toxic encephalopathy; E87.4 Mixed disorder of acid-base balance; K70.0 Alcoholic fatty liver; F10.230 Alcohol dependence with withdrawal, uncomplicated; Y90.5 Blood alcohol level of 100-119 mg/100 ml; G47.33 Obstructive sleep apnea (adult) (pediatric); G40.89 Other seizures; F12.10 Cannabis abuse, uncomplicated; F19.10 Other psychoactive substance abuse, uncomplicated; T65.891A Toxic effect of other specified substances, accidental (unintentional), initial encounter; J45.909 Unspecified asthma, uncomplicated; R73.9 Hyperglycemia, unspecified; E87.2 Acidosis; R74.0 Nonspecific elevation of levels of transaminase and lactic acid dehydrogenase [LDH]; R55 Syncope and collapse; S00.81XA Abrasion of other part of head, initial encounter; W18.39XA Other fall on same level, initial encounter; Y93.89 Activity, other specified; Y99.8 Other external cause status; R74.8 Abnormal levels of other serum enzymes; R41.3 Other amnesia; Z90.49 Acquired absence of other specified parts of digestive tract
CPT/HCPCS: 36415; 36600; 70450-TC; 71045-TC-FY; 71046-TC-FY; 76705-TC; 80053; 80307; 81003; 81015; 82009; 82140; 82375; 82550; 82553; 82607; 82803; 82962; 83050; 83605; 83735; 83930; 84100; 84439; 84443; 84481; 84484; 85025; 85610; 85730; 86850; 86900; 86901; 87040; 87086; 93005; 93010; 93306-TC; 94640; 99285-25; J1644; J7030; J7620

== ENCOUNTER 2018-04-12 13:33 | Emergency (ER) | payer OTHER ==
--- NOTE | 2018-04-12 13:36 | PDOC ---
History of Present Illness - General Stated Complaint: Alcohol intoxication Time Seen by Provider: 04/12/18 13:36 History Source: Patient, EMS Exam Limitations: Intoxication - History of Present Illness Initial Comments: Pt, with PMH of heroin and alcohol use, presents to the ED via EMS. EMS states pt was found outside of a [employer] by a passer-by, after the pt had done heroin and was "slumped over on a bench unconscious". Pt was alert and oriented by the time EMS arrived, and they did not initiate any intervention. Pt states he called [facility] rehab facility this morning, and they told him he needed to " be dirty" (have done drugs) for him to be admitted to the facility. The pt was then walking on his way to the facility when he "snorted one bag of heroin" and drank 1 pint of vodka, before he sat down in front of the [employer]. The pt was recently admitted for heroin overdose which he states was contaminated with fentanyl. The pt complains of nausea and 3 episodes of loose brown stool this morning, but denies any fever/chills, tremors, seizures, chest pain or palpitations, SOB, abdominal pain, urinary symptoms, or leg swelling. 04/12/18 19:33 04/12/18 19:45 Past History - Travel Traveled outside of the country in the last 30 days: No Close contact w/someone who was outside of country & ill: No - Past Medical History Allergies/Adverse Reactions: Allergies Allergy/AdvReac Type Severity Reaction Status Date / Time Fish Containing Products Allergy Verified 04/12/18 13:43 shellfish derived Allergy Verified 04/12/18 13:43 SEAFOOD Allergy Rash Uncoded 04/12/18 13:43 Home Medications: Ambulatory Orders NK [No Known Home Medication] 04/12/18 Asthma: Yes COPD: No GI Disorders: Yes (COLITIS) Thyroid Disease: No - Surgical History Abdominal Surgery: Yes (COLON SURGERY 1989) - Suicide/Smoking/Psychosocial Hx Smoking Status: Yes Smoking History: Unknown if ever smoked Have you smoked in the past 12 months: No Number of Cigarettes Smoked Daily: 20 Cigars Per Day: 0 'Breaking Loose' booklet given: 06/30/15 Hx Alcohol Use: Yes (1 pint of vodka a day) Drug/Substance Use Hx: No Substance Use Type: None, Alcohol Hx Substance Use Treatment: Yes (yes, [facility]) Review of Systems - Review of Systems Able to Perform ROS?: Yes Constitutional: Yes: Weight Stable. No: Chills, Diaphoresis, Fever, Loss of Appetite HEENTM: No: Blurred Vision, Double Vision, Difficulty Swallowing Respiratory: No: Cough, Orthopnea, Shortness of Breath Cardiac (ROS): Yes: Syncope (LOC after heroin and alcohol use today.). No: Chest Pain, Edema, Irregular Heart Rate, Lightheadedness, Palpitations, Chest Tightness ABD/GI: No: Constipated, Diarrhea, Nausea, Poor Appetite, Poor Fluid Intake, Vomiting : No: Burning, Dysuria, Frequency, Flank Pain, Hematuria, Incontinence, Pain, Urgency Musculoskeletal: No: Back Pain, Joint Pain Integumentary: No: Bruising, Rash Neurological: No: Headache, Numbness, Seizure Psychiatric: No: Sleep Pattern Change, Change in Appetite Endocrine: No: Excessive Sweating, Change in Weight Hematologic/Lymphatic: No: Anemia, Blood Clots, Easy Bleeding *Physical Exam - Physical Exam General Appearance: Yes: Nourished, Appropriately Dressed, Mild Distress (Pt tachycardic, no hypertension on arrival. ), Alcohol on Breath, Intoxicated (pt slurring speech but can answer appropriately.) HEENT: positive: EOMI, ZHENG, Normal ENT Inspection, Normal Voice, Symmetrical, Pharynx Normal, Hearing Grossly Normal. negative: Scleral Icterus (R), Scleral Icterus (L), Tonsillar Exudate Neck: positive: Trachea midline, Normal Thyroid, Supple. negative: Tender, Rigid, Lymphadenopathy (R), Lymphadenopathy (L) Respiratory/Chest: positive: Lungs Clear, Normal Breath Sounds. negative: Chest Tender, Respiratory Distress, Accessory Muscle Use Cardiovascular: positive: Regular Rhythm, S1, S2, Tachycardia. negative: Regular Rate, Edema, JVD, Murmur Vascular Pulses: Carotid (R): 4+, Carotid (L): 4+ Gastrointestinal/Abdominal: positive: Normal Bowel Sounds, Flat, Soft. negative : Tender, Organomegaly, Pulsatile Mass Lymphatic: negative: Adenopathy, Tenderness Musculoskeletal: positive: Normal Inspection. negative: CVA Tenderness Extremity: positive: Normal Capillary Refill, Normal Inspection, Normal Range of Motion, Pelvis Stable. negative: Tender Integumentary: positive: Normal Color, Dry, Warm, Ecchymosis (small abrasion over L patella. No decreased ROM with knee flexion or extension, no tenderness.) . 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 negative: EOM Palsy, Facial Droop, Numbness, Sensory Deficit, Confused, Disoriented Heart Score/ECG Review - Webster Webster: Left Webster Deviation (possible mild LVH in lateral leads.) - ECG Impressions Normal ECG: Yes Non-specific ST Elevation: No Ischemic Changes: No Bradycardia: No Tachycardia: Sinus ED Treatment Course - LABORATORY CBC & Chemistry Diagram: 04/12/18 14:55 04/12/18 14:26 Medical Decision Making - Medical Decision Making Pt seen at bedside. O2 saturation at 91%. Provided 3L O2 and saturation improved to 96%. Spoke to on phone, informed her that pt is here in the ED and is responsive. 04/12/18 14:12 Ordered CMP, CBC, and chest x-ray. 04/12/18 14:26 Pt labs showed minimal increased WBC, no evidence of infection (clear breath sounds, no urinary symptoms). CMP WNL. Will provide 4 mg IV zofran for nausea. If pt improves, he can be discharged to go back to rehab facility. 04/12/18 15:37 Pt nausea improved after zofran. Pt better able to mentate and is ambulating better. Pt can be discharged so he can check into rehab facility. Provided strict return precautions, with pt understanding. Pulse improved to 95. Spoke to pt [place] at [phone] (per pt request) to let her know he was going to the rehab facility. 04/12/18 16:26 *DC/Admit/Observation/Transfer Diagnosis at time of Disposition: Heroin abuse, Alcohol intake above recommended sensible limits without complication Heroin overdose Qualifiers: Encounter type: initial encounter Injury intent: accidental or unintentional Qualified Code(s): T40.1X1A - Poisoning by heroin, accidental (unintentional), initial encounter - Discharge Dispostion Disposition: HOME Condition at time of disposition: Improved Decision to Admit order: No - Referrals Referrals: Timoteo [facility] [Primary Care Provider] - - Patient Instructions Printed Discharge Instructions: DI for Drug Withdrawal Additional Instructions: Please contact your primary care physician and check into the rehabilitation facility as instructed. Please return to the ED if you develop any chest pain or fast heart rate, difficulty breathing or shortness of breath, fevers or chills, withdrawal symptoms, difficulty tolerating foods or fluids, or any other concerns. - Post Discharge Activity
--- NOTE | 2018-04-12 13:41 | PDOC ---
Attending Attestation - HPI HPI: Patient is a 53 year old male with a significant past medical history of syncope , ETOH abuse, JAYLYN, colitis, who presents to the ED with complaints of substance abuse that begin this morning. Patient reports going to [facility] when he called them and was told he needs to be high in order to be admitted to the facility. He reports going to ingest a bag of heroin as well as a pint of vodka. As per EMS a bystander called 911 after noticing the patient. Patient was recently admitted on March 18 after being found unresponsive due to heroin and fentanyl use. Patient reports experiencing associated symptoms of diarrhea, slight nausea and chest palpitations. As per EMS patient was not administered anything while en route to ED. Patient is currently requesting to go to rehab. Denies chest pain, Sob. Denies nausea, vomiting. Denies fevers, chills. Denies contact with sick individuals, out of state travelling. Denies head trauma, loss of consciousness, vision changes. Denies dysuria, hematuria, constipation, diarrhea. Denies any other symptoms. Allergies: Seafood. Social history: Current alcohol use. Unknown if smoking. Current Heroin use, fentanyl use. Cocaine, percocet abuse, suboxone and xanax abuse; as per brother Surgical history: colectomy PMD: Dr. Timoteo Frost - Physicial Exam PE: GENERAL: Awake, alert, and fully oriented, in no acute distress HEAD: No signs of trauma EYES: PERRLA, EOMI, sclera anicteric, conjunctiva clear ENT: Auricles normal inspection, hearing grossly normal, nares patent, oropharynx clear without exudates. Moist mucosa NECK: Normal ROM, supple, no lymphadenopathy, JVD, or masses LUNGS: Breath sounds equal, clear to auscultation bilaterally. No wheezes, and no crackles HEART: Regular rate and rhythm, normal S1 and S2, no murmurs, rubs or gallops ABDOMEN: Soft, nontender, normoactive bowel sounds. No guarding, no rebound. No masses EXTREMITIES: Normal range of motion, no edema. No clubbing or cyanosis. No cords, erythema, or tenderness NEUROLOGICAL: Cranial nerves II through XII grossly intact. Normal speech, normal gait SKIN: Warm, Dry, normal turgor, no rashes or lesions noted. <Kalyan Alexander - Last Filed: 04/12/18 16:20> - Medical Decision Making 04/12/18 17:03 Pt presents to the ED complaining of generalized malaise. Was found outside intoxicated with heroin and ETOH. Now is oriented x 3 and ambulatory with a steady gait, tolerating PO. Labs checked to rule out electrolyte disturbance and are negative. Tachycardia resolved. Will discharge home. 04/12/18 17:08 <Madalyn Jiménez - Last Filed: 04/12/18 17:08>
[2018-04-12] MEDS ORDERED: ACETAMINOPHEN 1000 MG/100 ML VIAL (NON FORMULARY) IVPB ONE (14:27)
[2018-04-12] MEDS ORDERED: ACETAMINOPHEN INJECTION 100 ML IVPB ONE (14:36)
[2018-04-12 15:04] LABS: HEMATOCRIT 46.4 % (35.4-49); HEMOGLOBIN 15.7 GM/dL (11.7-16.9); MCH 32.2 pg (25.7-33.7); MCHC 33.8 g/dl (32.0-35.9); MEAN CELL VOLUME 95.2 fl (80-96); MEAN PLT VOLUME 7.9 fl (7.5-11.1); PLATELET COUNT 458 K/MM3 (134-434); RBC 4.87 M/mm3 (4.00-5.60); RDW 13.2 % (11.9-15.9); WHITE BLOOD COUNT 12.2 K/mm3 (4.0-10.0)
[2018-04-12 15:32] LABS: ALBUMIN 4.4 g/dl (3.4-5.0); ALK PHOS 128 U/L (45-117); ANION GAP 15 (8-16); BILIRUBIN,TOTAL 0.7 mg/dL (0.2-1.0); BLOOD UREA NITROGEN 18 mg/dL (7-18); CALCIUM 9.4 mg/dL (8.5-10.1); CHLORIDE 106 mmol/L (98-107); CO2 25 mmol/L (21-32); CREATININE 1.2 mg/dL (0.7-1.3); GLUCOSE,RANDOM 72 mg/dL (74-106); POTASSIUM 4.4 mmol/L (3.5-5.1); SGOT/AST 37 U/L (15-37); SGPT/ALT 43 U/L (12-78); SODIUM 146 mmol/L (136-145)
[2018-04-12] MEDS ORDERED: ONDANSETRON 4 MG/2 ML VIAL IVPUSH ONE (15:36)
[2018-04-12] MEDS ORDERED: ONDANSETRON 4 MG/2 ML VIAL ONE (15:48)
[2018-04-12 17:38] VITALS: BP 144/100; PULSE 89; TEMP 98; BMI 42.3
--- NOTE | 2018-04-15 10:47 | EKG ---
Test Reason : Blood Pressure : / mmHG Vent. Rate : 100 BPM Atrial Rate : 100 BPM P-R Int : 136 ms QRS Dur : 082 ms QT Int : 370 ms P-R-T Axes : 052 -32 047 degrees QTc Int : 477 ms NORMAL SINUS RHYTHM LEFT AXIS DEVIATION MINIMAL VOLTAGE CRITERIA FOR LVH, MAY BE NORMAL VARIANT ABNORMAL ECG WHEN COMPARED WITH ECG OF 05-APR-2018 01:34, NO SIGNIFICANT CHANGE WAS FOUND Confirmed by NICK HARVEY, TAVO ([id number]) on 04/15/2018 10:47:12 AM Referred By: Confirmed By:TAVO ROMERO MD
== END 2018-04-12 17:38 | disposition home or self-care (01) ==
LOC: JER 13:33
PROC: 3E033NZ Introduction of Analgesics, Hypnotics, Sedatives into Peripheral Vein, Percutaneous Approach (ICD-10-PCS; principal; 2018-04-12)
PROC: 3E033GC Introduction of Other Therapeutic Substance into Peripheral Vein, Percutaneous Approach (ICD-10-PCS; 2018-04-12)
DX: T40.1X1A Poisoning by heroin, accidental (unintentional), initial encounter (principal); F11.10 Opioid abuse, uncomplicated; Z72.89 Other problems related to lifestyle; V48.1XXA Car passenger injured in noncollision transport accident in nontraffic accident, initial encounter; Y93.89 Activity, other specified; Y92.410 Unspecified street and highway as the place of occurrence of the external cause; J45.909 Unspecified asthma, uncomplicated; F17.210 Nicotine dependence, cigarettes, uncomplicated
CPT/HCPCS: 36415; 80053; 85027; 93005; 93010; 96374; 96375; 99284-25; J0131

== ENCOUNTER 2018-07-06 12:22 | Inpatient (IN) | payer OTHER ==
--- NOTE | 2018-07-06 13:16 | PDOC ---
History of Present Illness - General Chief Complaint: Chest Pain Stated Complaint: CHEST PAIN Time Seen by Provider: 07/06/18 13:11 - History of Present Illness Initial Comments: 53yo M with HTN, substance use, syncope, presenting with shortness of breath and chest pain. Patient says the shortness of breath has been going on for about a month. He has a cough, productive of yellow sputum. Patient has since his primary care physician, Dr. Frost, who prescribed him a z-pack which he finished yesterday with no relief of his symptoms. Patient also reports chest pain that started three days ago while he was at work and doing something exertional. The pain does not radiate, but he endorses numbness and tingling in his left arm. No nausea, vomiting, or diaphoresis. Pain worsens when he takes a deep breath. No history of NC in himself or his family. He has smoked 5-7 cigarettes per day for 37 years. He reports using cocaine last week. Denies fevers, chills, nausea, vomiting, or abdominal pain. Past History - Past Medical History Allergies/Adverse Reactions: Allergies Allergy/AdvReac Type Severity Reaction Status Date / Time Fish Containing Products Allergy Severe Difficulty Verified 07/06/18 12:32 Breathing shellfish derived Allergy Severe Difficulty Verified 07/06/18 12:32 Breathing SEAFOOD Allergy Severe Difficulty Uncoded 07/06/18 12:32 Breathing Home Medications: Ambulatory Orders NK [No Known Home Medication] 04/12/18 Asthma: No Cancer: No Cardiac Disorders: No COPD: No Diabetes: No GI Disorders: No Disorders: No HTN: No Hypercholesterolemia: No Kidney Stones: No Liver Disease: Yes (fatty liver) Seizures: Yes (when overdose) Thyroid Disease: No - Surgical History Abdominal Surgery: Yes (COLON SURGERY 1989) Appendectomy: No Cardiac Surgery: No Cholecystectomy: No Gastric Stapling: No Lung Surgery: No Neurologic Surgery: No Orthopedic Surgery: No - Reproductive History Testicular Surgery: No - Suicide/Smoking/Psychosocial Hx Smoking Status: Yes Smoking History: Current every day smoker Have you smoked in the past 12 months: No Number of Cigarettes Smoked Daily: 10 Cigars Per Day: 0 Information on smoking cessation initiated: No 'Breaking Loose' booklet given: 04/13/18 (give on floor) Hx Alcohol Use: No Drug/Substance Use Hx: Yes Substance Use Type: Heroin (Started using heroin at age 33, consumes 3 bags daily. Last used on 04/11/18), Opiates (Started using percocet at age 33, consumes 3x 10 mg pill daily. Last used on 04/12/18) Hx Substance Use Treatment: Yes ([facility] inpt detox @[facility]. [facility] inpt rehab) Review of Systems - Review of Systems Comments:: Constitutional: no fever, no chills HEENT: no throat pain, no dysphagia Cardiovascular: +chest pain, no palpitations Respiratory: +cough, +shortness of breath Gastrointestinal: no abdominal pain, no nausea, no vomiting, no diarrhea, no constipation Genitourinary: no dysuria, no frequency Musculoskeletal: no myalgia, no arthralgia Skin: no rash, no itching Neurologic: no headache, no dizziness *Physical Exam - Vital Signs Last Vital Signs Temp Pulse Resp BP Pulse Ox 99 F 117 H 20 121/88 99 07/06/18 12:33 07/06/18 12:33 07/06/18 12:33 07/06/18 12:33 07/06/18 12:33 - Physical Exam Comments: General: Awake, alert, and fully oriented, in no acute distress Head: no signs of trauma Eyes: EOMI, sclera anicteric ENT: Moist mucus membranes Neck: Normal ROM, supple Lungs: Diffuse rales, with wheezes on the right Cardio: Regular rhythm, S1 and S2 present Abdomen: Soft, nontender, bowel sounds present Extremities: Normal range of motion, Distal pulses present SKIN: Warm, Dry, normal turgor Neurologic: Cranial nerves II through XII grossly intact. Normal speech ED Treatment Course - LABORATORY CBC & Chemistry Diagram: 07/06/18 14:10 07/06/18 14:10 Medical Decision Making - Medical Decision Making 53yo M with HTN, substance use, syncope, presenting with shortness of breath and chest pain. -Labs: WBC=11.8, no anemia, Utox positive for cocaine -EKG: rate 110, QTc 441, NSR -CXR: no acute pathology (my impression) -Duonebs Patient reports not feeling better after duoneb. Repeat order. Called patient's upon his request. She says that he has been missing for three days and had requested the police to look for him. She reports that the patient has a history of substance abuse with alcohol, pills, fentanyl, and heroin. 07/06/18 16:42 Upon further questioning, patient does not remember how he got to the hospital. The last thing he remembers is leaving work at 1am on Sunday. He does not know if he fell but endorsing head pain and shoulder pain. -CT head: no acute pathology -Duaaronbs -Mag 07/06/18 18:02 Plan for admission. 07/06/18 20:23 Discussed case with inpatient team who accepted patient for admission. *DC/Admit/Observation/Transfer Diagnosis at time of Disposition: Shortness of breath - Discharge Dispostion Condition at time of disposition: Stable Decision to Admit order: Yes - Referrals - Patient Instructions - Post Discharge Activity
[2018-07-06] MEDS ORDERED: predniSONE 20 MG TABLET (UD) PO ONE (14:09)
[2018-07-06] MEDS ORDERED: ASPIRIN 81 MG CHEWABLE TABLETS PO ONE (14:09)
[2018-07-06] MEDS: ALBUTEROL SO4 2.5/IPRATROPIUM 0.5 INH SOL 3 ML VIAL.NEB. NEB SCH ×4 (14:10→15:30)
[2018-07-06] MEDS ORDERED: ASPIRIN 81 MG CHEWABLE TABLETS ONE (14:23)
[2018-07-06] MEDS ORDERED: predniSONE 20 MG TABLET (UD) ONE (14:23)
[2018-07-06] MEDS ORDERED: ALBUTEROL SO4 0.083% IH SOL 2.5 MG/3 ML VIAL.NEB. NEB ONE (14:23)
[2018-07-06 14:41] LABS: BASO % 0.3 % (0-2.0); EOS % 0.9 % (0-4.5); HEMATOCRIT 50.1 % (35.4-49); HEMOGLOBIN 16.7 GM/dL (11.7-16.9); LYMPH % 22.8 % (8-40); MCH 30.9 pg (25.7-33.7); MCHC 33.4 g/dl (32.0-35.9); MEAN CELL VOLUME 92.6 fl (80-96); MEAN PLT VOLUME 8.5 fl (7.5-11.1); MONO % 8.3 % (3.8-10.2); NEUT % 67.7 % (42.8-82.8); PLATELET COUNT 327 K/MM3 (134-434); RBC 5.41 M/mm3 (4.00-5.60); RDW 14.9 % (11.9-15.9); WHITE BLOOD COUNT 11.8 K/mm3 (4.0-10.0)
--- NOTE | 2018-07-06 14:54 | PDOC ---
Attending Attestation - Resident Resident Name: Michelle Meléndez - ED Attending Attestation I have performed the following: I have examined & evaluated the patient, The case was reviewed & discussed with the resident, I agree w/resident's findings & plan, Exceptions are as noted - HPI HPI: 07/06/18 14:51 The patient is a 53 year old male with a significant past medical history of hypertension, etoh abuse, JAYLYN, anxiety, asthma who presents to the ED with chest pain and SOB for several weeks. Pt reports coughing every day for the past few weeks. Denies F/C. Endorses SOB and MORFIN associated with chest tightness. Pt denies any leg swelling. Denies recent travel/immobilization. Pt states that he used his 's albuterol pump and daughter's nebulizer with no relief. He is current every day smoker. Pt states he was given Z-pack by his PMD , which he completed with no resolution of his symptoms. - Physicial Exam PE: 07/06/18 14:53 "GENERAL: Awake, alert, and fully oriented, in no acute distress. HEAD: No signs of trauma EYES: PERRLA, EOMI, sclera anicteric, conjunctiva clear ENT: Auricles normal inspection, hearing grossly normal, nares patent, oropharynx clear without exudates. Moist mucosa NECK: Nontender, no stepoffs, Normal ROM, supple, no lymphadenopathy, JVD, or masses LUNGS: + Diffuse rhonchi and expiratory wheezes HEART: Regular rate and rhythm, normal S1 and S2, no murmurs, rubs or gallops ABDOMEN: Soft, nontender, normoactive bowel sounds. No guarding, no rebound. No masses EXTREMITIES: Normal range of motion, no edema. No clubbing or cyanosis. No cords, erythema, or tenderness NEUROLOGICAL: Cranial nerves II through XII intact. 5/5 strength and sensation in all extremities, Normal speech, normal gait, normal cerebellar function SKIN: Warm, Dry, normal turgor, no rashes or lesions noted. - Medical Decision Making 07/06/18 14:53 53 M with SOB and chest tightness x weeks. Exam notable for rhonchi and wheezing , consistent with COPD. Pt with no prior diagnosis of COPD but is every day smoker. Will also evaluate for PNA. Pt with no leg edema but will check for CHF as well. No evidence of DVT on exam. Pt with no PE risk factors. - Labs, trop, BNP - CXR - Nebs, steroids 07/06/18 18:38 Labs wnl CXR clear on my read Pt reassessed - continues to endorse SOB with wheezing on exam Will continue nebs, administer Mg Admit for COPD exacerbation
[2018-07-06 15:09] LABS: ALBUMIN 4.1 g/dl (3.4-5.0); ALK PHOS 127 U/L (45-117); ANION GAP 13 MMOL/L (8-16); BLOOD UREA NITROGEN 12 mg/dL (7-18); CALCIUM 8.8 mg/dL (8.5-10.1); CHLORIDE 106 mmol/L (98-107); CO2 22 mmol/L (21-32); CREATININE 0.9 mg/dL (0.55-1.3); GLUCOSE,RANDOM 109 mg/dL (74-106); N-TERMINAL BNP 58.2 pg/ml (5-125); POTASSIUM 4.4 mmol/L (3.5-5.1); SGOT/AST 47 U/L (15-37); SGPT/ALT 46 U/L (13-61); SODIUM 140 mmol/L (136-145); TOT PROT 8.1 g/dl (6.4-8.2)
[2018-07-06] MEDS ORDERED: ALBUTEROL SO4 2.5/IPRATROPIUM 0.5 INH SOL 3 ML VIAL.NEB. NEB ONE ×3 (15:28→18:09)
[2018-07-06] MEDS ORDERED: MAGNESIUM SULF 50% (8.12 MEQ/2 ML-1 GM VIAL) IVPB ONE (16:33)
[2018-07-06] MEDS ORDERED: SODIUM CHLORIDE 1,000 ML IV STA (17:47)
--- NOTE | 2018-07-06 18:01 | EKG ---
Test Reason : Blood Pressure : / mmHG Vent. Rate : 110 BPM Atrial Rate : 110 BPM P-R Int : 136 ms QRS Dur : 072 ms QT Int : 326 ms P-R-T Axes : 072 -42 055 degrees QTc Int : 441 ms SINUS TACHYCARDIA LEFT AXIS DEVIATION ABNORMAL ECG WHEN COMPARED WITH ECG OF 13-APR-2018 13:56, NO SIGNIFICANT CHANGE WAS FOUND Confirmed by BILL DOWNEY MD ([id number]) on 07/06/2018 6:01:04 PM Referred By: Confirmed By:BILL DOWNEY MD
[2018-07-06] MEDS ORDERED: MAGNESIUM 1GM/D5W - 2 GM/200 ML IVPB IVPB ONE (18:09)
[2018-07-06 19:07] LABS: METHADONE, UR NEGATIVE ng/ml (CUTOFF=300); OPIATES, URI NEGATIVE ng/ml (CUTOFF=300); PHENCYCLIDINE,URINE NEGATIVE ng/ml (CUTOFF=25); URINE AMPHETAMINES NEGATIVE ng/ml (CUTOFF=500); URINE BARBITURATES NEGATIVE ng/ml (CUTOFF=200); URINE BENZODIAZEPINES NEGATIVE ng/ml (CUTOFF=200)
[2018-07-06 19:08] LABS: COCAINE, UR POSITIVE ng/ml (CUTOFF=300)
[2018-07-06 23:03] VITALS: BMI 25.1
--- NOTE | 2018-07-07 00:25 | HP ---
CHIEF COMPLAINT: SOB and CP PCP: Timoteo Frost MD HISTORY OF PRESENT ILLNESS: 53 year old male with a PMH significant for cocaine and etoh abuse, JAYLYN, colitis s/p colectomy presented to the ED SOB and chest pain. He reports he has had a terrible cough for the past month with "flu-like symptoms." He did not receive a flu vaccine this year. He recently completed a z-jazmín prescribed to him by his PCP, but his cough and congestion have not improved. Patient claims he does not remember how he arrived at the hospital today. He states the last thing he remembers was coming home from work at 1 AM Sunday AM. His last drug use was inhaled cocaine 3 days ago. Patient's reported to ED staff that he has been missing for 3 days and she reported him missing to the police. She says he has a long history abusing ETOH, prescription opiates and heroin. Patient was given duonebs x 2 in the ED and a liter of NS. WBCs slightly elevated at 11.8. Utox positive for cocaine. CXR, head CT, ECG unremarkable. Troponin #1 negative. 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-7 cigarettes a day for approximately 37 years Alcohol: 1-3 drinks 3x per week Drugs: Cocaine, last use intranasally 3 days ago Family History: Mother: Lung Ca, age 66 Maternal Grandfather: Colon cancer, age 62 Maternal Grandmother: CHF age 73 Allergies Fish Containing Products Allergy (Severe, Verified 07/06/18 12:32) Difficulty Breathing shellfish derived Allergy (Severe, Verified 07/06/18 12:32) Difficulty Breathing SEAFOOD Allergy (Severe, Uncoded 07/06/18 12:32) Difficulty Breathing HOME MEDICATIONS: Home Medications Medication Instructions Recorded NK [No Known Home Medication] 04/12/18 REVIEW OF SYSTEMS CONSTITUTIONAL: (+) Fever Absent: chills, diaphoresis, generalized weakness, malaise, loss of appetite, weight change HEENT: (+) nasal congestion Absent: rhinorrhea, throat pain, throat swelling, difficulty swallowing, mouth swelling, ear pain, eye pain, visual changes CARDIOVASCULAR: (+) chest pain Absent: chest pain, syncope, palpitations, irregular heart rate, lightheadedness , peripheral edema RESPIRATORY: (+) cough, shortness of breath Absent: dyspnea with exertion, orthopnea, wheezing, stridor, hemoptysis GASTROINTESTINAL: (+) Diarrhea Absent: abdominal pain, abdominal distension, nausea, vomiting, constipation, melena, hematochezia GENITOURINARY: Absent: dysuria, frequency, urgency, hesitancy, hematuria, flank pain, genital pain MUSCULOSKELETAL: Absent: myalgia, arthralgia, joint swelling, back pain, neck pain SKIN: Absent: rash, itching, pallor HEMATOLOGIC/IMMUNOLOGIC: Absent: easy bleeding, easy bruising, lymphadenopathy, frequent infections ENDOCRINE: Absent: unexplained weight gain, unexplained weight loss, heat intolerance, cold intolerance NEUROLOGIC: Absent: headache, focal weakness or paresthesias, dizziness, unsteady gait, seizure, mental status changes, bladder or bowel incontinence PSYCHIATRIC: Absent: anxiety, depression, suicidal or homicidal ideation, hallucinations. PHYSICAL EXAMINATION Vital Signs - 24 hr 07/06/18 07/06/18 07/06/18 12:33 13:20 18:28 Temperature 99 F 98.2 F Pulse Rate 117 H Pulse Rate [ 115 H Left Radial] Respiratory 20 18 Rate Blood Pressure 121/88 Blood Pressure 134/87 [Right Arm] O2 Sat by Pulse 99 99 100 Oximetry (%) 07/06/18 07/06/18 21:28 22:32 Temperature 98.9 F 98.3 F Pulse Rate 98 H Pulse Rate [ 114 H Left Radial] Respiratory 18 20 Rate Blood Pressure 136/89 Blood Pressure 151/79 [Right Arm] O2 Sat by Pulse 96 96 Oximetry (%) GENERAL: Appears dishevelled, awake, alert, and fully oriented, in no acute distress. HEAD: Normal with no signs of trauma. EYES: Pupils equal, round and reactive to light, extraocular movements intact, sclera anicteric, conjunctiva clear. No lid lag. EARS, NOSE, THROAT: nares patent, oropharynx clear without exudates. Moist mucous membranes. NECK: Normal range of motion, supple, right occipital lymph node approx 0.5 round slightly TTP, JVD, or masses. LUNGS: Scattered wheezes, intermittent dry cough, normal respiratory effort HEART: Regular rate and rhythm, normal S1 and S2 without murmur, rub or gallop. ABDOMEN: Soft, nontender, not distended, normoactive bowel sounds, no guarding, no rebound, no masses. No hepatomegaly or splenomegaly. MUSCULOSKELETAL: Normal range of motion at all joints. No bony deformities or tenderness. No CVA tenderness. UPPER EXTREMITIES: 2+ pulses, warm, well-perfused. No cyanosis. No clubbing. No peripheral edema. LOWER EXTREMITIES: 2+ pulses, warm, well-perfused. No calf tenderness. No peripheral edema. NEUROLOGICAL: No facial droop, gait not observed PSYCHIATRIC: Cooperative. Good eye contact. Appropriate mood and affect. SKIN: Warm, dry, normal turgor, no rashes or lesions noted, normal capillary refill. Laboratory Results - last 24 hr 07/06/18 07/06/18 07/06/18 14:10 14:10 18:26 WBC 11.8 H RBC 5.41 Hgb 16.7 Hct 50.1 H D MCV 92.6 MCH 30.9 MCHC 33.4 RDW 14.9 D Plt Count 327 MPV 8.5 Absolute Neuts (auto) 8.0 Neutrophils % 67.7 Lymphocytes % 22.8 Monocytes % 8.3 Eosinophils % 0.9 Basophils % 0.3 Nucleated RBC % 0 Sodium 140 Potassium 4.4 Chloride 106 Carbon Dioxide 22 Anion Gap 13 BUN 12 Creatinine 0.9 Creat Clearance w eGFR > 60 Random Glucose 109 H Calcium 8.8 Total Bilirubin 1.0 AST 47 H ALT 46 Alkaline Phosphatase 127 H Troponin I < 0.02 B-Natriuretic Peptide 58.2 Total Protein 8.1 Albumin 4.1 Opiates Screen Negative Methadone Screen Negative Barbiturate Screen Negative Phencyclidine Screen Negative Ur Amphetamines Screen Negative MDMA (Ecstasy) Screen Negative Benzodiazepines Screen Negative Cocaine Screen Positive A* U Marijuana (THC) Screen Negative ECG NSR; rate 110, QTc 441 CXR Final read pending; though unremarkable to this insurance underwriter for consolidation or congestion CT head No acute pathology ASSESSMENT/PLAN: 53 year old male with a PMH significant for cocaine and etoch abuse, JAYLYN, colitis s/p colectomy presented to the ED SOB and chest pain. He was placed on observation. SOB/Cough - Recently completed z-pack, but reports his cough and congestion have not improved - Afebrile, WBCs slightly elevated at 11.8 - Final read pending on CXR, though no obvious signs of consolidation or congestion - Will hold off on starting additional antimicrobial therapy for now - Current every day smoker with a 37 year history likely exacerbating factor FEN --PO intake adequate --Electrolytes replete as indicated --Regular diet DVT Prophylaxis --Low risk; OOB, ambulation Dispo: pt currently requires further inpatient observation. FULL CODE Visit type - Emergency Visit Emergency Visit: Yes ED Registration Date: 07/06/18 Care time: The patient presented to the Emergency Department on the above date and was hospitalized for further evaluation of their emergent condition. - New Patient This patient is new to me today: Yes Date on this admission: 07/07/18 - Critical Care Critical Care patient: No
[2018-07-07 07:28] LABS: HEMATOCRIT 46.1 % (35.4-49); HEMOGLOBIN 15.3 GM/dL (11.7-16.9); MCH 30.6 pg (25.7-33.7); MCHC 33.1 g/dl (32.0-35.9); MEAN CELL VOLUME 92.4 fl (80-96); MEAN PLT VOLUME 8.1 fl (7.5-11.1); PLATELET COUNT 271 K/MM3 (134-434); RBC 4.99 M/mm3 (4.00-5.60); WHITE BLOOD COUNT 11.3 K/mm3 (4.0-10.0)
[2018-07-07 08:16] LABS: ANION GAP 9 MMOL/L (8-16); BLOOD UREA NITROGEN 17 mg/dL (7-18); CALCIUM 8.5 mg/dL (8.5-10.1); CHLORIDE 108 mmol/L (98-107); CO2 25 mmol/L (21-32); CREATININE 0.6 mg/dL (0.55-1.3); GLUCOSE,RANDOM 115 mg/dL (74-106); POTASSIUM 4.3 mmol/L (3.5-5.1); SODIUM 141 mmol/L (136-145)
[2018-07-07] MEDS ORDERED: chlordiazePOXIDE HCL 25 MG CAPSULE ONE (12:15)
[2018-07-07] MEDS ORDERED: ALBUTEROL SO4 2.5/IPRATROPIUM 0.5 INH SOL 3 ML VIAL.NEB. NEB PRN (12:51)
[2018-07-07] MEDS ORDERED: ACETAMINOPHEN 325 MG TABLET (FP) PO PRN (12:51)
--- NOTE | 2018-07-07 13:02 | PN ---
Progress Note, Physician Chief Complaint: AWAKE ALERT EVENTS REVIEWED H/O ETOH, NICOTINE DEPENDENCE, SUBSTANCE ABUSE, COUGH FOR OVER 1 WEEK WITH SOB AND ETOH WITHDRAWELS - Current Medication List Current Medications: Active Medications Acetaminophen (Tylenol -) 650 mg PO Q6H PRN PRN Reason: PAIN OR FEVER Albuterol/Ipratropium (Duoneb -) 1 amp NEB Q6H PRN PRN Reason: SHORTNESS OF BREATH Chlordiazepoxide HCl (Librium -) 50 mg PO Q6HPO AMANDA Stop: 07/08/18 21:00 Chlordiazepoxide HCl (Librium -) 25 mg PO Q6HPO AMANDA Stop: 07/10/18 21:00 Chlordiazepoxide HCl (Librium -) 10 mg PO Q6HPO AMANDA Stop: 07/10/18 21:00 Folic Acid (Folic Acid -) 1 mg PO DAILY AMANDA Guaifenesin/Codeine Phosphate (Robitussin Ac -) 10 ml PO Q8H PRN PRN Reason: COUGH Methylprednisolone Sodium Succinate (Solu-Medrol -) 40 mg IVPUSH Q8H-IV AMANDA Nicotine (Nicoderm Patch -) 21 mg TD DAILY AMANDA Thiamine HCl (Vitamin B1 -) 100 mg PO DAILY AMANDA - Objective Vital Signs: Vital Signs Temperature 98.8 F 07/07/18 05:51 Pulse Rate 91 H 07/07/18 05:51 Respiratory Rate 18 07/07/18 06:13 Blood Pressure 135/77 07/07/18 05:51 O2 Sat by Pulse Oximetry (%) 96 07/07/18 06:13 Constitutional: Yes: Mild Distress Eyes: Yes: WNL HENT: Yes: WNL Neck: Yes: WNL Cardiovascular: Yes: WNL Respiratory: Yes: Cough, Rhonchi, Wheezes Gastrointestinal: Yes: WNL Genitourinary: Yes: WNL Musculoskeletal: Yes: WNL Extremities: Yes: WNL Edema: No Peripheral Pulses WNL: Yes Integumentary: Yes: WNL Wound/Incision: Yes: Clean/Dry Neurological: Yes: WNL ...Motor Strength: WNL Psychiatric: Yes: WNL Labs: CBC, BMP 07/07/18 06:20 07/07/18 06:20 Problem List - Problems (1) Shortness of breath Code(s): R06.02 - SHORTNESS OF BREATH (2) Acute hypoxemic respiratory failure Code(s): J96.01 - ACUTE RESPIRATORY FAILURE WITH HYPOXIA (3) Acute respiratory failure Code(s): J96.00 - ACUTE RESPIRATORY FAILURE, UNSP W HYPOXIA OR HYPERCAPNIA (4) Alcohol dependence Code(s): F10.20 - ALCOHOL DEPENDENCE, UNCOMPLICATED (5) Alcohol dependence with uncomplicated withdrawal Code(s): F10.230 - ALCOHOL DEPENDENCE WITH WITHDRAWAL, UNCOMPLICATED (6) Altered mental status Code(s): R41.82 - ALTERED MENTAL STATUS, UNSPECIFIED (7) Bronchitis Code(s): J40 - BRONCHITIS, NOT SPECIFIED ACUTE OR CHRONIC (8) Cocaine abuse Code(s): F14.10 - COCAINE ABUSE, UNCOMPLICATED (9) ETOH abuse Code(s): F10.10 - ALCOHOL ABUSE, UNCOMPLICATED (10) Fatty liver Code(s): K76.0 - FATTY (CHANGE OF) LIVER, NOT ELSEWHERE CLASSIFIED (11) Nicotine dependence Code(s): F17.200 - NICOTINE DEPENDENCE, UNSPECIFIED, UNCOMPLICATED Qualifiers: Nicotine product type: cigarettes Assessment/Plan IV STEROIDS/NEBS/ROBITUSSIN AC OOB TO CHAIR NICOTINE PATCH SONO OF LIVER R/O CIRRHOSIS VS OTHER HEP PANEL ORDERED LIBRIUM TAPER FOLIC ACID/THIAMINE STARTED COUNSELING ON ETOH AND SUBSTANCE ABUSE SMOKING CESSATION
[2018-07-07] MEDS: chlordiazePOXIDE HCL 25 MG CAPSULE PO SCH ×3 (13:53→22:54)
[2018-07-07] MEDS: methylPREDNISolone NA SUCC 40 MG/1 ML VIAL IVPUSH SCH ×2 (13:53→17:34)
[2018-07-07] MEDS: NICOTINE 21 MG/24 HOURS TOPICAL PATCH TD SCH (13:53)
[2018-07-07] MEDS ORDERED: LORazepam 1 MG TABLET PO ONE (21:18)
[2018-07-07] MEDS: guaiFENesin/CODEINE 10 ML UNIT-DOSE CUPS PO PRN (22:54)
[2018-07-08] MEDS: methylPREDNISolone NA SUCC 40 MG/1 ML VIAL IVPUSH SCH ×3 (01:23→18:00)
[2018-07-08] MEDS: chlordiazePOXIDE HCL 25 MG CAPSULE PO SCH ×4 (05:51→22:51)
[2018-07-08] MEDS: THIAMINE HCL 100 MG TABLET (FP) PO SCH (10:04)
[2018-07-08] MEDS: FOLIC ACID 1 MG TABLET (FP) PO SCH (10:04)
[2018-07-08] MEDS: NICOTINE 21 MG/24 HOURS TOPICAL PATCH TD SCH (10:05)
--- NOTE | 2018-07-08 13:46 | PN ---
Progress Note, Physician Chief Complaint: AWAKE ALERT COMPLETED TEST WITH SONO OF LIVER FEELING BETTER - Current Medication List Current Medications: Active Medications Acetaminophen (Tylenol -) 650 mg PO Q6H PRN PRN Reason: PAIN OR FEVER Albuterol/Ipratropium (Duoneb -) 1 amp NEB Q6H PRN PRN Reason: SHORTNESS OF BREATH Chlordiazepoxide HCl (Librium -) 50 mg PO [id number] [facility] Stop: 07/09/18 05:01 Last Admin: 07/08/18 10:52 Dose: 50 mg Chlordiazepoxide HCl (Librium -) 25 mg PO [id number] [facility] Stop: 07/10/18 05:01 Chlordiazepoxide HCl (Librium -) 10 mg PO [id number] [facility] Stop: 07/11/18 05:01 Folic Acid (Folic Acid -) 1 mg PO DAILY [facility] Last Admin: 07/08/18 10:04 Dose: 1 mg Guaifenesin/Codeine Phosphate (Robitussin Ac -) 10 ml PO Q8H PRN PRN Reason: COUGH Last Admin: 07/07/18 22:54 Dose: 10 ml Lorazepam (Ativan -) 1 mg PO TID PRN PRN Reason: ANXIETY Methylprednisolone Sodium Succinate (Solu-Medrol -) 40 mg IVPUSH Q8H-IV [facility] Last Admin: 07/08/18 10:05 Dose: 40 mg Nicotine (Nicoderm Patch -) 21 mg TD DAILY [facility] Last Admin: 07/08/18 10:05 Dose: 21 mg Thiamine HCl (Vitamin B1 -) 100 mg PO DAILY [facility] Last Admin: 07/08/18 10:04 Dose: 100 mg - Objective Vital Signs: Vital Signs Temperature 97.8 F 07/08/18 10:00 Pulse Rate 91 H 07/08/18 10:00 Respiratory Rate 18 07/08/18 10:00 Blood Pressure 133/88 07/08/18 10:00 O2 Sat by Pulse Oximetry (%) 96 07/08/18 10:00 Constitutional: Yes: Mild Distress Eyes: Yes: WNL HENT: Yes: WNL Neck: Yes: WNL Cardiovascular: Yes: WNL Respiratory: Yes: Wheezes Gastrointestinal: Yes: WNL Genitourinary: Yes: WNL Musculoskeletal: Yes: WNL Extremities: Yes: WNL Edema: No Peripheral Pulses WNL: Yes Integumentary: Yes: WNL Wound/Incision: Yes: Clean/Dry Neurological: Yes: WNL ...Motor Strength: WNL Psychiatric: Yes: WNL Labs: CBC, BMP 07/07/18 06:20 07/07/18 06:20 Problem List - Problems (1) Shortness of breath Code(s): R06.02 - SHORTNESS OF BREATH (2) Acute hypoxemic respiratory failure Code(s): J96.01 - ACUTE RESPIRATORY FAILURE WITH HYPOXIA (3) Acute respiratory failure Code(s): J96.00 - ACUTE RESPIRATORY FAILURE, UNSP W HYPOXIA OR HYPERCAPNIA (4) Alcohol dependence Code(s): F10.20 - ALCOHOL DEPENDENCE, UNCOMPLICATED (5) Alcohol dependence with uncomplicated withdrawal Code(s): F10.230 - ALCOHOL DEPENDENCE WITH WITHDRAWAL, UNCOMPLICATED (6) Altered mental status Code(s): R41.82 - ALTERED MENTAL STATUS, UNSPECIFIED (7) Bronchitis Code(s): J40 - BRONCHITIS, NOT SPECIFIED ACUTE OR CHRONIC (8) Cocaine abuse Code(s): F14.10 - COCAINE ABUSE, UNCOMPLICATED (9) ETOH abuse Code(s): F10.10 - ALCOHOL ABUSE, UNCOMPLICATED (10) Fatty liver Code(s): K76.0 - FATTY (CHANGE OF) LIVER, NOT ELSEWHERE CLASSIFIED (11) Nicotine dependence Code(s): F17.200 - NICOTINE DEPENDENCE, UNSPECIFIED, UNCOMPLICATED Qualifiers: Nicotine product type: cigarettes Assessment/Plan IV STEROIDS/NEBS/ROBITUSSIN AC OOB TO CHAIR NICOTINE PATCH SONO OF LIVER R/O CIRRHOSIS VS OTHER HEP PANEL ORDERED LIBRIUM TAPER FOLIC ACID/THIAMINE STARTED COUNSELING ON ETOH AND SUBSTANCE ABUSE SMOKING CESSATION
[2018-07-08] MEDS: LORazepam 1 MG TABLET PO PRN ×2 (15:41→22:51)
[2018-07-08] MEDS: guaiFENesin/CODEINE 10 ML UNIT-DOSE CUPS PO PRN (22:52)
[2018-07-09] MEDS: methylPREDNISolone NA SUCC 40 MG/1 ML VIAL IVPUSH SCH ×2 (01:16→09:20)
[2018-07-09 06:09] LABS: HEP.C VIRUS AB <0.1 s/co ratio (0.0-0.9)
[2018-07-09] MEDS: chlordiazePOXIDE HCL 25 MG CAPSULE PO SCH ×4 (06:18→22:49)
[2018-07-09] MEDS: NICOTINE 21 MG/24 HOURS TOPICAL PATCH TD SCH (09:20)
[2018-07-09] MEDS: THIAMINE HCL 100 MG TABLET (FP) PO SCH (09:20)
[2018-07-09] MEDS: FOLIC ACID 1 MG TABLET (FP) PO SCH (09:20)
[2018-07-09] MEDS: guaiFENesin/CODEINE 10 ML UNIT-DOSE CUPS PO PRN ×2 (13:14→22:48)
--- NOTE | 2018-07-09 13:51 | PN ---
Progress Note, Physician Chief Complaint: AWAKE ALERT FEELING BETTER DENIES COUGH OR SOB - Current Medication List Current Medications: Active Medications Acetaminophen (Tylenol -) 650 mg PO Q6H PRN PRN Reason: PAIN OR FEVER Albuterol/Ipratropium (Duoneb -) 1 amp NEB Q6H PRN PRN Reason: SHORTNESS OF BREATH Chlordiazepoxide HCl (Librium -) 25 mg PO [id number] [facility] Stop: 07/10/18 05:01 Last Admin: 07/09/18 11:48 Dose: 25 mg Chlordiazepoxide HCl (Librium -) 10 mg PO [id number] [facility] Stop: 07/11/18 05:01 Folic Acid (Folic Acid -) 1 mg PO DAILY [facility] Last Admin: 07/09/18 09:20 Dose: 1 mg Guaifenesin/Codeine Phosphate (Robitussin Ac -) 10 ml PO Q8H PRN PRN Reason: COUGH Last Admin: 07/09/18 13:14 Dose: 10 ml Lorazepam (Ativan -) 1 mg PO TID PRN PRN Reason: ANXIETY Last Admin: 07/08/18 22:51 Dose: 1 mg Nicotine (Nicoderm Patch -) 21 mg TD DAILY [facility] Last Admin: 07/09/18 09:20 Dose: 21 mg Prednisone (Deltasone -) 30 mg PO DAILY [facility] Thiamine HCl (Vitamin B1 -) 100 mg PO DAILY [facility] Last Admin: 07/09/18 09:20 Dose: 100 mg - Objective Vital Signs: Vital Signs Temperature 98.4 F 07/09/18 13:17 Pulse Rate 93 H 07/09/18 13:17 Respiratory Rate 18 07/09/18 13:17 Blood Pressure 143/76 07/09/18 13:17 O2 Sat by Pulse Oximetry (%) 99 07/09/18 10:00 Constitutional: Yes: Mild Distress Eyes: Yes: WNL HENT: Yes: WNL Neck: Yes: WNL Cardiovascular: Yes: WNL Respiratory: Yes: Wheezes Gastrointestinal: Yes: WNL Genitourinary: Yes: WNL Musculoskeletal: Yes: Muscle Weakness Extremities: Yes: WNL Edema: No Peripheral Pulses WNL: Yes Integumentary: Yes: WNL Wound/Incision: Yes: Clean/Dry Neurological: Yes: WNL ...Motor Strength: WNL Psychiatric: Yes: WNL Labs: CBC, BMP 07/07/18 06:20 07/07/18 06:20 Problem List - Problems (1) Shortness of breath Code(s): R06.02 - SHORTNESS OF BREATH (2) Acute hypoxemic respiratory failure Code(s): J96.01 - ACUTE RESPIRATORY FAILURE WITH HYPOXIA (3) Acute respiratory failure Code(s): J96.00 - ACUTE RESPIRATORY FAILURE, UNSP W HYPOXIA OR HYPERCAPNIA (4) Alcohol dependence Code(s): F10.20 - ALCOHOL DEPENDENCE, UNCOMPLICATED (5) Alcohol dependence with uncomplicated withdrawal Code(s): F10.230 - ALCOHOL DEPENDENCE WITH WITHDRAWAL, UNCOMPLICATED (6) Altered mental status Code(s): R41.82 - ALTERED MENTAL STATUS, UNSPECIFIED (7) Bronchitis Code(s): J40 - BRONCHITIS, NOT SPECIFIED ACUTE OR CHRONIC (8) Cocaine abuse Code(s): F14.10 - COCAINE ABUSE, UNCOMPLICATED (9) ETOH abuse Code(s): F10.10 - ALCOHOL ABUSE, UNCOMPLICATED (10) Fatty liver Code(s): K76.0 - FATTY (CHANGE OF) LIVER, NOT ELSEWHERE CLASSIFIED (11) Nicotine dependence Code(s): F17.200 - NICOTINE DEPENDENCE, UNSPECIFIED, UNCOMPLICATED Qualifiers: Nicotine product type: cigarettes Assessment/Plan ON PO PREDNISONE NOW TAPERING STEROIDS LIBRIUM TAPER OOB TO CHAIR SMOKING AND ETOH CESSATION D/W PATIENT WILL NEED OUTPATIENT DETOX CHECK LABS IN AM
[2018-07-09] MEDS: PANTOPRAZOLE 40 MG TABLET (FP) PO SCH (14:13)
[2018-07-09] MEDS: predniSONE 10 MG TABLET (UD) PO SCH (14:14)
[2018-07-09] MEDS: LORazepam 1 MG TABLET PO PRN (22:49)
[2018-07-10] MEDS: chlordiazePOXIDE HCL 25 MG CAPSULE PO SCH (05:44)
[2018-07-10 07:33] LABS: HEMATOCRIT 46.7 % (35.4-49); HEMOGLOBIN 15.3 GM/dL (11.7-16.9); MCH 30.5 pg (25.7-33.7); MCHC 32.8 g/dl (32.0-35.9); MEAN CELL VOLUME 92.9 fl (80-96); MEAN PLT VOLUME 8.5 fl (7.5-11.1); PLATELET COUNT 284 K/MM3 (134-434); RBC 5.03 M/mm3 (4.00-5.60); RDW 14.4 % (11.9-15.9); WHITE BLOOD COUNT 14.1 K/mm3 (4.0-10.0)
[2018-07-10 07:47] LABS: ANION GAP 8 MMOL/L (8-16); BLOOD UREA NITROGEN 18 mg/dL (7-18); CALCIUM 8.4 mg/dL (8.5-10.1); CHLORIDE 107 mmol/L (98-107); CO2 23 mmol/L (21-32); CREATININE 0.7 mg/dL (0.55-1.3); GLUCOSE,RANDOM 203 mg/dL (74-106); POTASSIUM 4.2 mmol/L (3.5-5.1); SODIUM 138 mmol/L (136-145)
[2018-07-10] MEDS: PANTOPRAZOLE 40 MG TABLET (FP) PO SCH (09:47)
[2018-07-10] MEDS: NICOTINE 21 MG/24 HOURS TOPICAL PATCH TD SCH (09:47)
[2018-07-10] MEDS: predniSONE 10 MG TABLET (UD) PO SCH (09:47)
[2018-07-10] MEDS: FOLIC ACID 1 MG TABLET (FP) PO SCH (09:47)
[2018-07-10] MEDS: THIAMINE HCL 100 MG TABLET (FP) PO SCH (09:48)
[2018-07-10] MEDS: chlordiazePOXIDE 5 MG CAPSULE PO SCH ×3 (12:22→22:00)
--- NOTE | 2018-07-10 15:59 | PN ---
Progress Note, Physician Chief Complaint: AWAKE ALERT FEELING BETTER MILD COUGH WITH NO SOB - Current Medication List Current Medications: Active Medications Acetaminophen (Tylenol -) 650 mg PO Q6H PRN PRN Reason: PAIN OR FEVER Albuterol/Ipratropium (Duoneb -) 1 amp NEB Q6H PRN PRN Reason: SHORTNESS OF BREATH Chlordiazepoxide HCl (Librium -) 10 mg PO [id number] [facility] Stop: 07/11/18 05:01 Last Admin: 07/10/18 12:22 Dose: 10 mg Folic Acid (Folic Acid -) 1 mg PO DAILY [facility] Last Admin: 07/10/18 09:47 Dose: 1 mg Lorazepam (Ativan -) 1 mg PO TID PRN PRN Reason: ANXIETY Last Admin: 07/09/18 22:49 Dose: 1 mg Nicotine (Nicoderm Patch -) 21 mg TD DAILY [facility] Last Admin: 07/10/18 09:47 Dose: 21 mg Pantoprazole Sodium (Protonix -) 40 mg PO DAILY [facility] Last Admin: 07/10/18 09:47 Dose: 40 mg Prednisone (Deltasone -) 30 mg PO DAILY [facility] Last Admin: 07/10/18 09:47 Dose: 30 mg Thiamine HCl (Vitamin B1 -) 100 mg PO DAILY [facility] Last Admin: 07/10/18 09:48 Dose: 100 mg - Objective Vital Signs: Vital Signs Temperature 97.7 F 07/10/18 10:00 Pulse Rate 74 07/10/18 10:00 Respiratory Rate 18 07/10/18 10:00 Blood Pressure 127/68 07/10/18 10:00 O2 Sat by Pulse Oximetry (%) 99 07/10/18 09:00 Constitutional: Yes: Mild Distress Eyes: Yes: WNL HENT: Yes: WNL Neck: Yes: WNL Cardiovascular: Yes: WNL Respiratory: Yes: WNL Gastrointestinal: Yes: WNL Genitourinary: Yes: WNL Musculoskeletal: Yes: Muscle Weakness Extremities: Yes: Other Edema: No Peripheral Pulses WNL: Yes Integumentary: Yes: WNL Wound/Incision: Yes: Clean/Dry Neurological: Yes: WNL ...Motor Strength: WNL Psychiatric: Yes: WNL Labs: CBC, BMP 07/10/18 07:00 07/10/18 07:00 Problem List - Problems (1) Shortness of breath Code(s): R06.02 - SHORTNESS OF BREATH (2) Acute hypoxemic respiratory failure Code(s): J96.01 - ACUTE RESPIRATORY FAILURE WITH HYPOXIA (3) Acute respiratory failure Code(s): J96.00 - ACUTE RESPIRATORY FAILURE, UNSP W HYPOXIA OR HYPERCAPNIA (4) Alcohol dependence Code(s): F10.20 - ALCOHOL DEPENDENCE, UNCOMPLICATED (5) Alcohol dependence with uncomplicated withdrawal Code(s): F10.230 - ALCOHOL DEPENDENCE WITH WITHDRAWAL, UNCOMPLICATED (6) Altered mental status Code(s): R41.82 - ALTERED MENTAL STATUS, UNSPECIFIED (7) Bronchitis Code(s): J40 - BRONCHITIS, NOT SPECIFIED ACUTE OR CHRONIC (8) Cocaine abuse Code(s): F14.10 - COCAINE ABUSE, UNCOMPLICATED (9) ETOH abuse Code(s): F10.10 - ALCOHOL ABUSE, UNCOMPLICATED (10) Fatty liver Code(s): K76.0 - FATTY (CHANGE OF) LIVER, NOT ELSEWHERE CLASSIFIED (11) Nicotine dependence Code(s): F17.200 - NICOTINE DEPENDENCE, UNSPECIFIED, UNCOMPLICATED Qualifiers: Nicotine product type: cigarettes Assessment/Plan ON PO PREDNISONE NOW TAPERING STEROIDS LIBRIUM TAPER OOB TO CHAIR SMOKING AND ETOH CESSATION D/W PATIENT WILL NEED OUTPATIENT DETOX CHECK LABS IN AM
[2018-07-10] MEDS ORDERED: guaiFENesin/CODEINE 10 ML UNIT-DOSE CUPS PO PRN (19:42)
[2018-07-10] MEDS: LORazepam 1 MG TABLET PO PRN (21:55)
[2018-07-11] MEDS: chlordiazePOXIDE 5 MG CAPSULE PO SCH (05:48)
--- NOTE | 2018-07-11 09:24 | DS ---
Physical Examination Vital Signs: Vital Signs Temperature 98 F 07/11/18 06:34 Pulse Rate 76 07/11/18 06:34 Respiratory Rate 18 07/11/18 06:34 Blood Pressure 116/77 07/11/18 06:34 O2 Sat by Pulse Oximetry (%) 99 07/10/18 21:00 Findings/Remarks: AWAKE ALERT FEELING BETTER Constitutional: Yes: No Distress Eyes: Yes: WNL HENT: Yes: WNL Neck: Yes: WNL Cardiovascular: Yes: WNL Respiratory: Yes: WNL Gastrointestinal: Yes: WNL Renal/: Yes: WNL Musculoskeletal: Yes: WNL Extremities: Yes: WNL Edema: No Peripheral Pulses WNL: Yes Integumentary: Yes: WNL Wound/Incision: Yes: Clean/Dry Neurological: Yes: WNL ...Motor Strength: WNL Psychiatric: Yes: WNL Labs: CBC, BMP 07/10/18 07:00 07/10/18 07:00 Discharge Summary Reason For Visit: SHORTNESS OF BREATH/SYNCOPE AND COLLAPSE Current Active Problems Shortness of breath (Acute) ETOH WITHDRAWELS ACUTE ON CHRONIC COPD EXACERBATION Procedures: Principal: CT CHEST Other Procedures: [facility] Course: ADMITTED ACUTE ETOH WITHDRAWEL WITH ACUTE ON CHRONIC COPD EXACERBATION, TREATED WITH IV STEROIDS AND LIBRIUM PROTOCOL Condition: Improved - Instructions Diet, Activity, Other Instructions: SEE DR STORY TODAY TAPER PREDNISONE EO DETOX SUPPORT GROUP GIVEN Referrals: Timoteo Story, RES [Primary Care Provider] - Disposition: HOME - Home Medications Comprehensive Discharge Medication List: Ambulatory Orders NK [No Known Home Medication] 04/12/18
[2018-07-11] MEDS: FOLIC ACID 1 MG TABLET (FP) PO SCH (09:43)
[2018-07-11] MEDS: NICOTINE 21 MG/24 HOURS TOPICAL PATCH TD SCH (09:43)
[2018-07-11] MEDS: PANTOPRAZOLE 40 MG TABLET (FP) PO SCH (09:43)
[2018-07-11] MEDS: predniSONE 10 MG TABLET (UD) PO SCH (09:43)
[2018-07-11] MEDS: THIAMINE HCL 100 MG TABLET (FP) PO SCH (09:43)
[2018-07-11 12:20] VITALS: BP 129/54; PULSE 66; TEMP 98.3
== END 2018-07-11 11:11 | disposition home or self-care (01) | DRG 140 ==
LOC: JER 12:22 → JERBED 20:26 → J7W 22:27 → OBSVTOIN 07-08 09:00
PROVIDERS: ADMIT Internal Medicine; ATTEND Family Medicine
PROC: HZ2ZZZZ Detoxification Services for Substance Abuse Treatment (ICD-10-PCS; principal; 2018-07-07)
DX: J44.1 Chronic obstructive pulmonary disease with (acute) exacerbation (principal); K76.0 Fatty (change of) liver, not elsewhere classified; F17.210 Nicotine dependence, cigarettes, uncomplicated; G47.33 Obstructive sleep apnea (adult) (pediatric); F41.9 Anxiety disorder, unspecified; F14.10 Cocaine abuse, uncomplicated; I10 Essential (primary) hypertension; F10.239 Alcohol dependence with withdrawal, unspecified
CPT/HCPCS: 36415; 70450-TC; 71046-TC-FY; 73030-TC-LT-FY; 76705-TC; 80048; 80053; 80074; 80307; 82550; 82553; 83880; 84484; 85025; 85027; 86593; 93005; 93010; 99284-25; G0378; J7030

== ENCOUNTER 2018-08-03 15:09 | Emergency (ER) | payer OTHER ==
[2018-08-03 15:20] VITALS: BP 132/80; PULSE 94; TEMP 98.3; BMI 26.2
--- NOTE | 2018-08-03 15:43 | PDOC ---
History of Present Illness - General Chief Complaint: Rash Stated Complaint: RASH Time Seen by Provider: 08/03/18 15:13 History Source: Patient Exam Limitations: No Limitations - History of Present Illness Initial Comments: 08/03/18 15:42 53-year-old male with complaints of nasal drainage for the past week now with right ear pain and a bump to his lower cheek along with left upper quadrant dental pain. Patient also concerned about a rash which he noticed about 3 weeks ago that has continued to spread and itch. Patient denies recent travel, fever , chills, difficulty swallowing, difficult breathing, or diabetes. Patient with recent admission to [facility] approximately 3 weeks ago secondary to COPD exacerbation EtOH withdrawal Timing/Duration: constant Severity: mild Associated Symptoms: reports: rash Past History - Travel Traveled outside of the country in the last 30 days: No Close contact w/someone who was outside of country & ill: No - Past Medical History Allergies/Adverse Reactions: Allergies Allergy/AdvReac Type Severity Reaction Status Date / Time Fish Containing Products Allergy Severe Difficulty Verified 07/06/18 12:32 Breathing shellfish derived Allergy Severe Difficulty Verified 07/06/18 12:32 Breathing SEAFOOD Allergy Severe Difficulty Uncoded 07/06/18 12:32 Breathing Home Medications: Ambulatory Orders NK [No Known Home Medication] 08/03/18 Anemia: No Asthma: No Cancer: No Cardiac Disorders: No CVA: No COPD: No CHF: No Dementia: No Diabetes: No GI Disorders: No Disorders: No HTN: No Hypercholesterolemia: No Kidney Stones: No Liver Disease: Yes (fatty liver) Seizures: Yes (when overdose) Thyroid Disease: No - Surgical History Abdominal Surgery: Yes (COLON SURGERY 1989) Appendectomy: No Cardiac Surgery: No Cholecystectomy: No Gastric Stapling: No Lung Surgery: No Neurologic Surgery: No Orthopedic Surgery: No - Reproductive History Testicular Surgery: No - Suicide/Smoking/Psychosocial Hx Smoking Status: Yes Smoking History: Current every day smoker Have you smoked in the past 12 months: No Number of Cigarettes Smoked Daily: 10 Cigars Per Day: 0 Information on smoking cessation initiated: No 'Breaking Loose' booklet given: 04/13/18 Hx Alcohol Use: No Drug/Substance Use Hx: Yes Substance Use Type: Heroin, Opiates Hx Substance Use Treatment: Yes (One inpt detox @[facility]. [facility] inpt rehab) Patient Lives Alone: No Review of Systems - Review of Systems Able to Perform ROS?: Yes Constitutional: No: Symptoms Reported HEENTM: Yes: Ear Pain, Nose Congestion, Mouth Pain, Dental Problems Respiratory: No: Symptoms reported : No: Symptoms Reported Musculoskeletal: No: Symptoms Reported Integumentary: Yes: Pruritus, Rash Neurological: No: Symptoms reported Hematologic/Lymphatic: No: Symptoms Reported *Physical Exam - Vital Signs Last Vital Signs Temp Pulse Resp BP Pulse Ox 98.3 F 94 H 18 132/80 97 08/03/18 15:13 08/03/18 15:13 08/03/18 15:13 08/03/18 15:13 08/03/18 15:13 - Physical Exam General Appearance: Yes: Nourished, Appropriately Dressed, Alcohol on Breath. No: Apparent Distress HEENT: positive: EOMI, ZHENG, Nasal Congestion (yellowish green sputum), TM Erythema (right), Other (ruq tooth with tenderness upon tapping and mild erythema above gumline). negative: Pale Conjunctivae Neck: positive: Supple. negative: Lymphadenopathy (R), Lymphadenopathy (L) Respiratory/Chest: positive: Lungs Clear, Normal Breath Sounds. negative: Respiratory Distress, Accessory Muscle Use Cardiovascular: positive: Regular Rhythm, Regular Rate. negative: Murmur Integumentary: positive: Rash (scaly erythematous patchy rash to enrique antecubitals , chest, bacv, neck, and groin) Neurologic: positive: Motor Strength 5/5 (ambulatory) Medical Decision Making - Medical Decision Making 08/03/18 15:48 CC: rash, nasal congestion, rt ear pain, and dental pain Exam: noted ruq dental abscess, and tinia corpuris Plan: selenium shampoo and augmentin *DC/Admit/Observation/Transfer Diagnosis at time of Disposition: Dental abscess, Sinus congestion, Tinea corporis - Discharge Dispostion Disposition: HOME Condition at time of disposition: Good - Referrals Referrals: Ismael Frost MD [Primary Care Provider] - - Patient Instructions Printed Discharge Instructions: DI for Ringworm, Tooth Abscess Additional Instructions: Take medications as prescribed. Do not use any other topicals except what you have been prescribed today. - Post Discharge Activity
== END 2018-08-03 15:54 | disposition home or self-care (01) ==
LOC: JERFT 15:09
DX: K04.7 Periapical abscess without sinus (principal); B35.6 Tinea cruris; J34.89 Other specified disorders of nose and nasal sinuses
CPT/HCPCS: 99281-25

== ENCOUNTER 2018-08-17 18:00 | Emergency (ER) | payer OTHER ==
[2018-08-17 18:06] VITALS: BMI 26.2
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
--- NOTE | 2018-08-17 19:55 | PDOC ---
*Physical Exam - Vital Signs Last Vital Signs Temp Pulse Resp BP Pulse Ox 97.9 F 104 H 20 127/95 95 08/17/18 18:01 08/17/18 18:01 08/17/18 18:01 08/17/18 18:01 08/17/18 18:01 Medical Decision Making - Medical Decision Making 08/17/18 19:[address] Rodriguez and he will be coming to see the patient and repair the lid. 08/17/18 21:09 Dr. Rodriguez is at the bedside, and he has evaluated the patient and he is repairing the lid. Pt's vision is 20/40 and 20/50 bilaterally. Pt will get simple sutures in the lid. *DC/Admit/Observation/Transfer Diagnosis at time of Disposition: Eyelid laceration, left Qualifiers: Encounter type: initial encounter Qualified Code(s): S01.112A - Laceration without foreign body of left eyelid and periocular area, initial encounter - Discharge Dispostion Disposition: HOME Condition at time of disposition: Stable - Prescriptions Prescriptions: Bacitracin Ophthalmic Oint - 0.5 inch OS BID #1 tube - Referrals Referrals: Anibal Rodriguez MD [Staff Physician] - Ismael Frost MD [Primary Care Provider] - - Patient Instructions Additional Instructions: Discharge Instructions: You were seen in the emergency department for a laceration (cut) to your left upper eyelid. This injury was repaired with stitches. You were examined by an radiographer technologist, Dr Rodriguez, to make sure that there was no injury to your eye. Home Care: - Keep the laceration clean and dry. - Avoid getting the area wet for at least 24 hours. - When you wash your face, do not scrub at your eyelid - You may use ice packs for 15-20 minutes per hour for pain and swelling - You may use acetaminophen (Tylenol) 1000mg or ibuprofen (Motrin or Advil) 600mg every 6 hours as needed for pain. - Do NOT remove the sutures early as your laceration might not heal properly Follow Up: - Make an appointment to follow up with Dr Rodriguez (ophthalmology) in 10-14 days for suture removal. You have been provided with his information (attached). Try to call Sunday to make sure that you get an appointment at the appropriate time. - Seek immediate medical care if you have any change in vision, are unable to open your eye, you have severe headaches or multiple episodes of vomiting, or if you have any medical emergency. - Post Discharge Activity
[2018-08-17 20:15] VITALS: BP 118/77; PULSE 98; TEMP 98.3
[2018-08-17] MEDS ORDERED: LIDOCAINE HCL 1%, 10 MG/ML (20ML VIAL) ONE (20:54)
[2018-08-17] MEDS ORDERED: LIDOCAINE 1%/EPI 1:100000 (20 ML MULTI DOSE VIAL) ONE (20:56)
== END 2018-08-17 21:52 | disposition home or self-care (01) ==
LOC: JER 18:00
PROC: 08QPXZZ Repair Left Upper Eyelid, External Approach (ICD-10-PCS; principal; 2018-08-17)
DX: S01.112A Laceration without foreign body of left eyelid and periocular area, initial encounter (principal); Y29.XXXA Contact with blunt object, undetermined intent, initial encounter; Y93.89 Activity, other specified; Y92.89 Other specified places as the place of occurrence of the external cause; Y99.8 Other external cause status; Y07.410 Brother, perpetrator of maltreatment and neglect; F10.120 Alcohol abuse with intoxication, uncomplicated; Y90.9 Presence of alcohol in blood, level not specified
CPT/HCPCS: 12011; 99285-25

== ENCOUNTER 2018-11-09 22:57 | Emergency (ER) | payer OTHER ==
--- NOTE | 2018-11-09 23:43 | PDOC ---
History of Present Illness - General History Source: Patient Exam Limitations: No Limitations - History of Present Illness Initial Comments: 11/10/18 00:01 The patient is a 53 year old male, with a significant past medical history of hypertension, etoh abuse, JAYLYN, anxiety, asthma, who presents to the emergency department via EMS. As per patient, he was hanging out with a friend when he took 2 snorts of heroin and drank a pint of vodka. He notes going to sleep at which time his called for EMS. Patient was administered an unknown amount of Narcan in the field. While in the ED, patient has no complaints. He denies any recent fevers, chills, headache or dizziness. He denies any recent nausea, vomit, diarrhea or constipation. He denies any recent chest pain or shortness of breath. He denies any recent dysuria, frequency, urgency or hematuria. Allergies: Fish and shellfish Social History: Alcohol abuse (1pt vodka/day). Occasional heroin usage. Has a full-time job, lives at home with and children. Primary Care Physician: Dr. Frost <Parth Russo - Last Filed: 11/10/18 00:01> <Corinne Estrada - Last Filed: 11/10/18 02:10> - General Stated Complaint: Overdose Time Seen by Provider: 11/09/18 23:42 Past History <Parth Russo - Last Filed: 11/10/18 00:01> - Past Medical History Anemia: No Asthma: No Cancer: No Cardiac Disorders: No CVA: No COPD: No CHF: No Dementia: No Diabetes: No GI Disorders: No Disorders: No HTN: No Hypercholesterolemia: No Kidney Stones: No Liver Disease: Yes (fatty liver) Seizures: Yes (when overdose) Thyroid Disease: No - Surgical History Abdominal Surgery: Yes (COLON SURGERY 1989) Appendectomy: No Cardiac Surgery: No Cholecystectomy: No Gastric Stapling: No Lung Surgery: No Neurologic Surgery: No Orthopedic Surgery: No - Reproductive History Testicular Surgery: No - Suicide/Smoking/Psychosocial Hx Smoking Status: Yes Smoking History: Current every day smoker Have you smoked in the past 12 months: No Number of Cigarettes Smoked Daily: 10 Cigars Per Day: 0 'Breaking Loose' booklet given: 04/13/18 Hx Alcohol Use: No Drug/Substance Use Hx: Yes Substance Use Type: Alcohol, Heroin, Opiates Hx Substance Use Treatment: Yes ([facility] inpt detox [facility]. [facility] in[facility] rehab) <EstradaCorinne - Last Filed: 11/10/18 02:10> - Past Medical History Allergies/Adverse Reactions: Allergies Allergy/AdvReac Type Severity Reaction Status Date / Time Fish Containing Products Allergy Severe Difficulty Verified 08/17/18 18:06 Breathing shellfish derived Allergy Severe Difficulty Verified 08/17/18 18:06 Breathing SEAFOOD Allergy Severe Difficulty Uncoded 08/17/18 18:06 Breathing Home Medications: Ambulatory Orders Bacitracin Ophthalmic Oint - 0.5 inch OS BID #1 tube 08/17/18 Review of Systems - Review of Systems Able to Perform ROS?: Yes Comments:: 11/10/18 00:02 GENERAL/CONSTITUTIONAL: No fever or chills. No weakness. HEAD, EYES, EARS, NOSE AND THROAT: No change in vision. No ear pain or discharge. No sore throat. CARDIOVASCULAR: No chest pain or shortness of breath. RESPIRATORY: No cough, wheezing, or hemoptysis. GASTROINTESTINAL: No nausea, vomiting, diarrhea or constipation. GENITOURINARY: No dysuria, frequency, or change in urination. MUSCULOSKELETAL: No joint or muscle swelling or pain. No neck or back pain. SKIN: No rash NEUROLOGIC: No headache, vertigo, loss of consciousness, or change in strength/ sensation. ENDOCRINE: No increased thirst. No abnormal weight change. HEMATOLOGIC/LYMPHATIC: No anemia, easy bleeding, or history of blood clots. ALLERGIC/IMMUNOLOGIC: No hives or skin allergy. All Other Systems: Reviewed and Negative <Parth Russo - Last Filed: 11/10/18 00:01> *Physical Exam - Physical Exam Comments: 11/10/18 00:02 GENERAL: Awake, alert, and fully oriented, in no acute distress HEAD: No signs of trauma EYES: PERRLA, EOMI, sclera anicteric, conjunctiva clear ENT: Auricles normal inspection, hearing grossly normal, nares patent, oropharynx clear without exudates. Moist mucosa NECK: Normal ROM, supple, no lymphadenopathy, JVD, or masses LUNGS: Breath sounds equal, clear to auscultation bilaterally. No wheezes, and no crackles HEART: Regular rate and rhythm, normal S1 and S2, no murmurs, rubs or gallops ABDOMEN: Soft, nontender, normoactive bowel sounds. No guarding, no rebound. No masses EXTREMITIES: Normal range of motion, no edema. No clubbing or cyanosis. No cords, erythema, or tenderness NEUROLOGICAL: Cranial nerves II through XII grossly intact. Normal speech SKIN: Warm, Dry, normal turgor, no rashes or lesions noted. <Parth Russo - Last Filed: 11/10/18 00:01> Medical Decision Making - Medical Decision Making 11/10/18 02:09 Pt is awake, alert, normal mental status, able to walk a straight line; following commands. Normal exam. Not slurring speech. He wants to go home, and he is medically cleared to do so. He is refusing alcohol level and I do not think it is needed, as he is refusing to go to alcohol detox. Stable to go home by cab <Corinne Estrada - Last Filed: 11/10/18 02:10> *DC/Admit/Observation/Transfer - Attestations Scribe Attestion: 11/10/18 00:02 Documentation prepared by Parth Russo, acting as chief medical physicist for Corinne Estrada MD. <Parth Russo - Last Filed: 11/10/18 00:01> <Corinne Estrada - Last Filed: 11/10/18 02:10> Diagnosis at time of Disposition: ETOH abuse, Heroin abuse - Discharge Dispostion Disposition: HOME Condition at time of disposition: Improved - Referrals Referrals: Timoteo Frost RES [Primary Care Provider] - - Patient Instructions Printed Discharge Instructions: Getting Treatment for Drug Addiction - Post Discharge Activity
[2018-11-10 00:21] VITALS: BP 122/74; PULSE 81; TEMP 97.5; BMI 25.4
== END 2018-11-10 00:33 | disposition home or self-care (01) ==
LOC: JER 22:57
DX: F11.10 Opioid abuse, uncomplicated (principal); F10.10 Alcohol abuse, uncomplicated; I10 Essential (primary) hypertension; J45.909 Unspecified asthma, uncomplicated; G47.33 Obstructive sleep apnea (adult) (pediatric); F41.9 Anxiety disorder, unspecified
CPT/HCPCS: 36415; 80307; 99282-25

== ENCOUNTER 2019-09-29 17:10 | Emergency (ER) | payer OTHER ==
[2019-09-29 17:37] VITALS: BP 141/93; PULSE 97; TEMP 98; BMI 25.8
== END 2019-09-29 20:04 | disposition left against medical advice (07) ==
LOC: JERFT 17:10
DX: Z53.21 Procedure and treatment not carried out due to patient leaving prior to being seen by health care provider (principal)
CPT/HCPCS: 99281-25

== ENCOUNTER 2021-03-19 16:50 | Emergency (ER) | payer OTHER ==
[2021-03-19] MEDS ORDERED: NALOXONE HCL 0.4 MG/ML VIAL IVPUSH ONE (17:29)
[2021-03-19] MEDS ORDERED: NALOXONE HCL 0.4 MG/ML VIAL ONE ×2 (17:38→17:39)
[2021-03-19 18:21] VITALS: BP 121/64; TEMP 98.2; BMI 23.9
[2021-03-19] MEDS ORDERED: NALOXONE HCL 2 MG in DEXTROSE 5%-WATER - 495 ML IV SCH (18:30)
[2021-03-19 18:48] LABS: BASO % 0.3 % (0-2.0); EOS % 0.3 % (0-4.5); HEMATOCRIT 38.6 % (35.4-49); HEMOGLOBIN 13.3 GM/dL (11.7-16.9); LYMPH % 7.9 % (8-40); MCHC 34.5 g/dl (32.0-35.9); MEAN CELL VOLUME 98.6 fl (80-96); MEAN PLT VOLUME 7.6 fl (7.5-11.1); MONO % 10.3 % (3.8-10.2); NEUT % 81.2 % (42.8-82.8); PLATELET COUNT 345 10^3/uL (134-434); RBC 3.91 M/mm3 (4.00-5.60); RDW 13.2 % (11.9-15.9)
[2021-03-19 19:09] LABS: BLOOD UREA NITROGEN 20.3 mg/dL (7-18); CALCIUM 9.1 mg/dL (8.5-10.1)
[2021-03-19 19:10] LABS: ALBUMIN 3.6 g/dl (3.4-5.0)
[2021-03-19 19:13] LABS: CREATININE 1.1 mg/dL (0.55-1.3)
[2021-03-19 19:14] LABS: BILIRUBIN,TOTAL 0.3 mg/dL (0.2-1); TOT PROT 7.3 g/dl (6.4-8.2)
[2021-03-19 19:28] VITALS: PULSE 93
== END 2021-03-19 19:30 | disposition left against medical advice (07) ==
LOC: JER 16:50
PROC: 3E023NZ Introduction of Analgesics, Hypnotics, Sedatives into Muscle, Percutaneous Approach (ICD-10-PCS; principal; 2021-03-19)
PROC: 3E023NZ Introduction of Analgesics, Hypnotics, Sedatives into Muscle, Percutaneous Approach (ICD-10-PCS; 2021-03-19)
DX: T50.904A Poisoning by unspecified drugs, medicaments and biological substances, undetermined, initial encounter (principal)
CPT/HCPCS: 71045-TC-FY; 80053; 80307; 82550; 84484; 85025; 93005; 93010; 99284-25

== ENCOUNTER 2021-04-11 13:55 | Emergency (ER) | payer OTHER ==
[2021-04-11] MEDS ORDERED: NALOXONE HCL 0.4 MG/ML VIAL ONE ×2 (14:16→15:18)
[2021-04-11] MEDS ORDERED: ONDANSETRON 4 MG/2 ML VIAL ONE (14:16)
[2021-04-11 14:49] VITALS: BP 179/118; PULSE 111; TEMP 98.6; BMI 24.3
[2021-04-11] MEDS: NALOXONE HCL 0.4 MG/ML VIAL IVPUSH ONE ×2 (15:15→15:38)
== END 2021-04-11 16:00 | disposition left against medical advice (07) ==
LOC: JER 13:55
PROC: 3E033NZ Introduction of Analgesics, Hypnotics, Sedatives into Peripheral Vein, Percutaneous Approach (ICD-10-PCS; principal; 2021-04-11)
DX: T40.2X1A Poisoning by other opioids, accidental (unintentional), initial encounter (principal)
CPT/HCPCS: 82962; 93005; 93010; 99285-25